=== PATIENT | female | born 1970 | race Caucasian/White ===

== ENCOUNTER 2016-08-30 17:36 | Observation (INO) | payer OTHER ==
[~2016-08-30] VITALS: Ht 162.6 cm; Wt 69.8 kg
[~2016-08-30 17:36] MED LIST: ALPR0.5T3 PO; LEVO50TA4 PO; PROM25TA5 PO; PROT40TA PO; SUCR1TAB PO
[2016-08-30 17:38] VITALS: BP 127/81; PULSE 110; RESP 20; TEMP 98.2; O2SAT 98
[2016-08-30] MEDS ORDERED: SODIUM CHLOR 0.9% 1000 ML INJ 1,000 ML IV SCH (20:56)
[2016-08-30] MEDS ORDERED: KETOROLAC TROMETHAMINE 30 MG/ML (IVP) VIAL IVP ONE (21:00)
[2016-08-30] MEDS ORDERED: SODIUM CHLORIDE 0.9% FLUSH 10 ML FLUSH IV FLUSH PRN (21:00)
[2016-08-30] MEDS ORDERED: ONDANSETRON HCL 4 MG/2 ML VIAL IVP ONE (21:00)
[2016-08-30] MEDS ORDERED: BUPR150XL PO (21:12)
[2016-08-30] MEDS ORDERED: TRAM50TA PO (21:12)
--- NOTE | 2016-08-30 21:19 | PD ---
HPI Chief Complaint: GI Complaint Time Seen by Provider: 20:46 Travel History International Travel<30 days: No Contact w/Intl Traveler<30days: No Traveled to known affect area: No History of Present Illness HPI 45yo F with PMH of hiatal hernia and ulcer presents to the ED with c/o abdominal pain, NBNB vomiting and nonbloody diarrhea for 4 days. States pain is mainly lower abdomen, constant and nonradiating. Denies any fever, chest pain, sob, dysuria, hematuria, vaginal bleeding or discharge. PFSH Past Medical History Hx Anticoagulant Therapy: No Asthma: No Heart Rhythm Problems: No Cardiac Catheterization: No Cardiovascular Problems: No High Cholesterol: Yes Chemotherapy: No Congestive Heart Failure: No COPD: No Cerebrovascular Accident: No Diabetes: No Diminished Hearing: No Gastrointestinal Disorders: Yes (GASTRITIS) Headaches: Yes Hiatal Hernia: Yes Hypertension: No Musculoskeletal: Yes (CHRONIC BACK PAIN) Ulcer: Yes Tetanus Vaccination: > 5 Years Influenza Vaccination: No ?: Not LMP: 03/2016 Menopausal: Yes : 4 Para: 4 Tubal Ligation: Yes (2009) Past Surgical History Surgical History: No Previous Surgery Coronary Artery Bypass Graft: No Hysterectomy: No Mastectomy: Yes (LT LUMPECTOMY NON-CANCER) Oral Surgery: Yes (FX MANDIBLE REPAIR) Other Surgery: Yes (LUMP REMOVED FROM BREAST, JAW REPAIR) Social History Alcohol Use: No (none in 7 years) Tobacco Use: Yes (one pack) Substance Use: No Allergies-Medications (Allergen,Severity, Reaction): Coded Allergies: No Known Allergies (Verified , 08/30/16) Reported Meds & Prescriptions Reported Meds & Active Scripts Active Reported Sucralfate 1 Gm Tab 1 Gm PO TIDACHS on empty stomach Phenergan (Promethazine HCl) 25 Mg Tablet 25 Mg PO Q6H PRN Pantoprazole (Pantoprazole Sodium) 40 Mg Tab 40 Mg PO DAILY Levothyroxine (Levothyroxine Sodium) 50 Mcg Tab 50 Mcg PO DAILY Alprazolam 0.5 Mg Tab 0.5 Mg PO TID PRN Tramadol (Tramadol HCl) 50 Mg Tab 50 Mg PO Q8H PRN Wellbutrin Xl 24 HR (Bupropion HCl) 150 Mg Tab 150 Mg PO DAILY Review of Systems Except as stated in HPI: all other systems reviewed are Neg Physical Exam Narrative GENERAL: 45yo F in mild distress. SKIN: Focused skin assessment warm/dry. HEAD: Atraumatic. Normocephalic. CARDIOVASCULAR: Regular rate and rhythm. No murmur appreciated. RESPIRATORY: No accessory muscle use. Clear to auscultation. Breath sounds equal bilaterally. GASTROINTESTINAL: Abdomen soft, +TTP suprapubic region. No rebound tenderness or guarding. BACK: No CVA tenderness bilaterally. MUSCULOSKELETAL: No obvious deformities. No clubbing. No cyanosis. No edema. NEUROLOGICAL: Awake and alert. No obvious cranial nerve deficits. Motor grossly within normal limits. Normal speech. PSYCHIATRIC: Appropriate mood and affect; insight and judgment normal. Data Data Last Documented VS Vital Signs Date Time Temp Pulse Resp B/P Pulse Ox O2 Delivery O2 Flow Rate FiO2 08/30/16 21:21 93 20 118/75 99 08/30/16 17:38 98.2 Room Air Orders Complete Blood Count With Diff (08/30/16 20:56) Comprehensive Metabolic Panel (08/30/16 20:56) Lipase (08/30/16 20:56) Prothrombin Time / Inr (Pt) (08/30/16 20:56) Act Partial Throm Time (Ptt) (08/30/16 20:56) Urinalysis - C+S If Indicated (08/30/16 20:56) Ct Abd/Pel W Iv Contrast(Rout) (08/30/16 20:56) Iv Access Insert/Monitor (08/30/16 20:56) Ecg Monitoring (08/30/16 20:56) Oximetry (08/30/16 20:56) Ondansetron Inj (Zofran Inj) (08/30/16 21:00) Sodium Chlor 0.9% 1000 Ml Inj (Ns 1000 M (08/30/16 20:56) Sodium Chloride 0.9% Flush (Ns Flush) (08/30/16 21:00) Ketorolac Inj (Toradol Inj) (08/30/16 21:00) Ed Urine Pregnancytest Poc (08/30/16 20:56) Iohexol 350 Inj (Omnipaque 350 Inj) (08/30/16 22:22) Ciprofloxacin 400 Mg Premix (Cipro 400 M (08/30/16 23:15) Metronidazole 500 Mg Inj (Flagyl 500 Mg (08/30/16 23:15) C Diff Toxin Pcr (08/30/16 23:12) Morphine Inj (Morphine Inj) (08/30/16 23:15) Morphine Inj (Morphine Inj) (08/30/16 23:30) Admit Order (Ed Use Only) (08/30/16 23:43) Labs Laboratory Tests Test 08/30/16 08/30/16 21:00 21:43 White Blood Count 7.1 TH/MM3 Red Blood Count 3.73 MIL/MM3 Hemoglobin 11.8 GM/DL Hematocrit 36.2 % Mean Corpuscular Volume 96.9 FL Mean Corpuscular Hemoglobin 31.6 PG Mean Corpuscular Hemoglobin 32.6 % Concent Red Cell Distribution Width 14.0 % Platelet Count 261 TH/MM3 Mean Platelet Volume 8.4 FL Neutrophils (%) (Auto) 51.7 % Lymphocytes (%) (Auto) 33.9 % Monocytes (%) (Auto) 11.6 % Eosinophils (%) (Auto) 2.3 % Basophils (%) (Auto) 0.5 % Neutrophils # (Auto) 3.7 TH/MM3 Lymphocytes # (Auto) 2.4 TH/MM3 Monocytes # (Auto) 0.8 TH/MM3 Eosinophils # (Auto) 0.2 TH/MM3 Basophils # (Auto) 0.0 TH/MM3 CBC Comment AUTO DIFF Differential Comment AUTO DIFF CONFIRMED Prothrombin Time 11.8 SEC Prothromb Time International 1.1 RATIO Ratio Activated Partial 36.6 SEC Thromboplast Time Sodium Level 133 MEQ/L Potassium Level 3.3 MEQ/L Chloride Level 102 MEQ/L Carbon Dioxide Level 22.4 MEQ/L Anion Gap 9 MEQ/L Blood Urea Nitrogen 8 MG/DL Creatinine 0.89 MG/DL Estimat Glomerular Filtration 68 ML/MIN Rate Random Glucose 83 MG/DL Calcium Level 8.4 MG/DL Total Bilirubin 0.2 MG/DL Aspartate Amino Transf 18 U/L (AST/SGOT) Alanine Aminotransferase 12 U/L (ALT/SGPT) Alkaline Phosphatase 123 U/L Total Protein 7.4 GM/DL Albumin 2.6 GM/DL Lipase 134 U/L Urine Color YELLOW Urine Turbidity HAZY Urine pH 6.0 Urine Specific [place] 1.018 Urine Protein TRACE mg/dL Urine Glucose (UA) NEG mg/dL Urine Ketones NEG mg/dL Urine Occult Blood TRACE Urine Nitrite NEG Urine Bilirubin NEG Urine Urobilinogen LESS THAN 2.0 MG/DL Urine Leukocyte Esterase TRACE Urine RBC 2 /hpf Urine WBC 1 /hpf Urine Squamous Epithelial 5 /hpf Cells Urine Bacteria RARE /hpf Urine Hyaline Casts 7 /lpf Microscopic Urinalysis Comment CULT NOT INDICATED MDM Medical Decision Making Medical Screen Exam Complete: Yes Emergency Medical Condition: Yes Differential Diagnosis Cystitis vs. colitis vs. gastroenteritis Narrative Course 45yo F here with vomiting, abdominal pain and diarrhea. Labs reviewed, no leukocytosis. K: 3.3, will replaced. UA showed trace leukocyte. Culture not indicated. CTs/p showed marked bowel wall thickening throughout entire colon also involvement of the distal ileum most suggestive of inflammatory bowel disease. Pt given toradol and zofran and still with abdominal pain and some nausea. Pt given morphine. Pt given cipro/flagyl and admitted to [facility] hospitalist Dr. Whelan. Diagnosis Primary Impression: Pancolitis Admitting Information Admitting Physician Requests: Yolanda Padilla DO Aug 30, 2016 21:19
[2016-08-30 21:21] VITALS: BP 118/75; PULSE 93; RESP 20; O2SAT 99
[2016-08-30 21:34] LABS: AUTOMATED NEUTROPHIL # 3.7 TH/MM3 (1.8-7.7); BASOPHIL % 0.5 % (0.0-2.0); EOSINOPHIL # 0.2 TH/MM3 (0-0.4); EOSINOPHIL % 2.3 % (0.0-4.0); HEMATOCRIT 36.2 % (35.0-46.0); LYMPH % 33.9 % (9.0-44.0); LYMPHOCYTE # 2.4 TH/MM3 (1.0-4.8); MEAN CELL VOLUME 96.9 FL (80.0-100.0); MEAN CORPUSCULAR HEMOGLOBIN 31.6 PG (27.0-34.0); MEAN CORPUSCULAR HGB CONC 32.6 % (32.0-36.0); MONO % 11.6 % (0.0-8.0); NEUT % 51.7 % (16.0-70.0); PLATELET COUNT 261 TH/MM3 (150-450); RED BLOOD COUNT 3.73 MIL/MM3 (4.00-5.30); WHITE BLOOD COUNT 7.1 TH/MM3 (4.0-11.0)
[2016-08-30 21:42] LABS: HEMO FLAGS AUTO DIFF
[2016-08-30] MEDS ORDERED: PANT40TA3 PO (21:47)
[2016-08-30] MEDS ORDERED: LEVO50TA4 PO (21:47)
[2016-08-30] MEDS ORDERED: PROM25TA10 PO (21:47)
[2016-08-30] MEDS ORDERED: ALPR0.5T3 PO (21:47)
[2016-08-30] MEDS ORDERED: SUCR1TAB PO (21:47)
[2016-08-30 21:49] LABS: APTT (PATIENT) 36.6 SEC (24.3-30.1); INTERNATIONAL NORMALIZED RATIO 1.1 RATIO; PROTHROMBIN TIME - PATIENT 11.8 SEC (9.8-11.6)
[2016-08-30 21:53] LABS: ANION GAP 9 MEQ/L (5-15); AST (GOT) 18 U/L (15-37); BICARBONATE 22.4 MEQ/L (21.0-32.0); BLOOD UREA NITROGEN 8 MG/DL (7-18); CHLORIDE 102 MEQ/L (98-107); GLOMERULAR FILTRATION RATE 68 ML/MIN (>89); POTASSIUM 3.3 MEQ/L (3.5-5.1); SODIUM (NA) 133 MEQ/L (136-145)
[2016-08-30 21:54] LABS: ALT (GPT) 12 U/L (10-53)
[2016-08-30 21:55] LABS: BACTERIA, URINE RARE /hpf; BLOOD, URINE TRACE (NEG); COMMENT (UR) CULT NOT INDICATED; CULTURE IF INDICATED CULT NOT INDICATED; GLUCOSE,URINE NEG (NEG); HYALINE CAST, URINE 7 /lpf (RARE); KETONE, URINE NEG (NEG); NITRITE,URINE NEG (NEG); SQUAMOUS EPITHELIAL CELL URINE 5 /hpf (0-5); URINE COLOR YELLOW (YELLW/STRAW)
[2016-08-30 21:56] LABS: ALKALINE PHOSPHATASE 123 U/L (45-117); TOTAL BILIRUBIN ADULT 0.2 MG/DL (0.2-1.0)
[2016-08-30] MEDS ORDERED: IOHEXOL 350 MG/ML 10 ML VIAL (for RAD DIAG) IV ONE (22:22)
[2016-08-30 22:24] LABS: SCAN/DIFF AUTO DIFF CONFIRMED
--- NOTE | 2016-08-30 22:39 | RADRPT ---
EXAM DATE/TIME: 08/30/2016 22:19 [place] COMPARISON: CT ABDOMEN & PELVIS W CONTRAST, March 10, 2015, 18:03. INDICATIONS : Abdominal pain nausea and vomiting for 4 days. IV CONTRAST: 87 cc Omnipaque 350 (iohexol) IV ORAL CONTRAST: No oral contrast ingested. RADIATION DOSE: 7.88 CTDIvol (mGy) MEDICAL HISTORY : hiatal hernia, ulcer, hypercholesterolemia SURGICAL HISTORY : Tubal ligation. left mastectomy ENCOUNTER: Initial ACUITY: 4 - 6 days PAIN SCALE: 7/10 LOCATION: abdomen TECHNIQUE: Volumetric scanning of the abdomen and pelvis was performed. Using automated exposure control and ad justment of the mA and/or kV according to patient size, radiation dose was kept as low as reasonably achievable to obtain optimal diagnostic quality images. DICOM format image data is available electro nically for review and comparison. FINDINGS: LOWER LUNGS: The visualized lower lungs are clear. LIVER: Homogeneous density without lesion. There is no dilation of the biliary tree. SPLEEN: Normal size without lesion. PANCREAS: Normal without calcifications. ADRENAL GLANDS: Within normal limits.. KIDNEYS: Normal in size and shape. There is no mass, stone or hydronephrosis. CECUM: There is marked bowel wall thickening beginning in the terminal ileum extending throughout the entire length of the colon into the rectum. BOWEL/MESENTERY: . There is no free intraperitoneal air or fluid. ABDOMINAL WALL: Within normal limits. RETROPERITONEUM: There is no lymphadenopathy. PELVIS: Marked sigmoid bowel wall thickening is present without free fluid. INGUINAL: There is no lymphadenopathy or hernia. MUSCULOSKELETAL: Within normal limits for patient age. CONCLUSION: Marked bowel wall thickening throughout the entire colon also involvement of the distal ileum most beard ggestive of inflammatory bowel disease. This would be somewhat of an unusual appearance for MENDEZ coli tis the terminal ileum involvement. Chuy Durand MD FACR on August 30, 2016 at 22:35 Board Certified Radiologist. This report was verified electronically.
[2016-08-30] MEDS ORDERED: MORPHINE SULFATE 4 MG/ML INJ IV PUSH ONE (23:15)
[2016-08-30] MEDS ORDERED: CIPROFLOXACIN 400 MG PREMIX 200 ML IV ONE (23:15)
[2016-08-30] MEDS ORDERED: metroNIDAZOLE 500 MG INJ 100 ML IV ONE (23:15)
[2016-08-30] MEDS ORDERED: MORPHINE SULFATE 8 MG/ML INJ IV PUSH ONE (23:30)
[2016-08-30] MEDS: D5-1/2 NS + KCL 20 MEQ INJ 1,000 ML IV SCH (23:55)
[2016-08-31] VITALS (8 sets, daily range): BP systolic 93–115; BP diastolic 52–65; PULSE 70–81; RESP 16–21; TEMP 95.1–96.8; O2SAT 97–100
[2016-08-31] MEDS ORDERED: PROMETHAZINE HCL 25 MG TAB PO PRN
[2016-08-31] MEDS ORDERED: SODIUM CHLORIDE 0.9% FLUSH 10 ML FLUSH IV FLUSH PRN
[2016-08-31] MEDS ORDERED: BISACODYL 10 MG SUPP RECTAL PRN
[2016-08-31] MEDS ORDERED: MAGNESIUM HYDROXIDE SUSP 30 ML CUP PO PRN
[2016-08-31] MEDS ORDERED: NALOXONE HCL 0.4 MG/ML AMP IV PRN
[2016-08-31] MEDS ORDERED: SENNOSIDES 8.6 MG TAB PO PRN
[2016-08-31] MEDS ORDERED: LACTULOSE SYRUP 20 GM/30 ML CUP PO PRN
[2016-08-31] MEDS: ALPRAZolam 0.5 MG TAB PO PRN (01:05)
[2016-08-31] MEDS: MORPHINE SULFATE 8 MG/ML INJ IV PUSH PRN (03:14)
[2016-08-31 05:17] LABS: BICARBONATE 25.1 MEQ/L (21.0-32.0); POTASSIUM 3.3 MEQ/L (3.5-5.1)
[2016-08-31 05:44] LABS: AUTOMATED NEUTROPHIL # 2.6 TH/MM3 (1.8-7.7); BASOPHIL % 0.6 % (0.0-2.0); EOSINOPHIL # 0.1 TH/MM3 (0-0.4); EOSINOPHIL % 2.3 % (0.0-4.0); HEMATOCRIT 32.7 % (35.0-46.0); LYMPH % 42.4 % (9.0-44.0); LYMPHOCYTE # 2.5 TH/MM3 (1.0-4.8); MEAN CELL VOLUME 96.8 FL (80.0-100.0); MEAN CORPUSCULAR HEMOGLOBIN 32.5 PG (27.0-34.0); MEAN CORPUSCULAR HGB CONC 33.5 % (32.0-36.0); MONO % 11.9 % (0.0-8.0); NEUT % 42.8 % (16.0-70.0); PLATELET COUNT 237 TH/MM3 (150-450); RED BLOOD COUNT 3.38 MIL/MM3 (4.00-5.30); RED CELL DISTRIBUTION WIDTH 14.2 % (11.6-17.2)
[2016-08-31] MEDS: D5-1/2 NS + KCL 20 MEQ INJ 1,000 ML IV SCH ×2 (06:05→13:08)
[2016-08-31] MEDS: traMADol HCL 50 MG TAB PO PRN ×3 (06:10→21:06)
[2016-08-31] MEDS: LEVOTHYROXINE SODIUM 50 MCG TAB PO SCH (06:10)
[2016-08-31] MEDS: SUCRALFATE 1 GM TAB PO SCH ×4 (06:10→21:05)
[2016-08-31] MEDS: ONDANSETRON HCL 4 MG/2 ML VIAL IVP PRN (06:10)
[2016-08-31 06:17] LABS: HEMO FLAGS AUTO DIFF
[2016-08-31 06:59] LABS: PLATELET ESTIMATE SMEAR NORMAL (NORMAL); PLATELET MORPHOLOGY NORMAL (NORMAL); SCAN/DIFF AUTO DIFF CONFIRMED
[2016-08-31] MEDS: SODIUM CHLORIDE 0.9% FLUSH 10 ML FLUSH IV FLUSH SCH ×2 (08:20→21:00)
[2016-08-31] MEDS: PANTOPRAZOLE SOD 40 MG DELAYED RELEASE TAB PO SCH (09:00)
[2016-08-31] MEDS: DOCUSATE SODIUM 50 MG/SENNA 8.6 MG TAB PO SCH ×2 (09:47→21:00)
[2016-08-31] MEDS: buPROPion HCL 150 MG EXTENDED RELEASE TAB PO SCH (09:48)
--- NOTE | 2016-08-31 10:50 | PD.CONS ---
HPI History of Present Illness This is a 45 year old female with hx anxiety, hypthyroid, gastric ulcer, family hx IBD who presented with n/v, diarrhea, LLQ pain, weakness onset 5days ago. The LLQ pain has been on an off with no associated, aggravating, or relieving factors but today is constant. She also reports some black stool that appeared as if she was taking iron but she is not. She is having loose stool 3-4 x day. Denies recent abx, travel, diet change, fever. She recently started wellbutrin for anxiety. She has hx ulcer- had EGD 2y ago at [facility] showing ulcer and has been taking protonix ever since. Denies NSAID use, blood thinners. Distant hx heavy drinking and cocaine use but quit 7y ago. Never had colonoscopy. Her grandmother had Crohn's and her son has it. She has lost a few lbs in the last week since being sick but no unintended weight loss prior. PFSH Past Medical History hypothyroid gastric Ulcer hiatal hernia anxiety Past Surgical History left lumpectomy ORIF jaw Coded Allergies: No Known Allergies (Verified , 08/30/16) Family History Crohn's Social History quit drinking 7y ago, prior heavy drinker smokes 1ppd no illicit drug use currently, cocaine in past Review of Systems Constitutional: COMPLAINS OF: Fatigue, DENIES: Fever Eyes: DENIES: Blurred vision Ears, nose, mouth, throat: DENIES: Hearing loss Respiratory: DENIES: Cough Cardiovascular: DENIES: Chest pain Gastrointestinal: COMPLAINS OF: Abdominal pain, Black stools, Diarrhea, Nausea , Vomiting, DENIES: Bloody stools, Constipation, Hematemesis Genitourinary: DENIES: Hematuria Musculoskeletal: DENIES: Joint Swelling Integumentary: DENIES: Rash Neurologic: DENIES: Abnormal gait Psychiatric: COMPLAINS OF: Anxiety, DENIES: Confusion GI Exam Vitals I&O Vital Signs Date Time Temp Pulse Resp B/P Pulse Ox O2 Delivery O2 Flow Rate FiO2 08/31/16 08:00 96.5 73 16 101/55 97 08/31/16 07:10 18 08/31/16 06:00 95.4 81 20 112/62 99 08/31/16 03:15 72 20 97/57 99 08/31/16 02:45 74 20 93/52 100 Nasal Cannula 2 08/31/16 00:42 77 20 115/55 99 08/30/16 21:21 93 20 118/75 99 08/30/16 20:50 20 08/30/16 17:38 98.2 110 20 127/81 98 Room Air I/O 08/30/16 08/30/16 08/30/16 08/31/16 08/31/16 08/31/16 07:00 15:00 23:00 07:00 15:00 23:00 Intake Total 200 ml Balance 200 ml Intake IV Total 200 ml Imaging Last Impressions Abdomen/Pelvis CT 08/30/162055 Signed Impressions: Service Date/Time: Tuesday, August 30, 2016 22:19 - CONCLUSION: Marked bowel wall thickening throughout the entire colon also involvement of the distal ileum most suggestive of inflammatory bowel disease. This would be somewhat of an unusual appearance for MENDEZ colitis the terminal ileum involvement. Chuy Durand MD FACR Laboratory Test 08/30/16 08/30/16 08/31/16 21:00 21:43 04:10 White Blood Count 7.1 TH/MM3 6.0 TH/MM3 Red Blood Count 3.73 MIL/MM3 3.38 MIL/MM3 Hemoglobin 11.8 GM/DL 11.0 GM/DL Hematocrit 36.2 % 32.7 % Mean Corpuscular Volume 96.9 FL 96.8 FL Mean Corpuscular Hemoglobin 31.6 PG 32.5 PG Mean Corpuscular Hemoglobin 32.6 % 33.5 % Concent Red Cell Distribution Width 14.0 % 14.2 % Platelet Count 261 TH/MM3 237 TH/MM3 Mean Platelet Volume 8.4 FL 8.3 FL Neutrophils (%) (Auto) 51.7 % 42.8 % Lymphocytes (%) (Auto) 33.9 % 42.4 % Monocytes (%) (Auto) 11.6 % 11.9 % Eosinophils (%) (Auto) 2.3 % 2.3 % Basophils (%) (Auto) 0.5 % 0.6 % Neutrophils # (Auto) 3.7 TH/MM3 2.6 TH/MM3 Lymphocytes # (Auto) 2.4 TH/MM3 2.5 TH/MM3 Monocytes # (Auto) 0.8 TH/MM3 0.7 TH/MM3 Eosinophils # (Auto) 0.2 TH/MM3 0.1 TH/MM3 Basophils # (Auto) 0.0 TH/MM3 0.0 TH/MM3 CBC Comment AUTO DIFF AUTO DIFF Differential Comment AUTO DIFF AUTO DIFF CONFIRMED CONFIRMED Prothrombin Time 11.8 SEC Prothromb Time International 1.1 RATIO Ratio Activated Partial 36.6 SEC Thromboplast Time Sodium Level 133 MEQ/L 138 MEQ/L Potassium Level 3.3 MEQ/L 3.3 MEQ/L Chloride Level 102 MEQ/L 105 MEQ/L Carbon Dioxide Level 22.4 MEQ/L 25.1 MEQ/L Anion Gap 9 MEQ/L 8 MEQ/L Blood Urea Nitrogen 8 MG/DL 7 MG/DL Creatinine 0.89 MG/DL 0.69 MG/DL Estimat Glomerular Filtration 68 ML/MIN 92 ML/MIN Rate Random Glucose 83 MG/DL 77 MG/DL Calcium Level 8.4 MG/DL 8.0 MG/DL Total Bilirubin 0.2 MG/DL Aspartate Amino Transf 18 U/L (AST/SGOT) Alanine Aminotransferase 12 U/L (ALT/SGPT) Alkaline Phosphatase 123 U/L Total Protein 7.4 GM/DL Albumin 2.6 GM/DL Lipase 134 U/L 108 U/L Urine Color YELLOW Urine Turbidity HAZY Urine pH 6.0 Urine Specific [place] 1.018 Urine Protein TRACE mg/dL Urine Glucose (UA) NEG mg/dL Urine Ketones NEG mg/dL Urine Occult Blood TRACE Urine Nitrite NEG Urine Bilirubin NEG Urine Urobilinogen LESS THAN 2.0 MG/DL Urine Leukocyte Esterase TRACE Urine RBC 2 /hpf Urine WBC 1 /hpf Urine Squamous Epithelial 5 /hpf Cells Urine Bacteria RARE /hpf Urine Hyaline Casts 7 /lpf Microscopic Urinalysis Comment CULT NOT INDICATED Platelet Estimate NORMAL Platelet Morphology Comment NORMAL Red Cell Morphology Comment NORMAL Physical Examination HEENT: PERRL; normocephalic; atraumatic; no jaundice. CHEST: CTA CARDIAC: RRR ABDOMEN: Soft, nondistended, LLQ TTP; no hepatosplenomegaly; bowel sounds are present in all four quadrants. EXTREMITIES: No clubbing, cyanosis, or edema. SKIN: Normal; no rash; no jaundice. ENGAGEMENT LEAD: No focal deficits; alert and oriented times three. Assessment and Plan Plan ASSESSMENT - n/v, abd pain, diarrhea, black stool - fam hx Crohn's. No fever. ONset 5d ago. Hx ulcer - EGD 2y ago. never had colonoscopy. - hyperkalemia - per primary PLAN - stool cx - EGD/colonoscopy - obtain consents - clears today - NPO after midnight - miralax and dulcolax prep - further recommendations to follow This pt seen by myself and Dr Walters and this note is written on his behalf Marlene Gamboa Aug 31, 2016 10:50
--- NOTE | 2016-08-31 11:24 | MH ---
cc: GHADA ALVAREZ MD DATE OF ADMISSION 08/30/2016 DATE OF 1970 REASON FOR HOSPITAL ADMIT GI symptoms, right lower quadrant clamping and pain. HISTORY OF PRESENT ILLNESS This is a pleasant 45-year-old white female who has been struggling with acute abdominal pain, especially associated in the left lower quadrant. She states that the pain radiates across her left and right side, but is tender with light palpation in the left lower quadrant. She describes it as a cramping sensation that is also very painful with some sharp pain. The patient has noted nonbloody diarrhea for four days, some nausea and vomiting initially the first two days, but no vomiting since. She does continue with the decreased appetite and gastrocolic reflex when she tries to eat anything. The patient does note that her mother and her son both have diagnosis of Crohn's disease. The patient does note any weakness and fatigue sensation over the past few weeks. Symptoms described have worsened over the past week. The patient does have a history of hiatal hernia and gastric ulcer. The patient denies any chest pain, shortness of breath. No urinary dysuria symptoms. No headache. No constipation. PAST MEDICAL HISTORY Includes: 1. Ulcer disease 2. 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 4. Hyperlipidemia 5. Gastritis 6. Headaches 7. Chronic back pain 8. Previous alcohol and drug use, but clean for seven years. PAST SURGICAL HISTORY 1. Left lumpectomy non-cancerous 2. Fracture of the mandible and repair 3. Lump removed from breast ALLERGIES No known allergies. MEDICATIONS 1. Carafate 2. Phenergan p.r.n. 3. Propranolol 4. Levothyroxine 5. Xanax as needed 6. Tramadol 7. Wellbutrin SOCIAL HISTORY The patient single, lives in her home with her two children. Her mom this past year, so she has her dad in the home with her care for him. Currently smokes approximately one pack a day. No alcohol use in the past seven years at all. Previous history of some pot and cocaine use, but none in the past 7 years. FAMILY HISTORY Her mother and son both have Crohn's disease. REVIEW OF SYSTEMS A twelve-point review was obtained. Positives as noted in the HPI which include her pain in the left lower quadrant predominantly, but it does radiate across the entire lower abdomen. Mild anxiety noted related to her current condition. Nausea, vomiting, tired fatigue sensations, decreased appetite, weight loss, but unknown amount. Other systems negative or unremarkable. PHYSICAL EXAM VITAL SIGNS: Temperature is 96, pulse 73, respirations 20, blood pressure 101/55 as well was 93/52 and 115/55, O2 sat 97 currently on 2 liters nasal cannula as needed. GENERAL: A slim, but well-nourished white female who looks to be her stated age resting in the bed. SKIN: Pale, but warm and dry. She does have some old, but healed skin lesions/nodules especially on her lower extremities. She does have a few scratches and cuts which she states comes from caring for her animals in the house. HEENT: Atraumatic, normocephalic. PERRLA at 2, mucous membranes are slightly pale. Tongue is dry. Oral cavity is dry. No exudate. NECK: Supple. CARDIOVASCULAR: S1 and S2 regular rate and rhythm. No edema. EXTREMITIES: Lower extremities are warm to touch. Pulses are intact. LUNGS: Essentially clear anteriorly and posteriorly with some mild noisy rhonchi secondary to her smoking. No wheezing noted. ABDOMEN: Round, soft, mild tenderness in the left lower quadrant to light palpation. Active bowel. No distention. MUSCULOSKELETAL: Moves all extremities with purpose. She has no obvious deformities. NEUROLOGIC: She is alert, oriented and an honest good historian. 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 Tongue is midline. Speech is clear. PSYCHIATRIC: Mood and affect are appropriate with a mild anxiety noted. DIAGNOSTIC DATA Sodium 138, potassium 3.3, chloride 105 carbon oxide 25.1, amnion gap 8, BUN 7, creatinine 0.69, GFR was 68 on admission, now 92, random glucose normal at 83 and 77. Calcium is 8 and 8.4, alkaline phosphatase 123, albumin 2.6, lipase 134 and 108. WBC count 6, RBC 3.38 hemoglobin 11, hematocrit 32.7. Diff shows abnormal monocyte level at 11.9, other morphologies are normal. PT/INR is 1.1. Urine is yellow, hazy, pH of 6, specific gravity 1.018, protein trace occult blood and leukocyte esterase, negative for bilirubin, nitrites, ketones, and glucose. Culture is not indicated. IMAGING STUDIES Show abdomen/pelvis CT with marked bowel wall thickening throughout the entire colon and also involvement of the distal ileum most suggestive of inflammatory bowel disease. These would be somewhat of an unusual appearance for pancolitis with terminal ileum involvement. ASSESSMENT/PLAN 1. Inflammatory bowel disease, possible Crohn's disease. 2. History of gastritis and gastroesophageal reflux disease. 3. Hiatal hernia 4. Fatigue 5. Generalized weakness 6. Anemia 7. Hypokalemia 8. Mild protein calorie malnutrition 9. Weight loss 10. Anorexia 11. GI symptoms of nausea, vomiting and abdominal pain. PLAN Our plan is to admit, ECG monitoring, IV access, hydration with IV fluids. The patient was given IV Cipro x1, morphine x1 for pain. C. diff toxin has been ordered. Tramadol for pain management. Carafate and Protonix for gastroesophageal reflux disease and PUD prophylaxis. Medicines have been reconciled as warranted. Her IV fluids have a low dose potassium for stabilization of her hypokalemia. GI consult for their expert opinion. The patient is currently npo. After GI evaluation, further testing will be evaluated for her treatment and plan of care. Currently admission is observation admission. After the next 24 hours of evaluation and treatment regimen, we will adjust if needed our plan of care and process for this patient's hospital course. The patient is a full code, full aggressive care and we will follow. Dictated by PEREZ Romero MD MERVAT Armstrong/MAHESH /10:39 AM /11:00 AM
[2016-08-31] MEDS: HEPARIN SODIUM - SQ 10,000 UNITS/ML VIAL SQ SCH ×3 (13:07→22:58)
[2016-08-31 14:45] LABS: C. DIFF EPI 027 PRESUMPTIVE NEGATIVE (NEGATIVE); C. DIFF TOXIN PCR NEGATIVE (NEGATIVE)
[2016-08-31] MEDS ORDERED: POTASSIUM CHLOR 20 MEQ PREMIX 100 ML IV ONE (14:45)
[2016-08-31] MEDS ORDERED: POLYETHYLENE GLYCOL POWDER 255 GM BTL PO ONE (16:00)
[2016-08-31] MEDS ORDERED: POLYETHYLENE GLYCOL 17 GM PKG PO ONE ×2 (17:00→20:45)
--- NOTE | 2016-08-31 18:51 | HP.UPD ---
H&P Update Note seen, examined by myself, Dr Whelan, today 08/31/16 Pancolitis without evidence of Clostridium difficile Panendoscopy tomorrow GI following Discussed with patient Discussed with mid level provider The exam, history, and the medical decision-making described in the above note were completed with the assistance of the mid-level provider. I reviewed the findings presented. I attest that I had a [id number] encounter with the patient on the same day, and personally performed and documented my assessment and findings in the medical record. Cony Whelan MD Aug 31, 2016 18:50
[2016-08-31] MEDS ORDERED: BISACODYL EC 5 MG TABEC PO ONE (21:00)
[2016-08-31] MEDS ORDERED: LACTATED RINGER'S 1000 ML IV PRN (22:15)
[2016-08-31] MEDS: D5-1/2 NS + KCL 40 MEQ INJ 1,000 ML IV SCH (23:55)
[2016-09-01] VITALS (8 sets, daily range): BP systolic 97–109; BP diastolic 53–72; PULSE 71–84; RESP 17–20; TEMP 95.7–98.1; O2SAT 94–98
[2016-09-01] MEDS: SUCRALFATE 1 GM TAB PO SCH ×5 (06:08→20:41)
[2016-09-01] MEDS: LEVOTHYROXINE SODIUM 50 MCG TAB PO SCH (06:08)
[2016-09-01] MEDS: buPROPion HCL 150 MG EXTENDED RELEASE TAB PO SCH (08:11)
[2016-09-01] MEDS: SODIUM CHLORIDE 0.9% FLUSH 10 ML FLUSH IV FLUSH SCH ×2 (08:11→20:01)
[2016-09-01] MEDS: PANTOPRAZOLE SOD 40 MG DELAYED RELEASE TAB PO SCH ×2 (08:11→15:50)
[2016-09-01] MEDS: DOCUSATE SODIUM 50 MG/SENNA 8.6 MG TAB PO SCH ×2 (08:11→20:41)
[2016-09-01] MEDS: D5-1/2 NS + KCL 40 MEQ INJ 1,000 ML IV SCH (09:55)
[2016-09-01] MEDS ORDERED: GLUCAGON 1 MG/ML VIAL IV ONE (10:56)
[2016-09-01] MEDS ORDERED: PROPOFOL 200 MG/20 ML AMP IV PUSH ONE (11:20)
--- NOTE | 2016-09-01 11:27 | HHI.GIFU ---
Subjective Remarks Immediate postop note: EGD with biopsy and colonoscopy with biopsy Indication: Colitis Meds: MAC Findings: Esophagus: normal Stomach: gastritis biopsy taken Duodenum: two duodenal ulcers bulbar and distal bulb. TI ulcers consistent with crohns disease Biopsy Cecum and ascending colon colitis. Biopsy Rest of colon mild diffuse colitis. Objective Vitals I&O Vital Signs Date Time Temp Pulse Resp B/P Pulse Ox O2 Delivery O2 Flow Rate FiO2 09/01/16 10:22 98.1 75 18 97/53 94 09/01/16 08:00 96.7 75 17 97/53 94 09/01/16 06:00 103/72 09/01/16 04:00 96.1 72 20 97/53 95 09/01/16 00:00 96.6 84 20 109/68 97 08/31/16 20:00 95.1 70 21 106/65 98 08/31/16 16:00 96.8 76 16 104/58 99 08/31/16 12:00 96.5 70 16 100/57 98 I/O 08/31/16 08/31/16 08/31/16 09/01/16 09/01/16 09/01/16 07:00 15:00 23:00 07:00 15:00 23:00 Intake Total 200 ml 570 ml 1651 ml 286 ml Balance 200 ml 570 ml 1651 ml 286 ml Intake Oral 570 ml 900 ml 0 ml IV Total 200 ml 751 ml 286 ml # Voids 7 5 2 # Bowel Movements 7 5 2 Laboratory Laboratory Tests Test 08/31/16 11:30 Stool C. difficile Toxin (PCR) NEGATIVE Stl C. difficile Toxin PRESUMPTIVE Epiderm 027 NEGATIVE Date/Time Procedure Status Source Growth 08/31/16 11:30 Cryptosporidium Exam Received Stool Stool Pending 08/31/16 11:30 Giardia Antigen (BJ) Received Stool Stool Pending 08/31/16 11:30 - Final Complete Stool Stool Campylobacter Species Physical Exam HEENT: Pupils round and reactive to light; normocephalic; atraumatic; no jaundice. Throat is clear. NECK: Neck is supple, no JVD, no lymphadenopathy. CHEST: Chest is clear to auscultation and percussion. CARDIAC: Regular rate and rhythm with no murmur gallop or rubs. ABDOMEN: Soft, nondistended, nontender; no hepatosplenomegaly; bowel sounds are present in all four quadrants. EXTREMITIES: No clubbing, cyanosis, or edema. SKIN: Normal; no rash; no jaundice. 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 Assessment and Plan Plan ASSESSMENT - n/v, abd pain, diarrhea, black stool - fam hx Crohn's. No fever. ONset 5d ago. Hx ulcer - EGD 2y ago. never had colonoscopy. - hyperkalemia - per primary PLAN - stool cx - EGD/colonoscopy today 09/01 showed duodenal ulcers, gastritis. Colon showed crohns disease with ulcers in terminal ileum and diffuse colitis PPI bid and prednisone 40mg daily Wood Walters MD Sep 01, 2016 11:27
--- NOTE | 2016-09-01 12:20 | MR ---
cc: WOOD WALTERS JR., MD, MAZHAR MD DATE: 09/01/2016 PROCEDURE Esophagogastroduodenoscopy with biopsy and colonoscopy with biopsy. INDICATION Colitis and abdominal pain. REFERRING PHYSICIAN Dr. Whelan. PROCEDURE After informed consent was obtained, the patient was placed in left side down position. She was sedated by the anesthesia service. After adequate sedation was achieved the Pentax videoscope was inserted into the oropharynx and advanced to the esophagus, stomach and duodenum. It was then advanced deeply into the duodenum. It was then withdrawn slowly examining the mucosal surfaces carefully. In the antrum of the stomach two biopsies were obtained for gastritis. The scope was retroflexed in the fundus and cardia. The scope was then straightened and pulled through the mouth and the procedure was terminated. Colonoscopy was then performed. Digital rectal examination was normal. The Pentax videoscope was inserted in the anal canal and advanced to the colon reaching the terminal ileum. In the ileum there were a few Crohn's ulcers present, biopsy was obtained. The scope was withdrawn into the cecum and ascending colon and a biopsy was obtained there. The scope was then withdrawn through the rest of the colon and retroflex exam was performed in the rectum. The scope was then straightened and pulled through the anal canal. The procedure was terminated. She tolerated the procedure well and was returned to the recovery area in good condition. FINDINGS 1. The esophagus was normal. 2. In the stomach a biopsy was taken for gastritis. 3. In the duodenum there were two ulcers, one in the duodenal bulb and the other one in a distal bulb. There was no visible vessel, no bleeding. 4. In the terminal ileum there were a few ulcers consistent with Crohn's disease, biopsy was obtained. 5. In the cecum and ascending colon there was colitis. Biopsy was obtained there. 6. The rest of the colon was involved with mild diffuse colitis. IMPRESSION 1. Duodenal ulcers. 2. Gastritis. 3. Crohn's disease with involvement of the terminal ileum and the entire colon. RECOMMENDATIONS 1. We will double the Protonix 40 mg b.i.d. 2. The patient may begin prednisone 40 mg a day. 3. She is to follow up in the office in 2 weeks. 4. Regular diet has been ordered. Wood Walters MD HHS/TLL /11:48 AM /12:14 PM
[2016-09-01] MEDS: HEPARIN SODIUM - SQ 10,000 UNITS/ML VIAL SQ SCH (12:29)
[2016-09-01] MEDS: traMADol HCL 50 MG TAB PO PRN (12:31)
--- NOTE | 2016-09-01 12:32 | HHI.PR ---
Subjective Subjective Remarks resting in bed abd cramping persists eating and drinking soft foods after tests today. vital signs normal (Krista Levy) Review of Systems Constitutional Constitutional: Fatigue, Weight Change, Weakness Constitutional Remarks 10 point ROS done (Krista Levy) GI/Abdomen GI/Abdominal Exam: Diarrhea, Abdominal Pain (Krista Levy) Musculoskeletal MS: Weakness (Krista Levy) Psychiatric Psychiatric: Normal Mood, Anxiety (Krista Levy) Vitals/Results Intake & Output 08/31/16 08/31/16 09/01/16 15:00 23:00 07:00 Intake Total 570 ml 1651 ml 286 ml Balance 570 ml 1651 ml 286 ml Intake Oral 570 ml 900 ml 0 ml IV Total 751 ml 286 ml # Voids 7 5 2 # Bowel Movements 7 5 2 Vital Signs Vital Signs Date Time Temp Pulse Resp B/P Pulse Ox O2 Delivery O2 Flow Rate FiO2 09/01/16 12:00 95.7 78 18 98/64 98 09/01/16 11:43 73 18 98/60 98 09/01/16 11:33 79 18 100/65 98 09/01/16 11:23 98.4 83 18 100/63 99 09/01/16 10:22 98.1 75 18 97/53 94 09/01/16 08:00 96.7 75 17 97/53 94 09/01/16 06:00 103/72 09/01/16 04:00 96.1 72 20 97/53 95 09/01/16 00:00 96.6 84 20 109/68 97 08/31/16 20:00 95.1 70 21 106/65 98 08/31/16 16:00 96.8 76 16 104/58 99 (Krista Levy) CBC/BMP: 08/31/16 0410 08/31/16 0410 Physical Exam Eyes Eye Exam: Pupils Equal, Pupils Reactive (Krista Levy) Ears & Nose Ears & Nose Exam: Nasal Mucosa [place] (Krista Levy) Throat Throat Exam: Oral Mucosa [place] & Moist (Krista Levy) Neck Neck Exam: Neck Supple (Cam,Krista M. COOK SUPERVISOR) Pulmonary Resp Exam: Clear Bilaterally (Cam,Krista M. COOK SUPERVISOR) Cardiology CV Exam: Regular (Byers,Krista M. COOK SUPERVISOR) Gastrointestinal/Abdomen GI Exam: Bowel Sounds Present, Positive Bowel Movement, Non-Distended (Cam, Krista M. COOK SUPERVISOR) Musculoskeletal MS Exam: Joints Intact, Good Strength (Byers,Krista M. COOK SUPERVISOR) Integumentary Skin Exam: Warm, Dry, Intact (Cam,Krista M. COOK SUPERVISOR) Extremeties Extremities Exam: No Edema, Pedal Pulses Palpable (Byers,Krista M. COOK SUPERVISOR) Neurologic Neuro Exam: Alert, Awake, Oriented, Speech Clear, Moving All Extremities ( Cam,Krista M. COOK SUPERVISOR) Assessment/Plan Assessment/Plan 1. Inflammatory bowel disease, Crohn's disease 2. gastritis 3. Hiatal hernia 4. Fatigue 5. Generalized weakness 6. Anemia 7. Hypokalemia 8. Mild protein calorie malnutrition 9. Weight loss 10. Anorexia 11. GI symptoms of nausea, vomiting and abdominal pain. 12. GI ulcers X 2 vitals signs reviewed, normal trends S/P EGD ans colonoscopy, dx of chrohn's diease, ulcers X 2, and gastritis Abd. cramps continue especially on LLQ, states she will need steroids for now and f/u with GI as OP when stable. Symptoms of nausea, vomiting , wt. loss, low K+,fatigue, symptoms of Chrohns. Supportive care. Son has Chrohns. anemia, no acute blood loss, chronic disease monitor labs, symptom management diet advanced, PO Predisone started, continue IVF labs in am, check K (CamKrista M. 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 I reviewed the findings presented. I attest that I had a [id number] encounter with the patient on the same day, and personally performed and documented my assessment and findings in the medical record. (Cony Whelan MD) Krista Levy Sep 01, 2016 12:32 Cony Whelan MD Sep 01, 2016 18:43
[2016-09-01] MEDS ORDERED: POTASSIUM CHLORIDE 25 MEQ EFFERVESCENT TAB PO ONE (14:00)
[2016-09-01] MEDS: ONDANSETRON HCL 4 MG/2 ML VIAL IVP PRN (15:50)
[2016-09-01] MEDS: MORPHINE SULFATE 8 MG/ML INJ IV PUSH PRN ×2 (17:18→20:42)
[2016-09-01] MEDS ORDERED: methylPREDNISolone SOD SUCC 125 MG/2 ML VIAL IV PUSH ONE (18:45)
[2016-09-01] MEDS: predniSONE 20 MG TAB PO SCH (20:41)
[2016-09-01] MEDS: ALPRAZolam 0.5 MG TAB PO PRN (20:41)
[2016-09-02] VITALS: BP 102/55; PULSE 68; RESP 18; TEMP 96.6; O2SAT 98
[2016-09-02] MEDS: MORPHINE SULFATE 8 MG/ML INJ IV PUSH PRN ×3 (04:07→10:47)
[2016-09-02] MEDS: SUCRALFATE 1 GM TAB PO SCH ×3 (06:16→14:40)
[2016-09-02] MEDS: PANTOPRAZOLE SOD 40 MG DELAYED RELEASE TAB PO SCH ×2 (06:17→14:40)
[2016-09-02] MEDS: LEVOTHYROXINE SODIUM 50 MCG TAB PO SCH (06:17)
[2016-09-02 07:31] LABS: BICARBONATE 28.4 MEQ/L (21.0-32.0); POTASSIUM 6.1 MEQ/L (3.5-5.1)
[2016-09-02] MEDS: predniSONE 20 MG TAB PO SCH (07:47)
[2016-09-02] MEDS: buPROPion HCL 150 MG EXTENDED RELEASE TAB PO SCH (07:47)
[2016-09-02] MEDS: SODIUM CHLORIDE 0.9% FLUSH 10 ML FLUSH IV FLUSH SCH (07:47)
[2016-09-02] MEDS: DOCUSATE SODIUM 50 MG/SENNA 8.6 MG TAB PO SCH (07:47)
[2016-09-02 08:00] VITALS: BP 105/58; PULSE 79; RESP 17; TEMP 96.3; O2SAT 95
[2016-09-02] MEDS: HEPARIN SODIUM - SQ 10,000 UNITS/ML VIAL SQ SCH ×2 (10:46)
[2016-09-02] MEDS ORDERED: PRED20 PO (11:50)
[2016-09-02 12:00] VITALS: BP 108/72; PULSE 78; RESP 17; TEMP 95.9; O2SAT 97
[2016-09-02] MEDS ORDERED: MORPHINE SULFATE 30 MG TAB PO PRN ×2 (12:00→12:15)
[2016-09-02] MEDS ORDERED: MSIR30 PO (12:03)
[2016-09-02] MEDS: ALPRAZolam 0.5 MG TAB PO PRN (12:58)
--- NOTE | 2016-09-02 15:16 | HHI.GIFU ---
Subjective Remarks Pt sitting up in bed, getting ready to go home. Still has abd discomfort but n/ v improved. Objective Vitals I&O Vital Signs Date Time Temp Pulse Resp B/P Pulse Ox O2 Delivery O2 Flow Rate FiO2 09/02/16 12:00 95.9 78 17 108/72 97 09/02/16 08:00 96.3 79 17 105/58 95 09/02/16 04:12 18 09/02/16 00:00 96.6 68 18 102/55 98 09/01/16 20:00 97.2 71 20 108/58 96 09/01/16 16:00 97.3 81 18 107/69 96 I/O 09/01/16 09/01/16 09/01/16 09/02/16 09/02/16 09/02/16 07:00 15:00 23:00 07:00 15:00 23:00 Intake Total 286 ml 1020 ml 320 ml 480 ml 240 ml Balance 286 ml 1020 ml 320 ml 480 ml 240 ml Intake Oral 0 ml 220 ml 320 ml 480 ml 240 ml IV Total 286 ml Other 800 ml # Voids 2 5 2 5 3 # Bowel Movements 2 0 0 1 0 Laboratory Laboratory Tests Test 09/02/16 09/02/16 06:05 11:55 Sodium Level 139 Potassium Level 6.1 4.9 Chloride Level 107 Carbon Dioxide Level 28.4 Anion Gap 4 Blood Urea Nitrogen 3 Creatinine 0.54 Estimat Glomerular Filtration 122 Rate Random Glucose 115 Calcium Level 8.1 Date/Time Procedure Status Source Growth 08/31/16 11:30 Cryptosporidium Exam - Final Complete Stool Stool NEGATIVE - NO CRYPTOSPORIDIUM ANTIGEN... 08/31/16 11:30 Giardia Antigen (BJ) - Final Complete Stool Stool NEGATIVE - NO GIARDIA ANTIGEN DETECTE... 08/31/16 11:30 - Final Complete Stool Stool Campylobacter Species Imaging Last Impressions Abdomen/Pelvis CT 08/30/162055 Signed Impressions: Service Date/Time: Tuesday, August 30, 2016 22:19 - CONCLUSION: Marked bowel wall thickening throughout the entire colon also involvement of the distal ileum most suggestive of inflammatory bowel disease. This would be somewhat of an unusual appearance for MENDEZ colitis the terminal ileum involvement. Chuy Durand MD FACR Physical Exam HEENT: PERRL; normocephalic; atraumatic; no jaundice. CHEST: CTA CARDIAC: RRR ABDOMEN: Soft, nondistended, LLQ TTP; no hepatosplenomegaly; bowel sounds are present in all four quadrants. EXTREMITIES: No clubbing, cyanosis, or edema. SKIN: Normal; no rash; no jaundice. TELEVISION PROGRAM DIRECTOR: No focal deficits; alert and oriented times three. Assessment and Plan Plan ASSESSMENT - n/v, abd pain, diarrhea, black stool - fam hx Crohn's. No fever. ONset 5d ago. EGD/colonoscopy 09/01 showed duodenal ulcers, gastritis. Colon showed crohns disease with ulcers in terminal ileum and diffuse colitis - hyperkalemia - per primary PLAN - PPI bid and prednisone 40mg daily - start Pentasa tomorrow - okay for D/C from GI standpoint This pt seen by myself and Dr Walters and this note is written on his behalf Marlene Gamboa Sep 02, 2016 15:16
--- NOTE | 2016-09-02 18:39 | HHI.PR ---
Subjective Interval History Alert, oriented, still complaining of some pain, Ultram changed to oral morphine , Review of Systems Constitutional Constitutional: Fatigue, Weight Change, Weakness Constitutional Remarks 10 systems reviewed and negative except for the above GI/Abdomen GI/Abdominal Exam: Diarrhea, Abdominal Pain Musculoskeletal MS: Weakness Psychiatric Psychiatric: Normal Mood, Anxiety Vitals/Results Intake & Output 09/01/16 09/01/16 09/02/16 15:00 23:00 07:00 Intake Total 1020 ml 320 ml 480 ml Balance 1020 ml 320 ml 480 ml Intake Oral 220 ml 320 ml 480 ml Other 800 ml # Voids 5 2 5 # Bowel Movements 0 0 1 Vital Signs Vital Signs Date Time Temp Pulse Resp B/P Pulse Ox O2 Delivery O2 Flow Rate FiO2 09/02/16 12:00 95.9 78 17 108/72 97 09/02/16 08:00 96.3 79 17 105/58 95 09/02/16 04:12 18 09/02/16 00:00 96.6 68 18 102/55 98 09/01/16 20:00 97.2 71 20 108/58 96 CBC/BMP: 08/31/16 0410 09/02/16 1155 Lab Results Laboratory Tests Test 09/02/16 09/02/16 06:05 11:55 Sodium Level 139 MEQ/L Potassium Level 6.1 MEQ/L 4.9 MEQ/L Chloride Level 107 MEQ/L Carbon Dioxide Level 28.4 MEQ/L Anion Gap 4 MEQ/L Blood Urea Nitrogen 3 MG/DL Creatinine 0.54 MG/DL Estimat Glomerular Filtration 122 ML/MIN Rate Random Glucose 115 MG/DL Calcium Level 8.1 MG/DL Physical Exam General General Appearance: Well Nourished, Anxious Eyes Eye Exam: Pupils Equal, Pupils Reactive Ears & Nose Ears & Nose Exam: Nasal Mucosa [place] Throat Throat Exam: Oral Mucosa [place] & Moist Neck Neck Exam: Neck Supple Pulmonary Resp Exam: Clear Bilaterally Cardiology CV Exam: Regular Gastrointestinal/Abdomen GI Exam: Bowel Sounds Present, Positive Bowel Movement, Non-Distended Musculoskeletal MS Exam: Good Strength Integumentary Skin Exam: Warm, Dry, Intact Extremeties Extremities Exam: No Edema, Pedal Pulses Palpable Neurologic Neuro Exam: Alert, Awake, Oriented, Speech Clear Assessment/Plan Assessment/Plan Assessment Abdominal pain on admission, improved Status post panendoscopy this admission on 7/12/17 New diagnosis of duodenal ulcer New diagnosis of gastritis Possible new onset Crohn's disease Management Discharge home today Continue steroids Continue Protonix Follow-up with nephrology in 1-2 weeks Discussed with patient Discussed with nurse Discharge Minutes: 40 Cony Whelan MD Sep 02, 2016 18:39
[2016-09-03] MEDS ORDERED: MESALAMINE 250 MG CAP PO SCH (08:00)
== END 2016-09-02 16:14 | disposition home or self-care (01) ==
LOC: NEPD 17:36 → NEDA 23:45 → NEDH 08-31 03:45 → N07A 08-31 06:03
PROVIDERS: ADMIT Specialist; ATTEND Specialist
DX: K29.50 Unspecified chronic gastritis without bleeding (principal); K50.80 Crohn's disease of both small and large intestine without complications; K26.9 Duodenal ulcer, unspecified as acute or chronic, without hemorrhage or perforation; K63.3 Ulcer of intestine; K52.9 Noninfective gastroenteritis and colitis, unspecified; K21.9 Gastro-esophageal reflux disease without esophagitis; K44.9 Diaphragmatic hernia without obstruction or gangrene; R53.83 Other fatigue; R53.1 Weakness; D64.9 Anemia, unspecified; E87.6 Hypokalemia; E44.1 Mild protein-calorie malnutrition; E78.5 Hyperlipidemia, unspecified; E78.00 Pure hypercholesterolemia, unspecified; E03.9 Hypothyroidism, unspecified; G89.29 Other chronic pain; M54.9 Dorsalgia, unspecified; F41.9 Anxiety disorder, unspecified; F17.200 Nicotine dependence, unspecified, uncomplicated; Z79.899 Other long term (current) drug therapy
CPT/HCPCS: 00740; 00810; 43239; 45380; 74177; 80048; 80053; 81001; 83690; 84132; 84703; 85025; 85610; 85730; 87328; 87329; 87493; 87506; 88305; 88312; 96374; 96375; 99285; G0378; J0744; J1610; J1644; J1885; J2270; J2405; J2930; J3480; J7030; J7512; Q0169; Q9967

== ENCOUNTER 2016-09-19 23:55 | Emergency (ER) | payer OTHER ==
[~2016-09-19] VITALS: Ht 170.2 cm; Wt 70.0 kg
[~2016-09-19 23:55] MED LIST changes: +BUPR150XL PO; +MSIR30 PO; +PANT40TA3 PO; +PRED20 PO; +PROM25TA10 PO; -PROM25TA5 PO; -PROT40TA PO
[2016-09-20] VITALS: BP 144/78; PULSE 98; RESP 16; TEMP 98.3; O2SAT 98
[2016-09-20 00:15] VITALS: RESP 16; O2SAT 98
--- NOTE | 2016-09-20 01:14 | PD ---
HPI Chief Complaint: Abdominal Pain Time Seen by Provider: 00:58 Travel History International Travel<30 days: No Contact w/Intl Traveler<30days: No Traveled to known affect area: No History of Present Illness HPI 45 years old female complains of abdominal pain with nausea vomiting. Patient has history of Crohn's disease. Patient was admitted and discharged from [facility] 2 weeks ago. Patient states that the pain never resolved completely. Patient has appointment to follow with GI specialist soon. Patient states that she had 3 beers this evening. Patient states that she has increasing abdominal pain this evening. Patient states the pain is burning pain sharp pain around the epigastric and cramping pain on the left side abdomen. Patient denies any pain radiation. Patient denies any fever chills. Patient states that she has intermittent nausea vomiting tonight. Patient denies any dysuria or frequency. Patient denies any back pain. Patient has history of peptic ulcer, depression, hyperlipidemia, anxiety, headache. Patient status post tubal ligation, lumpectomy, jaw surgery. PFSH Past Medical History Hx Anticoagulant Therapy: No Asthma: No Blood Disorders: No Anxiety: Yes Depression: Yes Heart Rhythm Problems: No Cancer: No Cardiac Catheterization: No Cardiovascular Problems: No High Cholesterol: Yes Chemotherapy: No Congestive Heart Failure: No COPD: No Cerebrovascular Accident: No Diabetes: No Diminished Hearing: No Endocrine: No Gastrointestinal Disorders: Yes (GASTRITIS) Genitourinary: No Headaches: Yes Hiatal Hernia: Yes Hypertension: No Immune Disorder: No Musculoskeletal: No Neurologic: No Psychiatric: Yes (life becoming stressful) Reproductive: No (mesus Q 4-6 mos) Respiratory: No Ulcer: Yes Tetanus Vaccination: < 5 Years Influenza Vaccination: No ?: Not Menopausal: Yes : 4 Para: 4 Tubal Ligation: Yes (2009) Past Surgical History Coronary Artery Bypass Graft: No Hysterectomy: No Mastectomy: Yes (LT LUMPECTOMY NON-CANCER) Oral Surgery: Yes (FX MANDIBLE REPAIR) Other Surgery: Yes (lump out of breast) Family History Family Myocardial Infarction: Yes (FATHER AND GRANDFATHER HAD GARCIA'S.) Social History Alcohol Use: No (none in 7 years) Tobacco Use: Yes (one pack) Substance Use: No Allergies-Medications (Allergen,Severity, Reaction): Coded Allergies: No Known Allergies (Verified , 09/19/16) Reported Meds & Prescriptions Reported Meds & Active Scripts Active Morphine IR (Morphine Sulfate) 30 Mg Tab 30 Mg PO Q4H PRN Prednisone 20 Mg Tab 20 Mg PO BID Reported Sucralfate 1 Gm Tab 1 Gm PO TIDACHS on empty stomach Phenergan (Promethazine HCl) 25 Mg Tablet 25 Mg PO Q6H PRN Pantoprazole (Pantoprazole Sodium) 40 Mg Tab 40 Mg PO DAILY Levothyroxine (Levothyroxine Sodium) 50 Mcg Tab 50 Mcg PO DAILY Alprazolam 0.5 Mg Tab 0.5 Mg PO TID PRN Wellbutrin Xl 24 HR (Bupropion HCl) 150 Mg Tab 150 Mg PO DAILY Review of Systems General / Constitutional: No: Fever Eyes: No: Visual changes HENT: No: Headaches Cardiovascular: No: Chest Pain or Discomfort Respiratory: No: Shortness of Breath Gastrointestinal: Positive: Nausea, Vomiting, Abdominal Pain Genitourinary: No: Dysuria Musculoskeletal: No: Pain Skin: No Rash Neurologic: No: Weakness Psychiatric: No: Depression Endocrine: No: Polydipsia Hematologic/Lymphatic: No: Easy Bruising Physical Exam Narrative GENERAL: Well-nourished, well-developed patient. SKIN: Focused skin assessment warm/dry. HEAD: Normocephalic. EYES: No scleral icterus. No injection or drainage. NECK: Supple, trachea midline. No JVD or lymphadenopathy. CARDIOVASCULAR: Regular rate and rhythm without murmurs, gallops, or rubs. RESPIRATORY: Breath sounds equal bilaterally. No accessory muscle use. GASTROINTESTINAL: Abdomen soft, nondistended. Patient has mild to moderate tenderness of patient epigastric and left side abdomen. No rebound tenderness. No mass. MUSCULOSKELETAL: No cyanosis, or edema. BACK: Nontender without obvious deformity. No CVA tenderness. Neurologic exam normal. Data Data Last Documented VS Vital Signs Date Time Temp Pulse Resp B/P Pulse Ox O2 Delivery O2 Flow Rate FiO2 09/20/16 00:02 16 09/20/16 00:00 98.3 98 144/78 98 Orders Complete Blood Count With Diff (09/20/16 01:05) Comprehensive Metabolic Panel (09/20/16 01:05) Prothrombin Time / Inr (Pt) (09/20/16 01:05) Act Partial Throm Time (Ptt) (09/20/16 01:05) Lipase (09/20/16 01:05) Urinalysis - C+S If Indicated (09/20/16 01:05) Chest, Single Ap (09/20/16 01:05) Ct Abd/Pel W Iv Contrast(Rout) (09/20/16 01:05) Iv Access Insert/Monitor (09/20/16 01:05) Ecg Monitoring (09/20/16 01:05) Oximetry (09/20/16 01:05) Alcohol (Ethanol) (09/20/16 01:05) Morphine Inj (Morphine Inj) (09/20/16 01:15) Ondansetron Inj (Zofran Inj) (09/20/16 01:15) Iohexol 350 Inj (Omnipaque 350 Inj) (09/20/16 03:03) Labs Laboratory Tests Test 09/20/16 01:10 White Blood Count 15.3 TH/MM3 Red Blood Count 3.63 MIL/MM3 Hemoglobin 12.1 GM/DL Hematocrit 35.2 % Mean Corpuscular Volume 97.1 FL Mean Corpuscular Hemoglobin 33.2 PG Mean Corpuscular Hemoglobin 34.2 % Concent Red Cell Distribution Width 15.0 % Platelet Count 383 TH/MM3 Mean Platelet Volume 7.1 FL Neutrophils (%) (Auto) 68.2 % Lymphocytes (%) (Auto) 25.3 % Monocytes (%) (Auto) 5.0 % Eosinophils (%) (Auto) 1.1 % Basophils (%) (Auto) 0.4 % Neutrophils # (Auto) 10.5 TH/MM3 Lymphocytes # (Auto) 3.9 TH/MM3 Monocytes # (Auto) 0.8 TH/MM3 Eosinophils # (Auto) 0.2 TH/MM3 Basophils # (Auto) 0.1 TH/MM3 CBC Comment DIFF FINAL Differential Comment Prothrombin Time 10.9 SEC Prothromb Time International 1.0 RATIO Ratio Activated Partial 25.1 SEC Thromboplast Time Sodium Level 138 MEQ/L Potassium Level 3.8 MEQ/L Chloride Level 100 MEQ/L Carbon Dioxide Level 29.6 MEQ/L Anion Gap 8 MEQ/L Blood Urea Nitrogen 11 MG/DL Creatinine 0.61 MG/DL Estimat Glomerular Filtration 106 ML/MIN Rate Random Glucose 74 MG/DL Calcium Level 8.0 MG/DL Total Bilirubin 0.3 MG/DL Aspartate Amino Transf 20 U/L (AST/SGOT) Alanine Aminotransferase 19 U/L (ALT/SGPT) Alkaline Phosphatase 73 U/L Total Protein 7.0 GM/DL Albumin 3.3 GM/DL Lipase 131 U/L Ethyl Alcohol Level 127 MG/DL [facility] Medical Decision Making Medical Screen Exam Complete: Yes Emergency Medical Condition: Yes Interpretation(s) Last Impressions Chest X-Ray 09/20/16104 Signed Impressions: Service Date/Time: Tuesday, September 20, 2016 01:29 - CONCLUSION: No acute disease. Artie Billy MD Abdomen/Pelvis CT 09/20/16104 Signed Impressions: Service Date/Time: Tuesday, September 20, 2016 02:59 - CONCLUSION: 1. Mildly nonspecific, nonobstructive bowel gas pattern which could represent a mild ileus or gastroenteritis. 2. No free air or fluid. Artie Billy MD 3:45 AM. CBC WBC 15.3. Normal differential. CMP within normal limit. Alcohol 127. Differential Diagnosis Differential diagnosis: Gastritis, PUD, pancreatitis, cholecystitis, colitis, UTI, pyelonephritis, nephrolithiasis, acute exacerbation of Crohn's disease Narrative Course 45 years old female with epigastric and left-sided abdominal pain. History of Crohn's disease. Normal saline solution 1 25 cc an hour. Protonix 40 mg IV. Zofran 4 mg IV. Morphine 2 mg IV. Diagnosis Primary Impression: Gastroenteritis Additional Impression: Alcohol abuse Patient Instructions: General Instructions Additional Instructions: Continue with Protonix and Carafate as directed. Bentyl as directed. Follow up with GI specialist as scheduled. Return if worse. Med/Other Pt SpecificInfo: Prescription(s) given Scripts Dicyclomine (Bentyl)10 Mg Cap10 Mg PO TID PRN (Bowel Management) #21 CAP Ref 0 Prov:Zhen Martinez MD 09/20/16 Disposition: 01 DISCHARGE HOME Condition: Stable (ERASED) Zhen Martinez MD Sep 20, 2016 01:14
[2016-09-20] MEDS ORDERED: ONDANSETRON HCL 4 MG/2 ML VIAL IV PUSH ONE (01:15)
[2016-09-20] MEDS ORDERED: MORPHINE SULFATE 4 MG/ML INJ IV PUSH ONE (01:15)
--- NOTE | 2016-09-20 01:34 | RADRPT ---
EXAM DATE/TIME: 09/20/2016 01:29 [facility] COMPARISON: CHEST SINGLE AP, March 10, 2015, 15:50. INDICATIONS : Chest pain. MEDICAL HISTORY : hiatal hernia, ulcer, hypercholesterolemia SURGICAL HISTORY : Tubal ligation. left mastectomy ENCOUNTER: Initial ACUITY: 1 day PAIN SCORE: 0/10 LOCATION: Bilateral chest FINDINGS: A single view of the chest demonstrates the lungs to be symmetrically aerated without evidence of mas s, infiltrate or effusion. The cardiomediastinal contours are unremarkable. Osseous structures are intact. CONCLUSION: No acute disease. Artie Billy MD on September 20, 2016 at 1:32 Board Certified Radiologist. This report was verified electronically.
[2016-09-20 01:51] LABS: AUTOMATED NEUTROPHIL # 10.5 TH/MM3 (1.8-7.7); BASOPHIL # 0.1 TH/MM3 (0-0.2); BASOPHIL % 0.4 % (0.0-2.0); EOSINOPHIL # 0.2 TH/MM3 (0-0.4); EOSINOPHIL % 1.1 % (0.0-4.0); HEMATOCRIT 35.2 % (35.0-46.0); HEMO FLAGS DIFF FINAL; LYMPH % 25.3 % (9.0-44.0); LYMPHOCYTE # 3.9 TH/MM3 (1.0-4.8); MEAN CELL VOLUME 97.1 FL (80.0-100.0); MEAN CORPUSCULAR HEMOGLOBIN 33.2 PG (27.0-34.0); MEAN CORPUSCULAR HGB CONC 34.2 % (32.0-36.0); NEUT % 68.2 % (16.0-70.0); PLATELET COUNT 383 TH/MM3 (150-450); RED BLOOD COUNT 3.63 MIL/MM3 (4.00-5.30); WHITE BLOOD COUNT 15.3 TH/MM3 (4.0-11.0)
[2016-09-20 01:58] LABS: APTT (PATIENT) 25.1 SEC (24.3-30.1); PROTHROMBIN TIME - PATIENT 10.9 SEC (9.8-11.6)
[2016-09-20 02:10] LABS: ALKALINE PHOSPHATASE 73 U/L (45-117); TOTAL BILIRUBIN ADULT 0.3 MG/DL (0.2-1.0)
[2016-09-20 02:12] LABS: ALT (GPT) 19 U/L (10-53); ANION GAP 8 MEQ/L (5-15); AST (GOT) 20 U/L (15-37); BICARBONATE 29.6 MEQ/L (21.0-32.0); BLOOD UREA NITROGEN 11 MG/DL (7-18); CHLORIDE 100 MEQ/L (98-107); GLOMERULAR FILTRATION RATE 106 ML/MIN (>89); POTASSIUM 3.8 MEQ/L (3.5-5.1); SODIUM (NA) 138 MEQ/L (136-145)
[2016-09-20] MEDS ORDERED: IOHEXOL 350 MG/ML 10 ML VIAL (for RAD DIAG) IV ONE (03:03)
--- NOTE | 2016-09-20 03:22 | RADRPT ---
EXAM DATE/TIME: 09/20/2016 02:59 [facility] COMPARISON: CT ABDOMEN & PELVIS W CONTRAST, August 30, 2016, 22:19. INDICATIONS : Recent Crohn's disease diagnosis. Epigastric and left sided abdominal pain. IV CONTRAST: 95 cc Omnipaque 350 (iohexol) IV ORAL CONTRAST: No oral contrast ingested. RADIATION DOSE: 9.96 CTDIvol (mGy) MEDICAL HISTORY : Hernia, hiatal. Crohns disease. SURGICAL HISTORY : Tubal ligation. ENCOUNTER: Initial ACUITY: 1 day PAIN SCALE: 10/10 LOCATION: Bilateral abdomen TECHNIQUE: Volumetric scanning of the abdomen and pelvis was performed. Using automated exposure control and ad justment of the mA and/or kV according to patient size, radiation dose was kept as low as reasonably achievable to obtain optimal diagnostic quality images. DICOM format image data is available electro nically for review and comparison. FINDINGS: LOWER LUNGS: The visualized lower lungs are clear. LIVER: Homogeneous density without lesion. There is no dilation of the biliary tree. No calcified gallston es. SPLEEN: Normal size without lesion. PANCREAS: Within normal limits. KIDNEYS: Normal in size and shape. There is no mass, stone or hydronephrosis. ADRENAL GLANDS: Within normal limits. VASCULAR: There is no aortic aneurysm. BOWEL/MESENTERY: No oral contrast was given limiting the sensitivity of the exam. There is no free air or fluid. There are multiple loops of nondilated air-containing small bowel with several small air-fluid levels. The colon is unremarkable in appearance. ABDOMINAL WALL: Within normal limits. RETROPERITONEUM: There is no lymphadenopathy. BLADDER: No wall thickening or mass. REPRODUCTIVE: Within normal limits. INGUINAL: There is no lymphadenopathy or hernia. MUSCULOSKELETAL: Within normal limits for patient age. CONCLUSION: 1. Mildly nonspecific, nonobstructive bowel gas pattern which could represent a mild ileus or gastroe nteritis. 2. No free air or fluid. Artie Billy MD on September 20, 2016 at 3:16 Board Certified Radiologist. This report was verified electronically.
[2016-09-20] MEDS ORDERED: DICY10 PO (04:11)
[2016-09-20 04:18] VITALS: BP 135/64
== END 2016-09-20 04:20 | disposition home or self-care (01) ==
LOC: NEPC 23:55
DX: K50.90 Crohn's disease, unspecified, without complications (principal); F10.10 Alcohol abuse, uncomplicated; Y90.6 Blood alcohol level of 120-199 mg/100 ml; Z72.0 Tobacco use
CPT/HCPCS: 71010; 74177; 80053; 80307; 83690; 85025; 85610; 85730; 96374; 96375; 99285; J2270; J2405; Q9967

== ENCOUNTER 2016-10-14 14:27 | Observation (INO) | payer OTHER ==
[2016-10-14] VITALS (7 sets, daily range): BP systolic 113–151; BP diastolic 68–87; PULSE 74–91; RESP 16–19; TEMP 98–98.2; O2SAT 97–100
[~2016-10-14] VITALS: Ht 162.6 cm; Wt 68.0 kg
[~2016-10-14 14:27] MED LIST changes: +DICY10 PO
--- NOTE | 2016-10-14 14:50 | PD ---
Physical Exam Time Seen by Provider: 14:49 Narrative 45yo F c/o epigastric pain since Tuesday. Hx of Crohns disease. GI cant see her until Spet 13. +N,V. Denies diarrhea, fever. Patient seen in triage. VS reviewed. Awaiting bed placement. Data Data Last Documented VS Vital Signs Date Time Temp Pulse Resp B/P (MAP) Pulse Ox O2 Delivery O2 Flow Rate FiO2 10/14/16 14:30 98.0 84 16 146/84 (104) 99 Orders Orders Complete Blood Count With Diff (10/14/16 14:47) Comprehensive Metabolic Panel (10/14/16 14:47) Urinalysis - C+S If Indicated (10/14/16 14:47) Ed Urine Pregnancytest Poc (10/14/16 14:47) Iv Access Insert/Monitor (10/14/16 14:47) Oxygen Administration (10/14/16 14:47) Oximetry (10/14/16 14:47) Lipase (10/14/16 14:47) MDM Supervised Visit with SELVIN: Lidia Ross Oct 14, 2016 14:50
[2016-10-14 16:11] LABS: AUTOMATED NEUTROPHIL # 12.7 TH/MM3 (1.8-7.7); BASOPHIL # 0.1 TH/MM3 (0-0.2); BASOPHIL % 0.3 % (0.0-2.0); EOSINOPHIL % 0.1 % (0.0-4.0); HEMATOCRIT 40.2 % (35.0-46.0); HEMO FLAGS DIFF FINAL; LYMPH % 15.6 % (9.0-44.0); LYMPHOCYTE # 2.5 TH/MM3 (1.0-4.8); MEAN CELL VOLUME 101.8 FL (80.0-100.0); MEAN CORPUSCULAR HEMOGLOBIN 32.3 PG (27.0-34.0); MEAN CORPUSCULAR HGB CONC 31.7 % (32.0-36.0); MONO % 3.9 % (0.0-8.0); NEUT % 80.1 % (16.0-70.0); PLATELET COUNT 424 TH/MM3 (150-450); RED BLOOD COUNT 3.95 MIL/MM3 (4.00-5.30); RED CELL DISTRIBUTION WIDTH 15.7 % (11.6-17.2); WHITE BLOOD COUNT 15.8 TH/MM3 (4.0-11.0)
[2016-10-14 16:12] LABS: BLOOD, URINE TRACE (NEG); COMMENT (UR) CULT NOT INDICATED; CULTURE IF INDICATED CULT NOT INDICATED; GLUCOSE,URINE NEG (NEG); HYALINE CAST, URINE 8 /lpf (RARE); KETONE, URINE NEG (NEG); MUCUS URINE FEW /lpf (OCC); NITRITE,URINE NEG (NEG); SQUAMOUS EPITHELIAL CELL URINE 4 /hpf (0-5); URINE COLOR YELLOW (YELLW/STRAW)
[2016-10-14] MEDS ORDERED: RANI300T PO (16:31)
[2016-10-14 16:47] LABS: ALKALINE PHOSPHATASE 91 U/L (45-117); TOTAL BILIRUBIN ADULT 0.4 MG/DL (0.2-1.0)
[2016-10-14 16:48] LABS: ALT (GPT) 20 U/L (10-53); ANION GAP 12 MEQ/L (5-15); AST (GOT) 26 U/L (15-37); BICARBONATE 23.4 MEQ/L (21.0-32.0); BLOOD UREA NITROGEN 6 MG/DL (7-18); CHLORIDE 102 MEQ/L (98-107); GLOMERULAR FILTRATION RATE 89 ML/MIN (>89); SODIUM (NA) 137 MEQ/L (136-145)
[2016-10-14] MEDS ORDERED: SODIUM CHLOR 0.9% 1000 ML INJ 1,000 ML IV SCH (16:53)
--- NOTE | 2016-10-14 16:55 | PD ---
HPI Chief Complaint: GI Complaint Time Seen by Provider: 16:20 Travel History International Travel<30 days: No Contact w/Intl Traveler<30days: No Traveled to known affect area: No PFSH Past Medical History Hx Anticoagulant Therapy: No Asthma: No Blood Disorders: No Anxiety: Yes Depression: Yes Heart Rhythm Problems: No Cancer: No Cardiac Catheterization: No Cardiovascular Problems: No High Cholesterol: Yes Chemotherapy: No Congestive Heart Failure: No COPD: No Cerebrovascular Accident: No Diabetes: No Diminished Hearing: No Endocrine: No Gastrointestinal Disorders: Yes (GASTRITIS) Genitourinary: No Headaches: Yes Hiatal Hernia: Yes Hypertension: No Immune Disorder: No Musculoskeletal: No Neurologic: No Psychiatric: Yes (life becoming stressful) Reproductive: No (mesus Q 4-6 mos) Respiratory: No Thyroid Disease: Yes Ulcer: Yes ?: Not LMP: 6 months ago Menopausal: Yes : 4 Para: 4 Tubal Ligation: Yes (2009) Past Surgical History Coronary Artery Bypass Graft: No Hysterectomy: No Mastectomy: Yes (LT LUMPECTOMY NON-CANCER) Oral Surgery: Yes (FX MANDIBLE REPAIR) Other Surgery: Yes (lump out of breast) Family History Family Myocardial Infarction: Yes (FATHER AND GRANDFATHER HAD GARCIA'S.) Social History Alcohol Use: No (none in 7 years) Tobacco Use: Yes (one pack) Substance Use: No Allergies-Medications (Allergen,Severity, Reaction): Coded Allergies: No Known Allergies (Verified , 10/14/16) Reported Meds & Prescriptions Reported Meds & Active Scripts Active Prednisone 20 Mg Tab 20 Mg PO BID Reported Ranitidine (Ranitidine HCl) 300 Mg Tab 300 Mg PO HS Sucralfate 1 Gm Tab 1 Gm PO TIDACHS on empty stomach Pantoprazole (Pantoprazole Sodium) 40 Mg Tab 40 Mg PO DAILY Alprazolam 0.5 Mg Tab 0.5 Mg PO TID PRN Data Data Last Documented VS Vital Signs Date Time Temp Pulse Resp B/P (MAP) Pulse Ox O2 Delivery O2 Flow Rate FiO2 10/14/16 18:04 88 19 151/86 (107) 100 Room Air 10/14/16 14:30 98.0 Orders Orders Complete Blood Count With Diff (10/14/16 14:47) Comprehensive Metabolic Panel (10/14/16 14:47) Urinalysis - C+S If Indicated (10/14/16 14:47) Ed Urine Pregnancytest Poc (10/14/16 14:47) Iv Access Insert/Monitor (10/14/16 14:47) Oxygen Administration (10/14/16 14:47) Oximetry (10/14/16 14:47) Lipase (10/14/16 14:47) Electrocardiogram (10/14/16 16:53) Ckmb (Isoenzyme) Profile (10/14/16 16:53) Troponin I (10/14/16 16:53) Chest, Single Ap (10/14/16 16:53) Sodium Chlor 0.9% 1000 Ml Inj (Ns 1000 M (10/14/16 16:53) Al-Mag Hy-Si 40-40-4 Mg/Ml Liq (Mag-Al P (10/14/16 17:00) Lidocaine 2% Viscous (Xylocaine 2% Visco (10/14/16 17:00) Pantoprazole Inj (Protonix Inj) (10/14/16 17:00) Aspirin Chew (Aspirin Chew) (10/14/16 17:30) Potassium Chloride Powder (Kcl Powder) (10/14/16 18:30) Morphine Inj (Morphine Inj) (10/14/16 18:45) Ondansetron Inj (Zofran Inj) (10/14/16 18:45) Admit Order (Ed Use Only) (10/14/16 18:39) Activity Bed Rest With Brp (10/14/16 18:40) Vital Signs (Adult) Q4H (10/14/16 18:40) Cardiac Rhythm .As Directed (10/14/16 18:40) Notify Dr: Other .PRN (10/14/16 18:40) Notify DrMarilin Parameters (10/14/16 18:40) Resp Oxygen Nasal Cannula (10/14/16 ) Diet Npo (10/15/16 Breakfast) Diet Heart Healthy (10/14/16 Dinner) Ckmb (Isoenzyme) Profile (10/14/16 18:40) Ckmb (Isoenzyme) Profile (10/14/16 21:40) Troponin I (10/14/16 18:40) Troponin I (10/14/16 21:40) Electrocardiogram (10/14/16 20:30) Electrocardiogram (10/14/16 23:30) ^ Obtain (10/14/16 18:40) Sodium Chloride 0.9% Flush (Ns Flush) (10/14/16 18:45) Sodium Chloride 0.9% Flush (Ns Flush) (10/14/16 21:00) Acetaminophen (Tylenol) (10/14/16 18:45) Ondansetron Inj (Zofran Inj) (10/14/16 18:45) Nitroglycerin Sl (Nitrostat Sl) (10/14/16 18:45) Youth Officer / Telemetry BART.Q8H (10/14/16 18:40) Wilian Bilateral/Knee High BART.QSHIFT (10/14/16 18:40) Labs Laboratory Tests Test 10/14/16 15:20 10/14/16 15:25 Urine Color YELLOW Urine Turbidity CLEAR Urine pH 6.0 Urine Specific [place] 1.028 Urine Protein TRACE mg/dL Urine Glucose (UA) NEG mg/dL Urine Ketones NEG mg/dL Urine Occult Blood TRACE Urine Nitrite NEG Urine Bilirubin NEG Urine Urobilinogen 2.0 MG/DL Urine Leukocyte Esterase NEG Urine RBC 1 /hpf Urine WBC 1 /hpf Urine Squamous Epithelial Cells 4 /hpf Urine Hyaline Casts 8 /lpf Urine Mucus FEW /lpf Microscopic Urinalysis Comment CULT NOT INDICATED White Blood Count 15.8 TH/MM3 Red Blood Count 3.95 MIL/MM3 Hemoglobin 12.7 GM/DL Hematocrit 40.2 % Mean Corpuscular Volume 101.8 FL Mean Corpuscular Hemoglobin 32.3 PG Mean Corpuscular Hemoglobin Concent 31.7 % Red Cell Distribution Width 15.7 % Platelet Count 424 TH/MM3 Mean Platelet Volume 7.1 FL Neutrophils (%) (Auto) 80.1 % Lymphocytes (%) (Auto) 15.6 % Monocytes (%) (Auto) 3.9 % Eosinophils (%) (Auto) 0.1 % Basophils (%) (Auto) 0.3 % Neutrophils # (Auto) 12.7 TH/MM3 Lymphocytes # (Auto) 2.5 TH/MM3 Monocytes # (Auto) 0.6 TH/MM3 Eosinophils # (Auto) 0.0 TH/MM3 Basophils # (Auto) 0.1 TH/MM3 CBC Comment DIFF FINAL Differential Comment Blood Urea Nitrogen 6 MG/DL Creatinine 0.71 MG/DL Random Glucose 96 MG/DL Total Protein 7.6 GM/DL Albumin 3.6 GM/DL Calcium Level 9.0 MG/DL Alkaline Phosphatase 91 U/L Aspartate Amino Transf (AST/SGOT) 26 U/L Alanine Aminotransferase (ALT/SGPT) 20 U/L Total Bilirubin 0.4 MG/DL Sodium Level 137 MEQ/L Potassium Level 3.0 MEQ/L Chloride Level 102 MEQ/L Carbon Dioxide Level 23.4 MEQ/L Anion Gap 12 MEQ/L Estimat Glomerular Filtration Rate 89 ML/MIN Total Creatine Kinase 36 U/L Troponin I LESS THAN 0.02 NG/ML Lipase 97 U/L MDM Diagnosis Primary Impression: Atypical chest pain Admitting Information Admitting Physician Requests: Observation Condition: Stable Ariane Hercules Oct 14, 2016 16:55
[2016-10-14] MEDS ORDERED: LIDOCAINE VISCOUS 2% SOLN 15 ML UDC PO ONE (17:00)
[2016-10-14] MEDS ORDERED: ALUMINUM/MAGNESIUM/SIMETH 30 ML CUP PO ONE (17:00)
[2016-10-14] MEDS ORDERED: PANTOPRAZOLE SODIUM 40 MG VIAL IV PUSH ONE (17:00)
--- NOTE | 2016-10-14 17:15 | RADRPT ---
EXAM DATE/TIME: 10/14/2016 17:06 [facility] COMPARISON: CHEST SINGLE AP, September 20, 2016, 1:29. INDICATIONS : Chest pain MEDICAL HISTORY : Crohn's disease. Abdominal hernia SURGICAL HISTORY : None. ENCOUNTER: Initial ACUITY: 4 - 6 days PAIN SCORE: 8/10 LOCATION: chest FINDINGS: The lungs are clear without infiltrate, nodule, or mass. There is no appreciable pleural effusion fo r technique. Heart and mediastinum are unremarkable. CONCLUSION: No acute cardiopulmonary disease. Meri Alfaro MD on October 14, 2016 at 17:12 Board Certified Radiologist. This report was verified electronically.
[2016-10-14] MEDS ORDERED: ASPIRIN 81 MG CHEW TAB CHEW ONE (17:30)
[2016-10-14 17:47] LABS: CREATINE KINASE 36 U/L (26-192)
[2016-10-14] MEDS ORDERED: POTASSIUM CHLORIDE 20 MEQ PWD PACKET PO ONE (18:30)
[2016-10-14] MEDS ORDERED: IOHEXOL 350 MG/ML 10 ML VIAL (for RAD DIAG) IVCONTRAST ONE (18:43)
[2016-10-14] MEDS ORDERED: MORPHINE SULFATE 4 MG/ML INJ IV PUSH ONE (18:45)
[2016-10-14] MEDS ORDERED: NITROGLYCERIN 0.4 MG SL 25 TABS/BTL SL PRN (18:45)
[2016-10-14] MEDS ORDERED: ONDANSETRON HCL 4 MG/2 ML VIAL IV PUSH ONE (18:45)
[2016-10-14] MEDS ORDERED: ONDANSETRON HCL 4 MG/2 ML VIAL IV PRN (18:45)
[2016-10-14] MEDS ORDERED: SODIUM CHLORIDE 0.9% FLUSH 10 ML FLUSH IV FLUSH PRN (18:45)
[2016-10-14] MEDS: SODIUM CHLORIDE 0.9% FLUSH 10 ML FLUSH IV FLUSH SCH (19:08)
[2016-10-14 20:08] LABS: CREATINE KINASE 25 U/L (26-192)
--- NOTE | 2016-10-14 20:55 | PD ---
HPI Chief Complaint: GI Complaint Time Seen by Provider: 16:20 Travel History International Travel<30 days: No Contact w/Intl Traveler<30days: No Traveled to known affect area: No History of Present Illness HPI 45 year old female of gastritis, hiatal hernia, anxiety presents to the ED for evaluation of epigastric pain with nausea and vomiting. Pt reports symptoms began 4 days ago and have waxed and waned for the last four days. She became concerned today when the pain moved more substernal. Pain is intermittent with waves of nausea. She denies any hematemesis or hematochezia. No diarrhea. No fever or chills. No other symptoms to report. Pt does smoke tobacco cigarettes. She states her son has Crohns and she has been told she does too, but "this is different and she is scared." PFSH Past Medical History Hx Anticoagulant Therapy: No Asthma: No Blood Disorders: No Anxiety: Yes Depression: Yes Heart Rhythm Problems: No Cancer: No Cardiac Catheterization: No Cardiovascular Problems: No High Cholesterol: Yes Chemotherapy: No Congestive Heart Failure: No COPD: No Cerebrovascular Accident: No Diabetes: No Diminished Hearing: No Endocrine: No Gastrointestinal Disorders: Yes (GASTRITIS) Genitourinary: No Headaches: Yes Hiatal Hernia: Yes Hypertension: No Immune Disorder: No Musculoskeletal: No Neurologic: No Psychiatric: Yes (life becoming stressful) Reproductive: No (mesus Q 4-6 mos) Respiratory: No Thyroid Disease: Yes Ulcer: Yes ?: Not LMP: 6 months ago Menopausal: Yes : 4 Para: 4 Tubal Ligation: Yes (2009) Past Surgical History Coronary Artery Bypass Graft: No Hysterectomy: No Mastectomy: Yes (LT LUMPECTOMY NON-CANCER) Oral Surgery: Yes (FX MANDIBLE REPAIR) Other Surgery: Yes (lump out of breast) Family History Family Myocardial Infarction: Yes (FATHER AND GRANDFATHER HAD GARCIA'S.) Social History Alcohol Use: No (none in 7 years) Tobacco Use: Yes (one pack) Substance Use: No Allergies-Medications (Allergen,Severity, Reaction): Coded Allergies: No Known Allergies (Verified , 10/14/16) Reported Meds & Prescriptions Reported Meds & Active Scripts Active Prednisone 20 Mg Tab 20 Mg PO BID Reported Ranitidine (Ranitidine HCl) 300 Mg Tab 300 Mg PO HS Sucralfate 1 Gm Tab 1 Gm PO TIDACHS on empty stomach Pantoprazole (Pantoprazole Sodium) 40 Mg Tab 40 Mg PO DAILY Alprazolam 0.5 Mg Tab 0.5 Mg PO TID PRN Review of Systems Except as stated in HPI: all other systems reviewed are Neg Physical Exam Narrative GENERAL: Well nourished female patient, holding her chest, appears uncomfortable SKIN: Warm and dry. HEAD: Atraumatic. Normocephalic. EYES: Pupils equal and round. No scleral icterus. No injection or drainage. ENT: No nasal bleeding or discharge. Mucous membranes pink and moist. NECK: Trachea midline. No JVD. CARDIOVASCULAR: Regular rate and rhythm. RESPIRATORY: No accessory muscle use. Clear to auscultation. Breath sounds equal bilaterally. GASTROINTESTINAL: Abdomen soft, non-tender, nondistended. MUSCULOSKELETAL: Extremities without clubbing, cyanosis, or edema. No obvious deformities. NEUROLOGICAL: Awake and alert. No obvious cranial nerve deficits. Motor grossly within normal limits. Five out of 5 muscle strength in the arms and legs. Normal speech. Data Data Last Documented VS Vital Signs Date Time Temp Pulse Resp B/P (MAP) Pulse Ox O2 Delivery O2 Flow Rate FiO2 10/14/16 18:04 88 19 151/86 (107) 100 Room Air 10/14/16 14:30 98.0 Orders Orders Complete Blood Count With Diff (10/14/16 14:47) Comprehensive Metabolic Panel (10/14/16 14:47) Urinalysis - C+S If Indicated (10/14/16 14:47) Ed Urine Pregnancytest Poc (10/14/16 14:47) Iv Access Insert/Monitor (10/14/16 14:47) Oxygen Administration (10/14/16 14:47) Oximetry (10/14/16 14:47) Lipase (10/14/16 14:47) Electrocardiogram (10/14/16 16:53) Ckmb (Isoenzyme) Profile (10/14/16 16:53) Troponin I (10/14/16 16:53) Chest, Single Ap (10/14/16 16:53) Sodium Chlor 0.9% 1000 Ml Inj (Ns 1000 M (10/14/16 16:53) Al-Mag Hy-Si 40-40-4 Mg/Ml Liq (Mag-Al P (10/14/16 17:00) Lidocaine 2% Viscous (Xylocaine 2% Visco (10/14/16 17:00) Pantoprazole Inj (Protonix Inj) (10/14/16 17:00) Aspirin Chew (Aspirin Chew) (10/14/16 17:30) Potassium Chloride Powder (Kcl Powder) (10/14/16 18:30) Morphine Inj (Morphine Inj) (10/14/16 18:45) Ondansetron Inj (Zofran Inj) (10/14/16 18:45) Admit Order (Ed Use Only) (10/14/16 18:39) Activity Bed Rest With Brp (10/14/16 18:40) Vital Signs (Adult) Q4H (10/14/16 18:40) Cardiac Rhythm .As Directed (10/14/16 18:40) Notify Dr: Other .PRN (10/14/16 18:40) Notify Parameters (10/14/16 18:40) Resp Oxygen Nasal Cannula (10/14/16 ) Diet Npo (10/15/16 Breakfast) Diet Heart Healthy (10/14/16 Dinner) Ckmb (Isoenzyme) Profile (10/14/16 18:40) Ckmb (Isoenzyme) Profile (10/14/16 21:40) Troponin I (10/14/16 18:40) Troponin I (10/14/16 21:40) Electrocardiogram (10/14/16 20:30) Electrocardiogram (10/14/16 23:30) ^ Obtain (10/14/16 18:40) Sodium Chloride 0.9% Flush (Ns Flush) (10/14/16 18:45) Sodium Chloride 0.9% Flush (Ns Flush) (10/14/16 21:00) Acetaminophen (Tylenol) (10/14/16 18:45) Ondansetron Inj (Zofran Inj) (10/14/16 18:45) Nitroglycerin Sl (Nitrostat Sl) (10/14/16 18:45) [employer] Certified Network Professional / Telemetry BART.Q8H (10/14/16 18:40) Wilian Bilateral/Knee High BART.QSHIFT (10/14/16 18:40) Labs Laboratory Tests Test 10/14/16 15:20 10/14/16 15:25 Urine Color YELLOW Urine Turbidity CLEAR Urine pH 6.0 Urine Specific [place] 1.028 Urine Protein TRACE mg/dL Urine Glucose (UA) NEG mg/dL Urine Ketones NEG mg/dL Urine Occult Blood TRACE Urine Nitrite NEG Urine Bilirubin NEG Urine Urobilinogen 2.0 MG/DL Urine Leukocyte Esterase NEG Urine RBC 1 /hpf Urine WBC 1 /hpf Urine Squamous Epithelial Cells 4 /hpf Urine Hyaline Casts 8 /lpf Urine Mucus FEW /lpf Microscopic Urinalysis Comment CULT NOT INDICATED White Blood Count 15.8 TH/MM3 Red Blood Count 3.95 MIL/MM3 Hemoglobin 12.7 GM/DL Hematocrit 40.2 % Mean Corpuscular Volume 101.8 FL Mean Corpuscular Hemoglobin 32.3 PG Mean Corpuscular Hemoglobin Concent 31.7 % Red Cell Distribution Width 15.7 % Platelet Count 424 TH/MM3 Mean Platelet Volume 7.1 FL Neutrophils (%) (Auto) 80.1 % Lymphocytes (%) (Auto) 15.6 % Monocytes (%) (Auto) 3.9 % Eosinophils (%) (Auto) 0.1 % Basophils (%) (Auto) 0.3 % Neutrophils # (Auto) 12.7 TH/MM3 Lymphocytes # (Auto) 2.5 TH/MM3 Monocytes # (Auto) 0.6 TH/MM3 Eosinophils # (Auto) 0.0 TH/MM3 Basophils # (Auto) 0.1 TH/MM3 CBC Comment DIFF FINAL Differential Comment Blood Urea Nitrogen 6 MG/DL Creatinine 0.71 MG/DL Random Glucose 96 MG/DL Total Protein 7.6 GM/DL Albumin 3.6 GM/DL Calcium Level 9.0 MG/DL Alkaline Phosphatase 91 U/L Aspartate Amino Transf (AST/SGOT) 26 U/L Alanine Aminotransferase (ALT/SGPT) 20 U/L Total Bilirubin 0.4 MG/DL Sodium Level 137 MEQ/L Potassium Level 3.0 MEQ/L Chloride Level 102 MEQ/L Carbon Dioxide Level 23.4 MEQ/L Anion Gap 12 MEQ/L Estimat Glomerular Filtration Rate 89 ML/MIN Total Creatine Kinase 36 U/L Troponin I LESS THAN 0.02 NG/ML Lipase 97 U/L [facility] Medical Decision Making Medical Screen Exam Complete: Yes Emergency Medical Condition: Yes Medical Record Reviewed: Yes Differential Diagnosis gastritis versus cholecystitis versus pancreatitis versus GERD versus atypical chest pain Narrative Course 45 year old female presents to the ED for evaluation . Pt has essentially a negative abdominal work up . She has been given GI cocktail and protonix with no relief of her symptoms. She reports this as being "different" and this rises concern for possible cardiac etiology. Pt did have a stress test in 2012 for chest pain. She continues to smoke tobacco cigarettes. Troponin is <0.02 and EKG is without acute concern, however, after discussion with my attending physician, Dr. Chen, we feel the patient will benefit from serial cardiac enzymes and chest pain center admission for observation. Plan is discussed with patient. She is in agreement with this plan of care. Diagnosis Primary Impression: Atypical chest pain Admitting Information Admitting Physician Requests: Observation Condition: Stable Ariane Hercules Oct 14, 2016 20:55
[2016-10-14 22:39] LABS: CREATINE KINASE 25 U/L (26-192)
[2016-10-14] MEDS: ACETAMINOPHEN 500 MG CPLT PO PRN (23:27)
[2016-10-15] VITALS (10 sets, daily range): BP systolic 114–126; BP diastolic 56–74; PULSE 73–88; RESP 15–18; TEMP 96.9–98.4; O2SAT 94–99
[2016-10-15] MEDS ORDERED: MORPHINE SULFATE 4 MG/ML INJ IV ONE (04:00)
[2016-10-15] MEDS: ACETAMINOPHEN 500 MG CPLT PO PRN ×4 (05:27→21:03)
--- NOTE | 2016-10-15 07:25 | HHI.HP ---
HPI Primary Care Physician Felice Lin M.D. Chief Complaint Abdominal pain History of Present Illness 45-year-old female history of ulcerative colitis, hiatal hernia, and 2 gastric ulcers presents to emergency room for further evaluation of abdominal pain. Onset Tuesday. Location epigastric and right upper quadrant described as consistent achy tenderness. Tuesday nausea all day, Tuesday vomited clear most of day. Tuesday reports "dry heaving all day associated with esophageal burning." Constipation since Tuesday followed by x3 loose stools on . Nausea and vomiting now resolved. Continues to complain of abdominal discomfort. Denies hematemesis, bloody stools, or melena. Follows with a GI specialist in [place] and scheduled for follow up appointment . Denies any chest pain or discomfort, pointing to epigastric, gastric, and RUQ area pain. Review of Systems General: Decrease appetite since Tuesday. Reports fatigue and weakness from continued abdominal discomfort. No fever or chills. HEENT: No GARCIA CV: No CP, pressure, or discomfort RESP: No SOB, cough, or sputum production GI: As stated above. Nausea and vomiting as resolved. Loose stool yesterday, no bowel movement today. Tenderness in RUQ and epigastric area. No distention, melena, or blood in the stool. : No dysuria, urgency, frequency EXT: No lower leg edema, no paraesthesias MS: No discomfort or change in ROM NEURO: No difficulty with balance, LOC, motor/sensory deficits PSYCH: No anxiety, depression. SKIN: No rashes, no concerning lesions Past Family Social History Allergies: Coded Allergies: No Known Allergies (Verified , 10/14/16) Past Medical History Gastric ulcers, Ulcerative colitis, hiatal hernia Past Surgical History Left lumpectomy Reported Medications Active Ranitidine (Ranitidine HCl) 300 Mg Tab 300 Mg PO HS Sucralfate 1 Gm Tab 1 Gm PO TIDACHS on empty stomach Pantoprazole (Pantoprazole Sodium) 40 Mg Tab 40 Mg PO DAILY Alprazolam 0.5 Mg Tab 0.5 Mg PO TID PRN Active Ordered Medications Current Medications Medications (Trade) Dose Ordered Sig/Bao Route Start Time Stop Time Status Last Admin (NS Flush) 2 ml UNSCH PRN IV FLUSH 10/14/16 18:45 (NS Flush) 2 ml BID IV FLUSH 10/14/16 21:00 10/14/16 19:08 (Tylenol) 500 mg Q4H PRN PO 10/14/16 18:45 10/15/16 05:27 (Zofran Inj) 4 mg Q6H PRN IV 10/14/16 18:45 (Nitrostat Sl) 0.4 mg Q5M PRN SL 10/14/16 18:45 Family History Father x3 SD beginning age 52. Social History No known diabetes, hypertension, or hyperlipidemia. Smokes 1pack/day. Denies any alcohol or illegal drug use. Past Cardiac Testing 12/14/12 Lexiscan-Unremarkable, EF 64% Physical Exam Vital Signs Vital Signs Date Time Temp Pulse Resp B/P (MAP) Pulse Ox O2 Delivery O2 Flow Rate FiO2 10/15/16 06:27 17 10/15/16 04:08 14 10/15/16 03:30 98.0 73 18 126/68 (87) 94 10/15/16 00:51 97.6 76 18 120/56 (77) 99 10/14/16 23:04 74 10/14/16 20:51 98.2 83 16 113/68 (83) 97 10/14/16 19:30 98 10/14/16 19:08 91 18 151/76 (101) 98 Room Air 10/14/16 18:04 88 19 151/86 (107) 100 Room Air 10/14/16 16:23 18 10/14/16 16:23 89 18 138/87 (104) 100 Room Air 10/14/16 16:23 100 Room Air 10/14/16 16:23 89 18 138/87 (104) 100 Room Air 10/14/16 14:30 98.0 84 16 146/84 (104) 99 Physical Exam GENERAL: Alert WN, WD, NAD, pleasant, female who appears older than stated age. HEAD: NC, AT CV: RRR, without murmur, rub, gallop, no JVD, S1-S2 no S3-S4. RESP: Clear lungs throughout bilateral, no crackles, wheeze, rhonchi, symmetrical chest rise, nonlabored, able to speak in full sentences ABD: Tender with palpation to RUQ, epigastric, and midabdominal area. Soft, ND, no masses, positive bowel tones. EXT: Pulses +24, no dependent edema MS: Normal tone 4 extremities, nontender, no obvious deformities, full range of motion NEURO: CN II through CN XII grossly intact, motor strength 5/5 PSYCH: A+O 3, pleasant affect, appropriate speech, appropriate mood and affect , insight and judgment SKIN: Normal turgor, normal texture, no lesions, no rashes, even hair distribution, multiple small healed areas on bilateral legs Laboratory Laboratory Tests Test 10/14/16 15:20 10/14/16 15:25 10/14/16 19:20 10/14/16 21:30 Urine Color YELLOW Urine Turbidity CLEAR Urine pH 6.0 Urine Specific [place] 1.028 Urine Protein TRACE Urine Glucose (UA) NEG Urine Ketones NEG Urine Occult Blood TRACE Urine Nitrite NEG Urine Bilirubin NEG Urine Urobilinogen 2.0 Urine Leukocyte Esterase NEG Urine RBC 1 Urine WBC 1 Urine Squamous Epithelial Cells 4 Urine Hyaline Casts 8 Urine Mucus FEW Microscopic Urinalysis Comment CULT NOT INDICATED White Blood Count 15.8 Red Blood Count 3.95 Hemoglobin 12.7 Hematocrit 40.2 Mean Corpuscular Volume 101.8 Mean Corpuscular Hemoglobin 32.3 Mean Corpuscular Hemoglobin Concent 31.7 Red Cell Distribution Width 15.7 Platelet Count 424 Mean Platelet Volume 7.1 Neutrophils (%) (Auto) 80.1 Lymphocytes (%) (Auto) 15.6 Monocytes (%) (Auto) 3.9 Eosinophils (%) (Auto) 0.1 Basophils (%) (Auto) 0.3 Neutrophils # (Auto) 12.7 Lymphocytes # (Auto) 2.5 Monocytes # (Auto) 0.6 Eosinophils # (Auto) 0.0 Basophils # (Auto) 0.1 CBC Comment DIFF FINAL Differential Comment Blood Urea Nitrogen 6 Creatinine 0.71 Random Glucose 96 Total Protein 7.6 Albumin 3.6 Calcium Level 9.0 Alkaline Phosphatase 91 Aspartate Amino Transf (AST/SGOT) 26 Alanine Aminotransferase (ALT/SGPT) 20 Total Bilirubin 0.4 Sodium Level 137 Potassium Level 3.0 Chloride Level 102 Carbon Dioxide Level 23.4 Anion Gap 12 Estimat Glomerular Filtration Rate 89 Total Creatine Kinase 36 25 25 Troponin I LESS THAN 0.02 LESS THAN 0.02 LESS THAN 0.02 Lipase 97 Result Diagram: 10/14/16 1525 10/14/16 1525 Imaging Last Impressions Chest X-Ray 10/14/16 1653 Signed Impressions: Service Date/Time: September 17:06 - CONCLUSION: No acute cardiopulmonary disease. Meri Alfaro MD Course EKG Normal sinus rhythm, normal axis, no ST or T-segment changes Caprini VTE Risk Assessment Caprini VTE Risk Assessment: No/Low Risk (score <= 1) Caprini Risk Assessment Model Point Value = 1 Point Value = 2 Point Value = 3 Point Value = 5 Age 41-60 Minor surgery BMI > 25 kg/m2 Swollen legs Varicose veins or History of unexplained or recurrent spontaneous Oral contraceptives or hormone replacement Sepsis (< 1 month) Serious lung disease, including pneumonia (< 1 month) Abnormal pulmonary function Acute myocardial infarction Congestive heart failure (< 1 month) History of inflammatory bowel disease Medical patient at bed rest Age 61-74 Arthroscopic surgery Major open surgery (> 45 min) Laparoscopic surgery (> 45 min) Malignancy Confined to bed (> 72 hours) Immobilizing plaster cast Central venous access Age >= 75 History of VTE Family history of VTE Factor V Leiden Prothrombin [id number] Lupus anticoagulant Anticardiolipin antibodies Elevated serum homocysteine Heparin-induced thrombocytopenia Other congenital or acquired thrombophilia Stroke (< 1 month) Elective arthroplasty Hip, pelvis, or leg fracture Acute spinal cord injury (< 1 month) Prophylaxis Regimen Total Risk Factor Score Risk Level Prophylaxis Regimen 0-1 Low Early ambulation 2 Moderate Order ONE of the following: *Sequential Compression Device (SCD) *Heparin 5000 units SQ BID 3-4 Higher Order ONE of the following medications: *Heparin 5000 units SQ TID *Enoxaparin/Lovenox 40 mg SQ daily (WT < 150 kg, CrCl > 30 mL/min) *Enoxaparin/Lovenox 30 mg SQ daily (WT < 150 kg, CrCl > 10-29 mL/min) *Enoxaparin/Lovenox 30 mg SQ BID (WT < 150 kg, CrCl > 30 mL/min) AND/OR *Sequential Compression Device (SCD) 5 or more Highest Order ONE of the following medications: *Heparin 5000 units SQ TID (Preferred with Epidurals) *Enoxaparin/Lovenox 40 mg SQ daily (WT < 150 kg, CrCl > 30 mL/min) *Enoxaparin/Lovenox 30 mg SQ daily (WT < 150 kg, CrCl > 10-29 mL/min) *Enoxaparin/Lovenox 30 mg SQ BID (WT < 150 kg, CrCl > 30 mL/min) AND *Sequential Compression Device (SCD) Assessment and Plan Assessment and Plan #1 Atypical chest pain-admitted to chest pain center. Ruled out with 3 sets of EKGs, cardiac enzymes, and monitored overnight. Seen and evaluated by Dr. Abundio Waters. No further cardiac testing required. No chest discomfort pointing to epigastric, mid abdominal, and right upper quadrant area. #2 Abdominal pain-continue Protonix, Carafate, and ranitidine. Consult GI for further recommendation. #3 Hypokalemia-40 mEq KCl provided in ER, repeat potassium level #4 Tobacco use-strongly encouraged and stressed the importance of tobacco sensation. Encouraged her to quit smoking. Jennifer Faye Oct 15, 2016 07:25
[2016-10-15] MEDS: SODIUM CHLORIDE 0.9% FLUSH 10 ML FLUSH IV FLUSH SCH ×2 (08:12→20:23)
[2016-10-15] MEDS ORDERED: PANTOPRAZOLE SOD 40 MG DELAYED RELEASE TAB PO SCH (09:30)
[2016-10-15] MEDS ORDERED: MORPHINE SULFATE 4 MG/ML INJ IV PUSH ONE (10:00)
[2016-10-15] MEDS ORDERED: FAMOTIDINE 20 MG TAB PO SCH (10:45)
--- NOTE | 2016-10-15 11:09 | PD.CONS ---
HPI History of Present Illness This is a 45 year old female with a history of Crohn's disease and ulcers. She was hospitalized in August of this year for nausea, vomiting, diarrhea, with abdominal pain. She was evaluated with EGD/Colonoscopy (09/01/16)-----> the esophagus was normal, in the stomacha biopsy was taken for gastritis, in the duodenum there were two ulcers, one in the duodenal bulb and the other one in a distal bulb. There was no visible vessel, no bleeding. In the terminal ileum there were a few ulcers consistent with Crohn's disease, biopsy was obtained, In the cecum and ascending colon there was colitis. Biopsy was obtained there. The rest of the colon was involved with mild diffuse colitis. Antral mucosa with regenerative epithelial changes and mild active chronic gastritis. A ching stain is negative for helicobacter; acutely and chronically inflamed granulation tissue with attached acute inflammatory exudate, consistent with acute ulceration, ascending colon biopsy with acute colitis. She was treated with a steroid taper and Protonix 40mg po BID. The patient reports that her symptoms did improve while on the steroids, but that still had some intermittent discomfort. She saw a GI doctor in [place] (? Dr. Roman) 2 weeks after her discharge, but that he did not have any of her records and therefore scheduled a follow up appointment for for another appointment after he could review her records. She reports that she completed the Steroids about 2 weeks ago. She is taking Protonix 40mg po once daily, Sucrafate 1 gram po TID, Zantac at night. She reports that she felt really good last week, but she started having nausea, abdominal pain with mid abdominal cramping on Tuesday. She states usually her pain is intermittent, but it has been a constant dull ache since Tuesday. It is aggravated by movement, coughing, deep breathing. She also has mild abdominal cramping in her epigastric area, that is aggravated by po intake. On Tuesday, she started having nausea and vomiting consisting of bilious material. Yesterday, her nausea and vomiting improved, but she started having diarrhea with 3 loose stools- no blood or mucous. She came to the ER for further evaluation. She is still having abdominal pain, but states she has not had a bowel movement today. Of note, her son and maternal grandmother has/had Crohn's disease. (Erica Mota) PFSH Past Medical History Crohn's disease Duodenal ulcers Gastritis Past Surgical History EGD/Colonoscopy Left lumpectomy Tubal ligation (Erica Mota) Coded Allergies: No Known Allergies (Verified , 10/14/16) Medications Allergies Coded Allergies Type Severity Reaction Last Updated Verified No Known Allergies 10/14/16 Yes Active Scripts Medications Dose Route/Sig Max Daily Dose Days Date Category Dose Instructions Ranitidine (Ranitidine HCl) 300 Mg Tab 300 Mg PO HS 10/14/16 Reported Prednisone 20 Mg Tab 20 Mg PO BID 09/02/16 Rx Sucralfate 1 Gm Tab 1 Gm PO TIDACHS 08/30/16 Reported on empty stomach Pantoprazole (Pantoprazole Sodium) 40 Mg Tab 40 Mg PO DAILY 08/30/16 Reported Alprazolam 0.5 Mg Tab 0.5 Mg PO TID PRN 08/30/16 Reported Family History Son and maternal grandmother has/had Crohn's disease Social History Smokes 1 PPD No ETOH No illicit drug use (Erica Mota) Review of Systems Constitutional: COMPLAINS OF: Fatigue, DENIES: Fever, Weight loss, Chills, Change in appetite Respiratory: DENIES: Cough Cardiovascular: DENIES: Chest pain Gastrointestinal: COMPLAINS OF: Abdominal pain, Diarrhea, Nausea, Vomiting, Heartburn, DENIES: Black stools, Bloody stools, Constipation, Swelling of Abdomen Musculoskeletal: DENIES: Joint pain Integumentary: DENIES: Abnormal pigmentation Hematologic/lymphatic: DENIES: Bruising Neurologic: DENIES: Headache Psychiatric: DENIES: Confusion (Erica Mota) GI Exam Vitals I&O Vital Signs Date Time Temp Pulse Resp B/P (MAP) Pulse Ox O2 Delivery O2 Flow Rate FiO2 10/15/16 08:58 98.1 79 16 114/69 (84) 96 10/15/16 07:37 84 10/15/16 06:27 17 10/15/16 04:08 14 10/15/16 03:30 98.0 73 18 126/68 (87) 94 10/15/16 00:51 97.6 76 18 120/56 (77) 99 10/14/16 23:04 74 10/14/16 20:51 98.2 83 16 113/68 (83) 97 10/14/16 19:30 98 10/14/16 19:08 91 18 151/76 (101) 98 Room Air 10/14/16 18:04 88 19 151/86 (107) 100 Room Air 10/14/16 16:23 18 10/14/16 16:23 89 18 138/87 (104) 100 Room Air 10/14/16 16:23 100 Room Air 10/14/16 16:23 89 18 138/87 (104) 100 Room Air 10/14/16 14:30 98.0 84 16 146/84 (104) 99 I/O 10/14/16 10/14/16 10/14/16 10/15/16 10/15/16 10/15/16 07:00 15:00 23:00 07:00 15:00 23:00 Intake Total 1000 ml Balance 1000 ml Intake IV Total 1000 ml # Voids 3 Imaging Last Impressions Chest X-Ray 10/14/16 2873 Signed Impressions: Service Date/Time: September 17:06 - CONCLUSION: No acute cardiopulmonary disease. Meri Alfaro MD Laboratory Test 10/14/16 15:20 10/14/16 15:25 10/14/16 19:20 10/14/16 21:30 Urine Color YELLOW Urine Turbidity CLEAR Urine pH 6.0 Urine Specific Edwards 1.028 Urine Protein TRACE mg/dL Urine Glucose (UA) NEG mg/dL Urine Ketones NEG mg/dL Urine Occult Blood TRACE Urine Nitrite NEG Urine Bilirubin NEG Urine Urobilinogen 2.0 MG/DL Urine Leukocyte Esterase NEG Urine RBC 1 /hpf Urine WBC 1 /hpf Urine Squamous Epithelial Cells 4 /hpf Urine Hyaline Casts 8 /lpf Urine Mucus FEW /lpf Microscopic Urinalysis Comment CULT NOT INDICATED White Blood Count 15.8 TH/MM3 Red Blood Count 3.95 MIL/MM3 Hemoglobin 12.7 GM/DL Hematocrit 40.2 % Mean Corpuscular Volume 101.8 FL Mean Corpuscular Hemoglobin 32.3 PG Mean Corpuscular Hemoglobin Concent 31.7 % Red Cell Distribution Width 15.7 % Platelet Count 424 TH/MM3 Mean Platelet Volume 7.1 FL Neutrophils (%) (Auto) 80.1 % Lymphocytes (%) (Auto) 15.6 % Monocytes (%) (Auto) 3.9 % Eosinophils (%) (Auto) 0.1 % Basophils (%) (Auto) 0.3 % Neutrophils # (Auto) 12.7 TH/MM3 Lymphocytes # (Auto) 2.5 TH/MM3 Monocytes # (Auto) 0.6 TH/MM3 Eosinophils # (Auto) 0.0 TH/MM3 Basophils # (Auto) 0.1 TH/MM3 CBC Comment DIFF FINAL Differential Comment Blood Urea Nitrogen 6 MG/DL Creatinine 0.71 MG/DL Random Glucose 96 MG/DL Total Protein 7.6 GM/DL Albumin 3.6 GM/DL Calcium Level 9.0 MG/DL Alkaline Phosphatase 91 U/L Aspartate Amino Transf (AST/SGOT) 26 U/L Alanine Aminotransferase (ALT/SGPT) 20 U/L Total Bilirubin 0.4 MG/DL Sodium Level 137 MEQ/L Potassium Level 3.0 MEQ/L Chloride Level 102 MEQ/L Carbon Dioxide Level 23.4 MEQ/L Anion Gap 12 MEQ/L Estimat Glomerular Filtration Rate 89 ML/MIN Total Creatine Kinase 36 U/L 25 U/L 25 U/L Troponin I LESS THAN 0.02 NG/ML LESS THAN 0.02 NG/ML LESS THAN 0.02 NG/ML Lipase 97 U/L Physical Examination HEENT: Normocephalic; atraumatic; no jaundice. CHEST: CTA CARDIAC: RRR ABDOMEN: Soft, nondistended, nontender; no hepatosplenomegaly; bowel sounds are present in all four quadrants. EXTREMITIES: No clubbing, cyanosis, or edema. SKIN: Normal; no rash; no jaundice. RETAIL SERVICE REPRESENTATIVE: No focal deficits; alert and oriented times three. (Erica Mota [facility]) Assessment and Plan Plan ASSESSMENT: - Abdominal pain with N/V/D. Recent dx of Crohn's Disease last month. EGD/ Colonoscopy (09/01/16)-----> the esophagus was normal, in the stomach biopsy was taken for gastritis, in the duodenum there were two ulcers, one in the duodenal bulb and the other one in a distal bulb. There was no visible vessel, no bleeding. In the terminal ileum there were a few ulcers consistent with Crohn's disease, biopsy was obtained, In the cecum and ascending colon there was colitis. Biopsy was obtained there. The rest of the colon was involved with mild diffuse colitis. Antral mucosa with regenerative epithelial changes and mild active chronic gastritis. A ching stain is negative for helicobacter; acutely and chronically inflamed granulation tissue with attached acute inflammatory exudate, consistent with acute ulceration, ascending colon biopsy with acute colitis. Leukocytosis. 15.8. Will get CT scan abdomen and pelvis with IV/PO contrast. Start Solumedrol 40mg IV daily, Pentasa 1000mg qid. Stool studies. Further recommendations to follow based on results of above. Suspect crohn's exacerbation. - Leukocytosis. WBC 15.8. Get CT, likely inflammatory. Will also get stool studies. - Recent hx of duodenal ulcers, gastritis. D/C Pepcid. Increase Protonix 40mg po BID. PLAN: - Clear liquids - CT Scan abdomen and pelvis IV/PO contrast - Stool for CDiff, O&P, Giardia, C/S - Solumedrol 40mg IV daily - Pentasa 1000mg po QID - D/C Pepcid - Increase Protonix 40mg po BID - Cont. Carafate - CBC in am - Supportive care - Further recommendations to follow based on results of above - Pt seen and examined by Dr. Aguilera and myself and this note is written on his behalf (Erica Mota) Physician Comments Seen and examined, plan as above, will follow up with you. (Julio Cesar Aguilera MD) Erica Mota Oct 15, 2016 11:09 Julio Cesar Aguilera MD Oct 15, 2016 15:57
--- NOTE | 2016-10-15 11:47 | EKG ---
Date Performed: 10/14/2016 Time Performed: 21:43:43 PTAGE: 45 years EKG: Sinus rhythm NORMAL ECG Compared to prior tracing no significant change PREVIOUS TRACING : 10/14/2016 19.29 DOCTOR: Phuc Metz Interpretating Date/Time 10/15/2016 11:43:16
--- NOTE | 2016-10-15 11:47 | EKG ---
Date Performed: 10/14/2016 Time Performed: 17:27:01 PTAGE: 45 years EKG: Sinus rhythm NORMAL ECG Compared to prior tracing no significant change PREVIOUS TRACING : 06/15/2015 23.23 DOCTOR: Phuc Metz Interpretating Date/Time 10/15/2016 11:43:35
--- NOTE | 2016-10-15 11:47 | EKG ---
Date Performed: 10/14/2016 Time Performed: 19:29:30 PTAGE: 45 years EKG: Sinus rhythm NORMAL ECG Compared to prior tracing no significant change PREVIOUS TRACING : 10/14/2016 17.27 DOCTOR: Phuc Metz Interpretating Date/Time 10/15/2016 11:43:25
[2016-10-15] MEDS ORDERED: DIATRIZOATE MEGLUM/DIATRIZOATE SOD 9 ML CUP PO ONE ×2 (12:00→12:45)
[2016-10-15] MEDS: SUCRALFATE 1 GM TAB PO SCH ×2 (12:47→20:20)
[2016-10-15] MEDS: methylPREDNISolone SOD SUCC 40 MG/1 ML VIAL IV PUSH SCH (12:47)
[2016-10-15] MEDS: MESALAMINE 250 MG CAP PO SCH ×3 (12:48→20:21)
[2016-10-15] MEDS ORDERED: POTASSIUM CHLORIDE 20 MEQ CONTROLLED RELEASE TAB PO ONE (14:00)
[2016-10-15] MEDS: MORPHINE SULFATE 4 MG/ML INJ IV PUSH PRN ×2 (16:55→22:23)
--- NOTE | 2016-10-15 17:47 | RADRPT ---
EXAM DATE/TIME: 10/15/2016 15:35 [facility] COMPARISON: CT ABDOMEN & PELVIS W CONTRAST, September 20, 2016, 2:59. INDICATIONS : Epigastric pain. IV CONTRAST: 97 cc Omnipaque 350 (iohexol) IV ORAL CONTRAST: No oral contrast ingested. RADIATION DOSE: 7.20 CTDIvol (mGy) MEDICAL HISTORY : Crohn's disease. SURGICAL HISTORY : Tubal ligation. ENCOUNTER: Initial ACUITY: 3 days PAIN SCALE: 5/10 LOCATION: Bilateral upper quadrant TECHNIQUE: Volumetric scanning of the abdomen and pelvis was performed. Using automated exposure control and ad justment of the mA and/or kV according to patient size, radiation dose was kept as low as reasonably achievable to obtain optimal diagnostic quality images. DICOM format image data is available electro nically for review and comparison. FINDINGS: LOWER LUNGS: The visualized lower lungs are clear. LIVER: Homogeneous density without lesion. There is no dilation of the biliary tree. No calcified gallston es. SPLEEN: Normal size without lesion. PANCREAS: Within normal limits. KIDNEYS: Normal in size and shape. There is no mass, stone or hydronephrosis. ADRENAL GLANDS: Within normal limits. VASCULAR: There is no aortic aneurysm. There is moderate atherosclerotic disease. BOWEL/MESENTERY: The stomach, small bowel, and colon demonstrate no acute abnormality. There is no free intraperitone al air or fluid. Terminal ileum and appendix demonstrate no acute abnormality. ABDOMINAL WALL: Within normal limits. RETROPERITONEUM: There is no lymphadenopathy. BLADDER: No wall thickening or mass. REPRODUCTIVE: Within normal limits. INGUINAL: There is no lymphadenopathy or hernia. MUSCULOSKELETAL: No acute abnormality. CONCLUSION: No acute abnormality is identified within the abdomen or pelvis to explain epigastric pain. Felice Malone MD on October 15, 2016 at 17:42 Board Certified Radiologist. This report was verified electronically.
[2016-10-15] MEDS: PANTOPRAZOLE SOD 40 MG DELAYED RELEASE TAB PO SCH (20:20)
[2016-10-16] VITALS (8 sets, daily range): BP systolic 117–128; BP diastolic 60–76; PULSE 68–94; RESP 17–20; TEMP 97.5–98.2; O2SAT 95–99
[2016-10-16 06:45] LABS: AUTOMATED NEUTROPHIL # 9.7 TH/MM3 (1.8-7.7); BASOPHIL # 0.1 TH/MM3 (0-0.2); BASOPHIL % 0.4 % (0.0-2.0); EOSINOPHIL % 0.2 % (0.0-4.0); HEMATOCRIT 37.8 % (35.0-46.0); HEMO FLAGS DIFF FINAL; LYMPH % 22.1 % (9.0-44.0); MEAN CELL VOLUME 101.7 FL (80.0-100.0); MEAN CORPUSCULAR HGB CONC 31.5 % (32.0-36.0); MONO % 5.1 % (0.0-8.0); NEUT % 72.2 % (16.0-70.0); PLATELET COUNT 343 TH/MM3 (150-450); RED BLOOD COUNT 3.71 MIL/MM3 (4.00-5.30); RED CELL DISTRIBUTION WIDTH 16.2 % (11.6-17.2); WHITE BLOOD COUNT 13.4 TH/MM3 (4.0-11.0)
[2016-10-16] MEDS: ACETAMINOPHEN 500 MG CPLT PO PRN (08:10)
[2016-10-16] MEDS: SUCRALFATE 1 GM TAB PO SCH ×2 (08:10→14:29)
[2016-10-16] MEDS: MESALAMINE 250 MG CAP PO SCH ×3 (09:24→18:13)
[2016-10-16] MEDS: PANTOPRAZOLE SOD 40 MG DELAYED RELEASE TAB PO SCH (09:24)
[2016-10-16] MEDS: methylPREDNISolone SOD SUCC 40 MG/1 ML VIAL IV PUSH SCH (09:25)
[2016-10-16] MEDS: SODIUM CHLORIDE 0.9% FLUSH 10 ML FLUSH IV FLUSH SCH (09:25)
[2016-10-16] MEDS: MORPHINE SULFATE 4 MG/ML INJ IV PUSH PRN ×2 (09:55→14:16)
[2016-10-16] MEDS ORDERED: POTASSIUM CHLORIDE 20 MEQ CONTROLLED RELEASE TAB PO ONE (11:30)
--- NOTE | 2016-10-16 15:01 | PD.CARD.PN ---
Subjective Subjective Remarks Abdominal pain improving. Tolerating clear liquids. Reports being hungry. No bowel movement since last evening. Objective Vital Signs / I&O Vital Signs Date Time Temp Pulse Resp B/P (MAP) Pulse Ox O2 Delivery O2 Flow Rate FiO2 10/16/16 12:00 97.9 77 18 117/60 (79) 95 10/16/16 08:50 97.6 92 20 119/76 (90) 96 10/16/16 03:24 98.2 76 17 128/74 (92) 99 10/16/16 00:21 97.5 80 17 121/61 (81) 96 10/15/16 23:00 79 10/15/16 22:29 17 10/15/16 22:07 15 10/15/16 20:37 96.9 78 15 120/74 (89) 95 10/15/16 20:04 96 10/15/16 15:52 98.4 88 18 116/71 (86) 97 I/O 10/15/16 10/15/16 10/15/16 10/16/16 10/16/16 10/16/16 07:00 15:00 23:00 07:00 15:00 23:00 # Voids 3 5 Physical Exam GENERAL: Alert, no acute distress CV: RRR RESP: Clear lungs throughout bilateral, symmetrical chest rise, nonlabored, able to speak in full sentences ABD: Soft, ND, no masses, positive bowel tones PSYCH: A+O 3, appropriate mood and affect, insight and judgment Laboratory Laboratory Tests Test 10/16/16 06:06 10/16/16 10:12 White Blood Count 13.4 TH/MM3 Red Blood Count 3.71 MIL/MM3 Hemoglobin 11.9 GM/DL Hematocrit 37.8 % Mean Corpuscular Volume 101.7 FL Mean Corpuscular Hemoglobin 32.0 PG Mean Corpuscular Hemoglobin Concent 31.5 % Red Cell Distribution Width 16.2 % Platelet Count 343 TH/MM3 Mean Platelet Volume 7.0 FL Neutrophils (%) (Auto) 72.2 % Lymphocytes (%) (Auto) 22.1 % Monocytes (%) (Auto) 5.1 % Eosinophils (%) (Auto) 0.2 % Basophils (%) (Auto) 0.4 % Neutrophils # (Auto) 9.7 TH/MM3 Lymphocytes # (Auto) 3.0 TH/MM3 Monocytes # (Auto) 0.7 TH/MM3 Eosinophils # (Auto) 0.0 TH/MM3 Basophils # (Auto) 0.1 TH/MM3 CBC Comment DIFF FINAL Differential Comment Potassium Level 2.9 MEQ/L Imaging Last Impressions Abdomen/Pelvis CT 10/15/16 0000 Signed Impressions: Service Date/Time: Saturday, October 15, 2016 15:35 - CONCLUSION: No acute abnormality is identified within the abdomen or pelvis to explain epigastric pain. Felice Malone MD Chest X-Ray 10/14/16 1653 Signed Impressions: Service Date/Time: September 17:06 - CONCLUSION: No acute cardiopulmonary disease. Meri Alfaro MD Assessment and Plan Assessment and Plan #1 Atypical chest pain-admitted to chest pain center. Kept on Dr. Waters service in [facility], possible discharge this afternoon, pending GI recommendation #2 Abdominal pain- tolerating clears, no nausea, reports abdominal discomfort improving, awaiting further recommendation from GI, appreciate GI input, advance diet as tolerated #3 Hypokalemia-Am KCL level 2.9, 40 mEq KCl ordered, repeat KCL this afternoon Jennifer Faye Oct 16, 2016 15:01
[2016-10-16 17:06] LABS: C. DIFF EPI 027 PRESUMPTIVE NEGATIVE (NEGATIVE)
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
[2016-10-16] MEDS ORDERED: PRED20 PO (18:03)
[2016-10-16] MEDS ORDERED: MESA250 PO (18:03)
== END 2016-10-16 19:30 | disposition home or self-care (01) ==
LOC: NEPC 14:27 → NEDA 18:42 → NEPFCDU 20:38
PROVIDERS: ADMIT Internal Medicine Cardiovascular Disease; ATTEND Internal Medicine Cardiovascular Disease
DX: R07.89 Other chest pain (principal); R10.9 Unspecified abdominal pain; E87.6 Hypokalemia; K59.00 Constipation, unspecified; R19.7 Diarrhea, unspecified; R53.83 Other fatigue; R53.1 Weakness; E78.00 Pure hypercholesterolemia, unspecified; E07.9 Disorder of thyroid, unspecified; K51.90 Ulcerative colitis, unspecified, without complications; K29.50 Unspecified chronic gastritis without bleeding; K50.90 Crohn's disease, unspecified, without complications; F41.9 Anxiety disorder, unspecified; F32.9 Major depressive disorder, single episode, unspecified; F17.210 Nicotine dependence, cigarettes, uncomplicated; Z79.899 Other long term (current) drug therapy
CPT/HCPCS: 71010; 74177; 80053; 81001; 82550; 83690; 84132; 84484; 84703; 85025; 87205; 87328; 87329; 87493; 93005; 96361; 96374; 96375; 96376; 99285; C9113; G0378; J2270; J2405; J2920; J7030; Q9963; Q9967; 87506

== ENCOUNTER 2017-01-16 05:03 | Emergency (ER) | payer OTHER ==
[~2017-01-16] VITALS: Ht 162.6 cm; Wt 70.0 kg
[~2017-01-16 05:03] MED LIST changes: -BUPR150XL PO; -DICY10 PO; -LEVO50TA4 PO; +MESA250 PO; -MSIR30 PO; -PROM25TA10 PO
[2017-01-16 05:08] VITALS: BP 164/88; PULSE 114; RESP 16; TEMP 98.3; O2SAT 98
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
[2017-01-16] MEDS ORDERED: DIPHTH/TETANUS/ACEL PERTUSSIS (BOOSTER) 0.5 ML VIAL/PFS IM ONE (06:15)
== END 2017-01-16 06:33 | disposition home or self-care (01) ==
LOC: NEPE 05:03
DX: S09.90XA Unspecified injury of head, initial encounter (principal); T23.001A Burn of unspecified degree of right hand, unspecified site, initial encounter; T23.002A Burn of unspecified degree of left hand, unspecified site, initial encounter; T74.11XA Adult physical abuse, confirmed, initial encounter; Y07.03 Male partner, perpetrator of maltreatment and neglect; X97.XXXA Assault by smoke, fire and flames, initial encounter; Z23 Encounter for immunization
CPT/HCPCS: 70450; 72125; 90471; 90715; 96372

== ENCOUNTER 2017-02-07 23:42 | Inpatient (IN) | payer OTHER ==
[~2017-02-07] VITALS: Ht 162.6 cm; Wt 69.3 kg
[2017-02-07 23:57] VITALS: BP 152/79; PULSE 100; RESP 22; TEMP 98.4; O2SAT 99
[2017-02-08] MEDS ORDERED: SODIUM CHLOR 0.9% 1000 ML INJ 1,000 ML IV SCH (00:29)
[2017-02-08] MEDS ORDERED: ONDANSETRON HCL 4 MG/2 ML VIAL IVP ONE (00:30)
[2017-02-08] MEDS ORDERED: MORPHINE SULFATE 8 MG/ML INJ IV PUSH ONE ×2 (00:30→02:45)
[2017-02-08] MEDS ORDERED: PANTOPRAZOLE INJ 80 MG in SODIUM CHLORIDE 0.9% INJ 100 ML IV SCH (00:30)
[2017-02-08] MEDS ORDERED: SODIUM CHLORIDE 0.9% FLUSH 10 ML FLUSH IV FLUSH PRN ×2 (00:30→03:30)
[2017-02-08] MEDS ORDERED: PANTOPRAZOLE SODIUM 40 MG VIAL IVP ONE (00:30)
[2017-02-08 01:00] VITALS: BP 122/67; PULSE 97; RESP 16; O2SAT 98
[2017-02-08 01:16] LABS: AUTOMATED NEUTROPHIL # 5.6 TH/MM3 (1.8-7.7); BASOPHIL % 0.2 % (0.0-2.0); EOSINOPHIL # 0.1 TH/MM3 (0-0.4); EOSINOPHIL % 1.7 % (0.0-4.0); HEMO FLAGS DIFF FINAL; LYMPHOCYTE # 1.9 TH/MM3 (1.0-4.8); MEAN CELL VOLUME 106.3 FL (80.0-100.0); MEAN CORPUSCULAR HEMOGLOBIN 34.7 PG (27.0-34.0); MEAN CORPUSCULAR HGB CONC 32.7 % (32.0-36.0); MONO % 10.1 % (0.0-8.0); PLATELET COUNT 338 TH/MM3 (150-450); RED BLOOD COUNT 2.36 MIL/MM3 (4.00-5.30); RED CELL DISTRIBUTION WIDTH 16.7 % (11.6-17.2); WHITE BLOOD COUNT 8.5 TH/MM3 (4.0-11.0)
--- NOTE | 2017-02-08 01:19 | PD ---
HPI Chief Complaint: Abdominal Pain Time Seen by Provider: 23:53 Travel History International Travel<30 days: No Contact w/Intl Traveler<30days: No Traveled to known affect area: No History of Present Illness HPI This is a 46 year old female history of peptic ulcer disease, Crohn's disease, previous alcoholism, presents today with points of abdominal pain with associated nausea vomiting and loose stools. The patient reports blood in her stool and vomit. Patient states that she fell off the wagon and has been drinking for the last 3 weeks. She states she drinks 12+ beers daily. She denies any chest pain, chest pressure. She does report an elevated heart rate. There is no reported fevers, chills. She denies any history of varices but does state that she was told she had a bleeding ulcer previously. PFSH Past Medical History Hx Anticoagulant Therapy: No Asthma: No Blood Disorders: No Anxiety: Yes Depression: Yes Heart Rhythm Problems: No Cancer: No Cardiac Catheterization: No Cardiovascular Problems: No High Cholesterol: Yes Chemotherapy: No Congestive Heart Failure: No COPD: No Cerebrovascular Accident: No Diabetes: No Diminished Hearing: No Endocrine: No Gastrointestinal Disorders: Yes (GASTRITIS) Genitourinary: No Headaches: Yes Hiatal Hernia: Yes Hypertension: No Immune Disorder: No Musculoskeletal: No Neurologic: No Psychiatric: Yes (life becoming stressful) Reproductive: No (mesus Q 4-6 mos) Respiratory: No Thyroid Disease: Yes (HYPO) Ulcer: Yes Influenza Vaccination: No ?: Not Menopausal: Yes : 4 Para: 4 Tubal Ligation: Yes (2009) Past Surgical History Coronary Artery Bypass Graft: No Hysterectomy: No Mastectomy: Yes (LT LUMPECTOMY NON-CANCER) Oral Surgery: Yes (MANDIBLE REPAIR) Other Surgery: Yes (LT LUMPECTOMY NON-CANCER) Family History Family Myocardial Infarction: Yes (FATHER AND GRANDFATHER ) Social History Alcohol Use: Yes (12 BEERS DAILY) Tobacco Use: Yes (1 PPD) Substance Use: No Allergies-Medications (Allergen,Severity, Reaction): Coded Allergies: No Known Allergies (Verified Allergy, Unknown, 02/08/17) Reported Meds & Prescriptions Reported Meds & Active Scripts Active Prednisone 20 Mg Tab 40 Mg PO DAILY Take 40 mg (2 tablets) daily for 10 days then take 20mg (1 tablet) daily x 10 days then take 10mg (1/2 tablet daily x 10 days, then discontinue Pentasa (Mesalamine) 250 Mg Caper 1,000 Mg PO QID 30 Days Reported Sucralfate 1 Gm Tab 1 Gm PO TIDACHS on empty stomach Pantoprazole (Pantoprazole Sodium) 40 Mg Tab 40 Mg PO DAILY Alprazolam 0.5 Mg Tab 0.5 Mg PO TID PRN Review of Systems Except as stated in HPI: all other systems reviewed are Neg General / Constitutional: No: Fever, Chills HENT: No: Headaches, Neck Pain Cardiovascular: Positive: Tachycardia, No: Chest Pain or Discomfort Respiratory: No: Cough, Shortness of Breath Gastrointestinal: Positive: Nausea, Vomiting, Diarrhea, Abdominal Pain Genitourinary: No: Dysuria, Decreased Urinary Output Musculoskeletal: No: Weakness, Pain Neurologic: No: Weakness, Headache, Change in Mentation Physical Exam Narrative GENERAL: Developed well-nourished female in obvious discomfort. SKIN: Focused skin assessment warm/dry. HEAD: Atraumatic. Normocephalic. EYES: No scleral icterus. No injection or drainage. ENT: No nasal bleeding or discharge. Mucous membranes pink and moist. NECK: Trachea midline. Supple. CARDIOVASCULAR: Tachycardic with a heart rate in the low 100s.. No murmur appreciated. RESPIRATORY: No accessory muscle use. Clear to auscultation. Breath sounds equal bilaterally. GASTROINTESTINAL: Abdomen soft, nondistended. The patient has tenderness to palpation in her left lateral abdominal area. There is no rebound but mild guarding. RECTAL EXAM: In the presence of the nurse Larisa. Brown stool that was heme positive. MUSCULOSKELETAL: No obvious deformities. No clubbing. No cyanosis. No edema. NEUROLOGICAL: Awake and alert. No obvious cranial nerve deficits. Motor grossly within normal limits. Normal speech. PSYCHIATRIC: Appropriate mood and affect; insight and judgment normal. Data Data Last Documented VS Vital Signs Date Time Temp Pulse Resp B/P (MAP) Pulse Ox O2 Delivery O2 Flow Rate FiO2 02/08/17 03:35 92 16 128/60 (82) 97 Room Air 02/07/17 23:57 98.4 Orders Orders Complete Blood Count With Diff (02/08/17 00:29) Comprehensive Metabolic Panel (02/08/17 00:29) Lipase (02/08/17 00:29) Prothrombin Time / Inr (Pt) (02/08/17 00:29) Act Partial Throm Time (Ptt) (02/08/17 00:29) Urinalysis - C+S If Indicated (02/08/17 00:29) Iv Access Insert/Monitor (02/08/17 00:29) Ecg Monitoring (02/08/17 00:29) Oximetry (02/08/17 00:29) Ondansetron Inj (Zofran Inj) (02/08/17 00:30) Pantoprazole Inj (Protonix Inj) (02/08/17 00:30) Sodium Chlor 0.9% 1000 Ml Inj (Ns 1000 M (02/08/17 00:29) Sodium Chloride 0.9% Flush (Ns Flush) (02/08/17 00:30) Morphine Inj (Morphine Inj) (02/08/17 00:30) Pantoprazole Inj (Protonix Inj) (02/08/17 00:30) Type And Screen (02/08/17 00:29) Morphine Inj (Morphine Inj) (02/08/17 02:45) Vital Signs (Adult) Q4H (02/08/17 03:21) Intake + Output BART.QSHIFT (02/08/17 03:21) Diet Npo (02/08/17 Breakfast) Sodium Chloride 0.9% Flush (Ns Flush) (02/08/17 03:30) Sodium Chloride 0.9% Flush (Ns Flush) (02/08/17 09:00) Sodium Chlor 0.9% 1000 Ml Inj (Ns 1000 M (02/08/17 03:21) Hgb & Hct (02/08/17 06:30) Hgb & Hct (02/08/17 12:30) Hgb & Hct (02/08/17 18:30) Hgb & Hct (02/09/17 00:30) Complete Blood Count With Diff (02/09/17 06:00) Comprehensive Metabolic Panel (02/09/17 06:00) Consult Gastroenterology (02/08/17 ) Place In Observation (02/08/17 ) Activity Oob With Assistance (02/08/17 03:21) Bedside Glucose BART.CSUGAR (02/08/17 03:21) Intake + Output BART.QSHIFT (02/08/17 03:21) Alcohol Withdrawal Asmt-Ciwa Q4HX18 (02/08/17 03:21) ^ Seizure Precautions (02/08/17 03:21) Sodium Chloride 0.9% Flush (Ns Flush) (02/08/17 03:30) Sodium Chloride 0.9% Flush (Ns Flush) (02/08/17 09:00) Folic Acid (Folate) (02/08/17 09:00) Thiamine (Vit B1) (Vitamin B1) (02/08/17 09:00) Multivitamins-Minerals Therap (Theragran (02/08/17 09:00) Ondansetron Inj (Zofran Inj) (02/08/17 03:30) Consult Cm-Etoh Abuse Dc Plan (02/08/17 ) Flumazenil Inj (Romazicon Inj) (02/08/17 03:30) Lorazepam (Ativan) (02/08/17 03:30) Lorazepam Inj (Ativan Inj) (02/08/17 03:30) Lorazepam (Ativan) (02/08/17 03:30) Lorazepam Inj (Ativan Inj) (02/08/17 03:30) Lorazepam Inj (Ativan Inj) (02/08/17 03:30) Lorazepam Inj (Ativan Inj) (02/08/17 03:30) Pantoprazole Inj (Protonix Inj) (02/08/17 13:00) (Hub Use Only)Inp Phy Cons/Ref (02/08/17 ) Admit Order (Ed Use Only) (02/08/17 03:37) Labs Laboratory Tests Test 02/08/17 00:30 02/08/17 01:50 White Blood Count 8.5 TH/MM3 Red Blood Count 2.36 MIL/MM3 Hemoglobin 8.2 GM/DL Hematocrit 25.0 % Mean Corpuscular Volume 106.3 FL Mean Corpuscular Hemoglobin 34.7 PG Mean Corpuscular Hemoglobin Concent 32.7 % Red Cell Distribution Width 16.7 % Platelet Count 338 TH/MM3 Mean Platelet Volume 7.6 FL Neutrophils (%) (Auto) 66.0 % Lymphocytes (%) (Auto) 22.0 % Monocytes (%) (Auto) 10.1 % Eosinophils (%) (Auto) 1.7 % Basophils (%) (Auto) 0.2 % Neutrophils # (Auto) 5.6 TH/MM3 Lymphocytes # (Auto) 1.9 TH/MM3 Monocytes # (Auto) 0.9 TH/MM3 Eosinophils # (Auto) 0.1 TH/MM3 Basophils # (Auto) 0.0 TH/MM3 CBC Comment DIFF FINAL Differential Comment Prothrombin Time 10.1 SEC Prothromb Time International Ratio 1.0 RATIO Activated Partial Thromboplast Time 23.6 SEC Blood Urea Nitrogen 4 MG/DL Creatinine 0.46 MG/DL Random Glucose 77 MG/DL Total Protein 6.4 GM/DL Albumin 2.4 GM/DL Calcium Level 7.7 MG/DL Alkaline Phosphatase 89 U/L Aspartate Amino Transf (AST/SGOT) 13 U/L Alanine Aminotransferase (ALT/SGPT) 9 U/L Total Bilirubin LESS THAN 0.1 MG/DL Sodium Level 142 MEQ/L Potassium Level 3.6 MEQ/L Chloride Level 108 MEQ/L Carbon Dioxide Level 28.3 MEQ/L Anion Gap 6 MEQ/L Estimat Glomerular Filtration Rate 146 ML/MIN Lipase 150 U/L Urine Color LIGHT-YELLOW Urine Turbidity CLEAR Urine pH 6.5 Urine Specific [place] 1.012 Urine Protein NEG mg/dL Urine Glucose (UA) NEG mg/dL Urine Ketones NEG mg/dL Urine Occult Blood NEG Urine Nitrite NEG Urine Bilirubin NEG Urine Urobilinogen LESS THAN 2.0 MG/DL Urine Leukocyte Esterase TRACE Urine RBC 1 /hpf Urine WBC 2 /hpf Urine Squamous Epithelial Cells 3 /hpf Urine Bacteria RARE /hpf Urine Mucus FEW /lpf Microscopic Urinalysis Comment CULT NOT INDICATED MDM Medical Decision Making Medical Screen Exam Complete: Yes Emergency Medical Condition: Yes Differential Diagnosis Upper GI bleed versus lower GI bleed versus pancreatitis versus metabolic derangement Narrative Course 46-year-old female history of alcoholism, peptic ulcer disease, Crohn's disease , presents today with complaints of abdominal pain with associated nausea vomiting. Patient reports blood in her vomit and her stool. She reports left sided abdominal pain. Patient is heme positive on exam. Hemoglobin is 8.2. Patient's previous hemoglobin was nearly 12 in September. She's been started on a Protonix drip. She's been given 2 doses of IVD pain medication. She'll be admitted to the hospital. She has been typed and crossed. Diagnosis Primary Impression: GI bleed Additional Impressions: history of Crohn's disease Anemia Alcohol abuse Admitting Information Admitting Physician Requests: Admit Horace Cevallos MD Feb 08, 2017 01:19
[2017-02-08 01:25] LABS: APTT (PATIENT) 23.6 SEC (24.3-30.1); PROTHROMBIN TIME - PATIENT 10.1 SEC (9.8-11.6)
[2017-02-08 01:43] LABS: ALT (GPT) 9 U/L (10-53); ANION GAP 6 MEQ/L (5-15); AST (GOT) 13 U/L (15-37); BICARBONATE 28.3 MEQ/L (21.0-32.0); BLOOD UREA NITROGEN 4 MG/DL (7-18); CHLORIDE 108 MEQ/L (98-107); GLOMERULAR FILTRATION RATE 146 ML/MIN (>89); POTASSIUM 3.6 MEQ/L (3.5-5.1); SODIUM (NA) 142 MEQ/L (136-145)
[2017-02-08 01:45] LABS: ALKALINE PHOSPHATASE 89 U/L (45-117); TOTAL BILIRUBIN ADULT LESS THAN 0.1 MG/DL (0.2-1.0)
[2017-02-08 02:09] LABS: BACTERIA, URINE RARE /hpf; BLOOD, URINE NEG (NEG); COMMENT (UR) CULT NOT INDICATED; CULTURE IF INDICATED CULT NOT INDICATED; GLUCOSE,URINE NEG (NEG); KETONE, URINE NEG (NEG); MUCUS URINE FEW /lpf (OCC); NITRITE,URINE NEG (NEG); PH, URINE 6.5 (5.0-8.5); SQUAMOUS EPITHELIAL CELL URINE 3 /hpf (0-5); URINE COLOR LIGHT-YELLOW (YELLW/STRAW)
[2017-02-08] MEDS ORDERED: FLUMAZENIL 0.5 MG/5 ML VIAL IV PUSH PRN (03:30)
[2017-02-08] MEDS ORDERED: LORazepam 2 MG TAB PO PRN (03:30)
[2017-02-08] MEDS ORDERED: LORazepam 2 MG/ML VIAL IV PUSH PRN ×3 (03:30)
[2017-02-08 03:35] VITALS: BP 128/60; PULSE 92; RESP 16; O2SAT 97
[2017-02-08] MEDS: SODIUM CHLOR 0.9% 1000 ML INJ 1,000 ML IV SCH ×2 (03:38→15:05)
[2017-02-08] MEDS: LORazepam 2 MG/ML VIAL IV PUSH PRN ×2 (07:45→15:29)
--- NOTE | 2017-02-08 08:57 | HHI.HP ---
[facility] No Primary Care Physician Admission Diagnosis gi bleed, abdominal pain, anemia Diagnoses: Chief Complaint: GI bleed, abdominal pain, hematemesis Travel History International Travel<30 Days: No Contact w/Intl Traveler <30 Da: No Traveled to Known Affected Are: No History of Present Illness This is a 46-year-old female history of Crohn's disease, gastric ulcers, and alcoholism who presented with bloody vomit, bloody diarrhea, abdominal pain after relapsing from alcoholism about 3 weeks ago. Patient stated that she relapsed 3 weeks ago and started drinking about 10-12 beers a day. The past few days patient had episodes of emesis that was described as bloody. She stated that it was possible subluxed. Patient then had bloody diarrhea described as bright red blood and black blood. She also had epigastric and left -sided pain. Patient stated that she felt this was all due to her alcohol still did not want to come to the ER initially but stated that symptoms worsen so she went to the ED. Patient does admit to having lightheadedness/dizziness. Deny any chest pain, shortness of breathing or palpitations. She stated that she saw Dr. Burgos and Viri Case once for her Crohn's disease. She stated that should he order a bunch of imaging studies and she did not follow through. Noted on exam that patient's abdomen was distended. Patient stated that her abdomen became distended maybe about a week ago. She stated that she did not know why this happened. All other review of system reviewed and negative. Past Family Social History Past Medical History Cronhs gastric ulcers hernia alcoholism Past Surgical History 12/14/12 Lexiscan-Unremarkable, EF 64% Reported Medications Prednisone 20 Mg Tab 40 Mg PO DAILY Take 40 mg (2 tablets) daily for 10 days then take 20mg (1 tablet) daily x 10 days then take 10mg (1/2 tablet daily x 10 days, then discontinue Pentasa (Mesalamine) 250 Mg Caper 1,000 Mg PO QID 30 Days Reported Sucralfate 1 Gm Tab 1 Gm PO TIDACHS on empty stomach Pantoprazole (Pantoprazole Sodium) 40 Mg Tab 40 Mg PO DAILY Alprazolam 0.5 Mg Tab 0.5 Mg PO TID PRN Allergies: Coded Allergies: No Known Allergies (Verified Allergy, Unknown, 02/08/17) Active Ordered Medications Current Medications Ondansetron HCl (Zofran Inj) 4 mg ONCE ONCE IVP Last administered on 01:02; Start 02/08/17 at 00:30; Stop 02/08/17 at 00:45; Status DC Pantoprazole Sodium (Protonix Inj) 40 mg ONCE ONCE IVP Last administered on 01:03; Start 02/08/17 at 00:30; Stop 02/08/17 at 00:45; Status DC Sodium Chloride 1,000 ml @ 125 mls/hr Q8H IV Last administered on 02/08/17 01:03; Start 02/08/17 at 00:29; Stop 02/08/17 at 03:37; Status DC Sodium Chloride (NS Flush) 2 ml UNSCH PRN IV FLUSH FLUSH AFTER USING IV ACCESS ; Start 02/08/17 at 00:30; Stop 02/08/17 at 03:39; Status DC Morphine Sulfate (Morphine Inj) 5 mg ONCE ONCE IV PUSH Last administered on 01:02; Start 02/08/17 at 00:30; Stop 02/08/17 at 00:45; Status DC Pantoprazole Sodium 80 mg/ Sodium Chloride 100 ml @ 10 mls/hr CONTINUOUS IV Last administered on 02/08/17 01:03; Start 02/08/17 at 00:30 Morphine Sulfate (Morphine Inj) 5 mg ONCE ONCE IV PUSH Last administered on 02:52; Start 02/08/17 at 02:45; Stop 02/08/17 at 02:46; Status DC Sodium Chloride (NS Flush) 2 ml UNSCH PRN IV FLUSH FLUSH AFTER USING IV ACCESS ; Start 02/08/17 at 03:30; Stop 02/08/17 at 03:39; Status DC Sodium Chloride (NS Flush) 2 ml BID IV FLUSH ; Start 02/08/17 at 09:00; Stop 02/08/17 at 09:00; Status DC Sodium Chloride 1,000 ml @ 100 mls/hr Q10H IV Last administered on 02/08/17t 03:38; Start 02/08/17 at 03:21 Sodium Chloride (NS Flush) 2 ml UNSCH PRN IV FLUSH FLUSH AFTER USING IV ACCESS ; Start 02/08/17 at 03:30 Sodium Chloride (NS Flush) 2 ml BID IV FLUSH ; Start 02/08/17 at 09:00 Folic Acid (Folate) 1 mg DAILY PO ; Start 02/08/17 at 09:00; Stop 02/13/17 at 08:59 Thiamine HCl (Vitamin B1) 100 mg DAILY PO ; Start 02/08/17 at 09:00 Multivitamins/ Minerals Therapeutic (Theragran M Tab) 1 tab DAILY PO ; Start at 09:00; Stop 02/13/17 at 08:59 Ondansetron HCl (Zofran Inj) 4 mg Q6H PRN IV PUSH NAUSEA OR VOMITING; Start at 03:30 Flumazenil (Romazicon Inj) 0.2 mg Q1M PRN IV PUSH SEE LABEL COMMENTS; Start at 03:30 Lorazepam (Ativan) 1 mg Q4H PRN PO CIWA 8 - 10; Start 02/08/17 at 03:30 Lorazepam (Ativan Inj) 1 mg Q4H PRN IV PUSH CIWA 8 - 10 Last administered on t 07:45; Start 02/08/17 at 03:30 Lorazepam (Ativan) 2 mg Q2H PRN PO CIWA 11-14; Start 02/08/17 at 03:30 Lorazepam (Ativan Inj) 2 mg Q2H PRN IV PUSH CIWA 11-14; Start 02/08/17 at 03: 30 Lorazepam (Ativan Inj) 2 mg Q1H PRN IV PUSH CIWA 15-20; Start 02/08/17 at 03: 30 Lorazepam (Ativan Inj) 2 mg Q15M PRN IV PUSH CIWA > 20; Start 02/08/17 at 03: 30 Pantoprazole Sodium (Protonix Inj) 40 mg Q12H IV PUSH ; Start 02/08/17 at 13:00 ; Stop 02/08/17 at 13:00; Status DC Family History Father x3 [place] beginning age 52. Social History Drinks 10-12 beers a day, denies any illicit drug use, smokes tobacco 1 pack per day for more than 20 years. Physical Exam Vital Signs Vital Signs Date Time Temp Pulse Resp B/P (MAP) Pulse Ox O2 Delivery O2 Flow Rate FiO2 02/08/17 03:41 16 02/08/17 03:40 16 02/08/17 03:35 92 16 128/60 (82) 97 Room Air 02/08/17 01:00 97 16 122/67 (85) 98 Room Air 02/08/17 00:04 22 02/07/17 23:57 98.4 100 22 152/79 (103) 99 Physical Exam GENERAL: This is a well-nourished, well-developed patient, in no apparent distress. SKIN: No rashes, ecchymoses or lesions. Cool and dry. HEAD: Atraumatic. Normocephalic. No temporal or scalp tenderness. EYES: Pupils equal round and reactive. Extraocular motions intact. No scleral icterus. No injection or drainage. ENT: Nose without bleeding, purulent drainage or septal hematoma. Throat without erythema, tonsillar hypertrophy or exudate. Uvula midline. Airway patent. NECK: Trachea midline. No JVD or lymphadenopathy. Supple, nontender, no meningeal signs. CARDIOVASCULAR: Regular rate and rhythm without murmurs, gallops, or rubs. RESPIRATORY: Clear to auscultation. Breath sounds equal bilaterally. No wheezes , rales, or rhonchi. GASTROINTESTINAL: Abdomen soft but distended. Positive tenderness palpation in the epigastric and left-sided abdomen. No peritoneal signs. MUSCULOSKELETAL: Extremities without clubbing, cyanosis, or edema. No joint tenderness, effusion, or edema noted. No calf tenderness. Negative Homans sign bilaterally. NEUROLOGICAL: Awake and alert. Cranial nerves II through XII intact. Motor and sensory grossly within normal limits. Five out of 5 muscle strength in all muscle groups. Normal speech. Laboratory Laboratory Tests Test 02/08/17 00:30 02/08/17 01:50 White Blood Count 8.5 Red Blood Count 2.36 Hemoglobin 8.2 Hematocrit 25.0 Mean Corpuscular Volume 106.3 Mean Corpuscular Hemoglobin 34.7 Mean Corpuscular Hemoglobin Concent 32.7 Red Cell Distribution Width 16.7 Platelet Count 338 Mean Platelet Volume 7.6 Neutrophils (%) (Auto) 66.0 Lymphocytes (%) (Auto) 22.0 Monocytes (%) (Auto) 10.1 Eosinophils (%) (Auto) 1.7 Basophils (%) (Auto) 0.2 Neutrophils # (Auto) 5.6 Lymphocytes # (Auto) 1.9 Monocytes # (Auto) 0.9 Eosinophils # (Auto) 0.1 Basophils # (Auto) 0.0 CBC Comment DIFF FINAL Differential Comment Prothrombin Time 10.1 Prothromb Time International Ratio 1.0 Activated Partial Thromboplast Time 23.6 Blood Urea Nitrogen 4 Creatinine 0.46 Random Glucose 77 Total Protein 6.4 Albumin 2.4 Calcium Level 7.7 Alkaline Phosphatase 89 Aspartate Amino Transf (AST/SGOT) 13 Alanine Aminotransferase (ALT/SGPT) 9 Total Bilirubin LESS THAN 0.1 Sodium Level 142 Potassium Level 3.6 Chloride Level 108 Carbon Dioxide Level 28.3 Anion Gap 6 Estimat Glomerular Filtration Rate 146 Lipase 150 Urine Color LIGHT-YELLOW Urine Turbidity CLEAR Urine pH 6.5 Urine Specific [place] 1.012 Urine Protein NEG Urine Glucose (UA) NEG Urine Ketones NEG Urine Occult Blood NEG Urine Nitrite NEG Urine Bilirubin NEG Urine Urobilinogen LESS THAN 2.0 Urine Leukocyte Esterase TRACE Urine RBC 1 Urine WBC 2 Urine Squamous Epithelial Cells 3 Urine Bacteria RARE Urine Mucus FEW Microscopic Urinalysis Comment CULT NOT INDICATED Result Diagram: 02/08/172902/08/1729 Caprini VTE Risk Assessment Caprini VTE Risk Assessment: Mod/High Risk (score >= 2) Caprini Risk Assessment Model Point Value = 1 Point Value = 2 Point Value = 3 Point Value = 5 Age 41-60 Minor surgery BMI > 25 kg/m2 Swollen legs Varicose veins or History of unexplained or recurrent spontaneous Oral contraceptives or hormone replacement Sepsis (< 1 month) Serious lung disease, including pneumonia (< 1 month) Abnormal pulmonary function Acute myocardial infarction Congestive heart failure (< 1 month) History of inflammatory bowel disease Medical patient at bed rest Age 61-74 Arthroscopic surgery Major open surgery (> 45 min) Laparoscopic surgery (> 45 min) Malignancy Confined to bed (> 72 hours) Immobilizing plaster cast Central venous access Age >= 75 History of VTE Family history of VTE Factor V Leiden Prothrombin [id number] Lupus anticoagulant Anticardiolipin antibodies Elevated serum homocysteine Heparin-induced thrombocytopenia Other congenital or acquired thrombophilia Stroke (< 1 month) Elective arthroplasty Hip, pelvis, or leg fracture Acute spinal cord injury (< 1 month) Prophylaxis Regimen Total Risk Factor Score Risk Level Prophylaxis Regimen 0-1 Low Early ambulation 2 Moderate Order ONE of the following: *Sequential Compression Device (SCD) *Heparin 5000 units SQ BID 3-4 Higher Order ONE of the following medications: *Heparin 5000 units SQ TID *Enoxaparin/Lovenox 40 mg SQ daily (WT < 150 kg, CrCl > 30 mL/min) *Enoxaparin/Lovenox 30 mg SQ daily (WT < 150 kg, CrCl > 10-29 mL/min) *Enoxaparin/Lovenox 30 mg SQ BID (WT < 150 kg, CrCl > 30 mL/min) AND/OR *Sequential Compression Device (SCD) 5 or more Highest Order ONE of the following medications: *Heparin 5000 units SQ TID (Preferred with Epidurals) *Enoxaparin/Lovenox 40 mg SQ daily (WT < 150 kg, CrCl > 30 mL/min) *Enoxaparin/Lovenox 30 mg SQ daily (WT < 150 kg, CrCl > 10-29 mL/min) *Enoxaparin/Lovenox 30 mg SQ BID (WT < 150 kg, CrCl > 30 mL/min) AND *Sequential Compression Device (SCD) Assessment and Plan Assessment and Plan 46-year-old female with alcoholism, gastric ulcers and Crohn's disease presented with GI bleed and abdominal pain GI bleed/hematemesis/bloody diarrhea -Positive Hemoccult stool. Hemoglobin dropped from 11.9 to 8.2. -Previous EGD showed gastric ulcers. -Continue to monitor hemoglobin, IV fluids, transfuse if patient becomes symptomatic, hemoglobin less than 7 or if hemoglobin continues to decrease. -Consult GI patient will need an endoscopy. -Continue with supportive care. Abdominal pain -May be secondary due to gastric ulcers. Concerns for bleeding ulcer. -See treatment as above. Abdominal distention -Questionable ascites. -We will get an abdominal ultrasound. Alcoholism -Education given. -Will place on CIWA protocol. Crohn's disease -Once patient able to tolerate oral intake will restart home medication. DVT prophylaxis -Contraindicated secondary to GI bleed. SCDs. Discussed Condition With patient Physician Certification 2 Midnight Certification Type: Admission for Inpatient Services Order for Inpatient Services The services are ordered in accordance with Medicare regulations or non- Medicare payer requirements, as applicable. In the case of services not specified as inpatient-only, they are appropriately provided as inpatient services in accordance with the 2-midnight benchmark. Estimated LOS (days): 2 2 days is the estimated time the patient will need to remain in the hospital, assuming treatment plan goals are met and no additional complications. Post-Hospital Plan: Maddie Austin MD Feb 08, 2017 08:57
[2017-02-08] MEDS ORDERED: SODIUM CHLORIDE 0.9% FLUSH 10 ML FLUSH IV FLUSH SCH (09:00)
[2017-02-08] MEDS: FOLIC ACID 1 MG TAB PO SCH (09:06)
[2017-02-08] MEDS: THIAMINE HCL 100 MG TAB PO SCH (09:06)
[2017-02-08] MEDS: MULTIVITAMINS/MINERALS THERAPEUTIC TAB PO SCH (09:06)
[2017-02-08] MEDS: MORPHINE SULFATE 2 MG/ML INJ IV PUSH PRN ×3 (09:07→21:01)
[2017-02-08] MEDS: SODIUM CHLORIDE 0.9% FLUSH 10 ML FLUSH IV FLUSH SCH ×2 (09:09→21:02)
--- NOTE | 2017-02-08 10:39 | RADRPT ---
EXAM DATE/TIME: 02/08/2017 09:31 [place] COMPARISON: No previous studies available for comparison. INDICATIONS : Abdominal pain. MEDICAL HISTORY : Hypothyroidism. Hypercholesterolemia. Gastritis. Ulcer. Hiatal hernia. Depression. Anxiety. C-diff. SURGICAL HISTORY : Tubal ligation. Mandible repair. Left breast lumpectomy. ENCOUNTER: Initial ACUITY: 1 day PAIN SCORE: 4/10 LOCATION: Abdomen. MEASUREMENTS: LIVER: 18.6 cm length COMMON DUCT: 6 mm RIGHT KIDNEY: 11.0 x 4.9 x 6.6 cm LEFT KIDNEY: 10.3 x 5.9 x 6.1 cm SPLEEN: 10.3 cm length AORTA: 2.2cm maximal FINDINGS: LIVER: Increased echotexture without focal lesion or ductal dilatation. COMMON DUCT: No intraluminal mass or stone visualized. GALLBLADDER: Distended but no stones are seen. PANCREAS: The visualized portions are within normal limits. RIGHT KIDNEY: No hydronephrosis, stone or mass. LEFT KIDNEY: No hydronephrosis, stone or mass. SPLEEN: No focal lesion. AORTA: Non aneurysmal. IVC: Within normal limits. CONCLUSION: Normal examination, distended gallbladder and fatty liver. Tadeo Costello MD on February 08, 2017 at 10:35 Board Certified Radiologist. This report was verified electronically.
--- NOTE | 2017-02-08 10:55 | PD.CONS ---
HPI History of Present Illness This is a 46 year old female who presented to the emergency room with retractable abdominal pain, nausea, diarrhea 2 weeks. She also notes symptoms of blood in her emesis small amount as well as specks of blood in her stools at least 5 times a day , she also notes bloating and left upper quadrant and left lower quadrant and epigastric pain. According to patient she had colonoscopy and EGD in August 2016. She was given prescriptions for her meds but was unable to fill without some type of authorization. She had a recent diagnosis of Crohn' s disease per colonoscopy and was due for follow-up in February 2017. Patient is a known alcoholic and states that she has been drinking for the past 3 weeks 12 plus beers a day. This is when her onset of symptoms started back. Last bowel movement was at 02 100 this a.m., diarrhea loose watery stool. (Krista Levy) PFSH Past Medical History Crohn's disease gastric ulcers hernia alcoholism Past Surgical History 12/14/12 Lexiscan-Unremarkable, EF 64% According to patient EGD and colonoscopy August 2016 (Krista Levy) Coded Allergies: No Known Allergies (Verified Allergy, Unknown, 02/08/17) Medications Administered Medications Medications (Trade) Dose Ordered Sig/Bao Route PRN Reason Start Time Stop Time Status Last Admin Dose Admin Pantoprazole Sodium 80 mg/ Sodium Chloride 100 ml @ 10 mls/hr CONTINUOUS IV 02/08/17 00:30 02/08/17 01:03 Sodium Chloride 1,000 ml @ 100 mls/hr Q10H IV 02/08/17 03:21 02/08/17 03:38 Sodium Chloride (NS Flush) 2 ml BID IV FLUSH 02/08/17 09:00 02/08/17 09:09 Folic Acid (Folate) 1 mg DAILY PO 02/08/17 09:00 02/13/17 08:59 02/08/17 09:06 Thiamine HCl (Vitamin B1) 100 mg DAILY PO 02/08/17 09:00 02/08/17 09:06 Multivitamins/ Minerals Therapeutic (Theragran M Tab) 1 tab DAILY PO 02/08/17 09:00 02/13/17 08:59 02/08/17 09:06 Lorazepam (Ativan Inj) 1 mg Q4H PRN IV PUSH CIWA 8 - 10 02/08/17 03:30 02/08/17 07:45 Morphine Sulfate (Morphine Inj) 2 mg Q3H PRN IV PUSH pain 3-10 02/08/17 09:00 02/08/17 09:07 Family History Father x3 [place] beginning age 52. Social History Drinks 10-12 beers a day, denies any illicit drug use, smokes tobacco 1 pack per day for more than 20 years. (Krista Levy) Review of Systems Constitutional: COMPLAINS OF: Fatigue Gastrointestinal: COMPLAINS OF: Abdominal pain, Bloody stools, Diarrhea, Nausea , Vomiting (Krista Levy) GI Exam Vitals I&O Vital Signs Date Time Temp Pulse Resp B/P (MAP) Pulse Ox O2 Delivery O2 Flow Rate FiO2 02/08/17 03:41 16 02/08/17 03:40 16 02/08/17 03:35 92 16 128/60 (82) 97 Room Air 02/08/17 01:00 97 16 122/67 (85) 98 Room Air 02/08/17 00:04 22 02/07/17 23:57 98.4 100 22 152/79 (103) 99 I/O 02/07/17 02/07/17 02/07/17 02/08/17 02/08/17 02/08/17 07:00 15:00 23:00 07:00 15:00 23:00 Intake Total 100 ml Balance 100 ml Intake IV Total 100 ml Imaging Last Impressions Abdomen Ultrasound 02/08/17 0000 Signed Impressions: Service Date/Time: Wednesday, February 08, 2017 09:31 - CONCLUSION: Normal examination, distended gallbladder and fatty liver. Tadeo Costello MD Laboratory Test 02/08/17 00:30 02/08/17 01:50 White Blood Count 8.5 TH/MM3 Red Blood Count 2.36 MIL/MM3 Hemoglobin 8.2 GM/DL Hematocrit 25.0 % Mean Corpuscular Volume 106.3 FL Mean Corpuscular Hemoglobin 34.7 PG Mean Corpuscular Hemoglobin Concent 32.7 % Red Cell Distribution Width 16.7 % Platelet Count 338 TH/MM3 Mean Platelet Volume 7.6 FL Neutrophils (%) (Auto) 66.0 % Lymphocytes (%) (Auto) 22.0 % Monocytes (%) (Auto) 10.1 % Eosinophils (%) (Auto) 1.7 % Basophils (%) (Auto) 0.2 % Neutrophils # (Auto) 5.6 TH/MM3 Lymphocytes # (Auto) 1.9 TH/MM3 Monocytes # (Auto) 0.9 TH/MM3 Eosinophils # (Auto) 0.1 TH/MM3 Basophils # (Auto) 0.0 TH/MM3 CBC Comment DIFF FINAL Differential Comment Prothrombin Time 10.1 SEC Prothromb Time International Ratio 1.0 RATIO Activated Partial Thromboplast Time 23.6 SEC Blood Urea Nitrogen 4 MG/DL Creatinine 0.46 MG/DL Random Glucose 77 MG/DL Total Protein 6.4 GM/DL Albumin 2.4 GM/DL Calcium Level 7.7 MG/DL Alkaline Phosphatase 89 U/L Aspartate Amino Transf (AST/SGOT) 13 U/L Alanine Aminotransferase (ALT/SGPT) 9 U/L Total Bilirubin LESS THAN 0.1 MG/DL Sodium Level 142 MEQ/L Potassium Level 3.6 MEQ/L Chloride Level 108 MEQ/L Carbon Dioxide Level 28.3 MEQ/L Anion Gap 6 MEQ/L Estimat Glomerular Filtration Rate 146 ML/MIN Lipase 150 U/L Urine Color LIGHT-YELLOW Urine Turbidity CLEAR Urine pH 6.5 Urine Specific Swink 1.012 Urine Protein NEG mg/dL Urine Glucose (UA) NEG mg/dL Urine Ketones NEG mg/dL Urine Occult Blood NEG Urine Nitrite NEG Urine Bilirubin NEG Urine Urobilinogen LESS THAN 2.0 MG/DL Urine Leukocyte Esterase TRACE Urine RBC 1 /hpf Urine WBC 2 /hpf Urine Squamous Epithelial Cells 3 /hpf Urine Bacteria RARE /hpf Urine Mucus FEW /lpf Microscopic Urinalysis Comment CULT NOT INDICATED Physical Examination HEENT: Pupils round and reactive to light; normocephalic; atraumatic; no jaundice. NECK: Neck is supple, no JVD, no lymphadenopathy. CHEST: Chest is clear to auscultation and percussion. CARDIAC: Regular rate and rhythm with no murmur gallop or rubs. ABDOMEN: Soft, positive for bloating, tender gastric left upper quadrant and left lower quadrant; no hepatosplenomegaly; bowel sounds are present in all four quadrants. EXTREMITIES: No clubbing, cyanosis, or edema. SKIN: Normal; no rash; no jaundice. BOILER ERECTOR: No focal deficits; alert and oriented times three. (Cam,Krista M. [employer]IX SYSTEMS ADMINISTRATOR) Assessment and Plan Assessment: (1) Gastroenteritis ICD Codes: K52.9 - Noninfective gastroenteritis and colitis, unspecified Status: Acute (2) Pancolitis ICD Codes: K51.00 - Ulcerative (chronic) pancolitis without complications Status: Acute (3) Exacerbation of Crohn's disease ICD Codes: K50.90 - Crohn's disease, unspecified, without complications (4) Anemia ICD Codes: D64.9 - Anemia, unspecified Status: Acute (5) GI bleed ICD Codes: K92.2 - Gastrointestinal hemorrhage, unspecified Status: Acute (6) Alcohol abuse ICD Codes: F10.10 - Alcohol abuse, uncomplicated Status: Acute Plan Plan Diet clear liquids Start patient on steroids, Solu-Medrol 40 mg every 8 IV Start Mesalamine 500 mg by mouth twice a day Carafate 1 g before meals and at bedtime PPI IV drip started on admission EtOH managed per attendings Monitor intake and output Monitor diarrhea and symptoms Recheck labs in the morning Other testing and or procedures will be based on patient's outcomes and symptoms Supportive care Case discussed with , no done on his behalf (Krista Levy) Physician Comments Seen and examined, plan as above, will follow up with you. (Julio Cesar Aguilera MD) Krista Levy Feb 08, 2017 10:55 Julio Cesar Aguilera MD Feb 08, 2017 11:06
[2017-02-08] MEDS: MESALAMINE 250 MG CAP PO SCH ×2 (11:48→21:02)
[2017-02-08 12:10] LABS: HEMATOCRIT 23.3 % (35.0-46.0); REVIEW FLAG FINAL
[2017-02-08] MEDS: SUCRALFATE 1 GM/10 ML CUP PO SCH ×3 (12:19→21:00)
--- NOTE | 2017-02-08 12:48 | EKG ---
Date Performed: 02/08/2017 Time Performed: 00:01:08 PTAGE: 46 years EKG: SINUS TACHYCARDIA ABNORMAL RHYTHM ECG PREVIOUS TRACING : 02/07/2017 23.02 Since previous tracing, no significant change noted DOCTOR: Nolan Arvizu Interpretating Date/Time 02/08/2017 12:46:37
[2017-02-08] MEDS ORDERED: PANTOPRAZOLE SODIUM 40 MG VIAL IV PUSH SCH (13:00)
[2017-02-08] MEDS: methylPREDNISolone SOD SUCC 40 MG/1 ML VIAL IV PUSH SCH ×2 (15:04→21:01)
[2017-02-08 16:18] VITALS: BP 109/64; PULSE 96; RESP 18; TEMP 98.4; O2SAT 100
[2017-02-08 16:50] LABS: HEMATOCRIT 23.6 % (35.0-46.0); REVIEW FLAG FINAL
[2017-02-08 20:00] VITALS: BP 105/63; PULSE 87; RESP 20; TEMP 98.8; O2SAT 99
[2017-02-08 20:09] LABS: HEMATOCRIT 23.2 % (35.0-46.0); REVIEW FLAG FINAL
[2017-02-08] MEDS: LORazepam 1 MG TAB PO PRN (21:00)
[2017-02-09] VITALS (7 sets, daily range): BP systolic 107–141; BP diastolic 59–78; PULSE 77–92; RESP 16–20; TEMP 97.6–98.6; O2SAT 94–99
[2017-02-09] MEDS: MORPHINE SULFATE 2 MG/ML INJ IV PUSH PRN ×7 (00:39→21:38)
[2017-02-09] MEDS: SODIUM CHLORIDE 0.9% FLUSH 10 ML FLUSH IV FLUSH PRN ×3 (00:40→21:38)
[2017-02-09] MEDS: LORazepam 1 MG TAB PO PRN ×4 (00:52→21:35)
[2017-02-09 01:10] LABS: HEMATOCRIT 24.1 % (35.0-46.0); REVIEW FLAG FINAL
[2017-02-09] MEDS: SODIUM CHLOR 0.9% 1000 ML INJ 1,000 ML IV SCH ×2 (01:26→09:03)
[2017-02-09] MEDS: methylPREDNISolone SOD SUCC 40 MG/1 ML VIAL IV PUSH SCH ×3 (05:11→21:39)
[2017-02-09] MEDS: SUCRALFATE 1 GM/10 ML CUP PO SCH ×4 (09:00→20:07)
[2017-02-09] MEDS: SODIUM CHLORIDE 0.9% FLUSH 10 ML FLUSH IV FLUSH SCH ×2 (09:00→20:09)
[2017-02-09] MEDS: FOLIC ACID 1 MG TAB PO SCH (09:01)
[2017-02-09] MEDS: MULTIVITAMINS/MINERALS THERAPEUTIC TAB PO SCH (09:01)
[2017-02-09] MEDS: THIAMINE HCL 100 MG TAB PO SCH (09:01)
[2017-02-09] MEDS: MESALAMINE 250 MG CAP PO SCH ×2 (09:01→20:08)
[2017-02-09 09:42] LABS: AUTOMATED NEUTROPHIL # 8.7 TH/MM3 (1.8-7.7); BASOPHIL % 0.2 % (0.0-2.0); HEMATOCRIT 25.9 % (35.0-46.0); HEMO FLAGS DIFF FINAL; LYMPH % 6.1 % (9.0-44.0); LYMPHOCYTE # 0.6 TH/MM3 (1.0-4.8); MEAN CELL VOLUME 107.4 FL (80.0-100.0); MEAN CORPUSCULAR HEMOGLOBIN 34.9 PG (27.0-34.0); MEAN CORPUSCULAR HGB CONC 32.5 % (32.0-36.0); MONO % 1.6 % (0.0-8.0); NEUT % 92.1 % (16.0-70.0); PLATELET COUNT 307 TH/MM3 (150-450); RED BLOOD COUNT 2.41 MIL/MM3 (4.00-5.30); RED CELL DISTRIBUTION WIDTH 16.7 % (11.6-17.2); WHITE BLOOD COUNT 9.4 TH/MM3 (4.0-11.0)
[2017-02-09] MEDS ORDERED: INFLUENZA VIRUS VACCINE (QUADRIVALENT) 0.5 ML SYR IM ONE (10:00)
[2017-02-09 10:04] LABS: ALT (GPT) 10 U/L (10-53); ANION GAP 9 MEQ/L (5-15); AST (GOT) 14 U/L (15-37); BICARBONATE 23.9 MEQ/L (21.0-32.0); BLOOD UREA NITROGEN 4 MG/DL (7-18); CHLORIDE 105 MEQ/L (98-107); GLOMERULAR FILTRATION RATE 153 ML/MIN (>89); POTASSIUM 4.1 MEQ/L (3.5-5.1); SODIUM (NA) 138 MEQ/L (136-145)
[2017-02-09 10:17] LABS: ALKALINE PHOSPHATASE 88 U/L (45-117); TOTAL BILIRUBIN ADULT 0.1 MG/DL (0.2-1.0)
--- NOTE | 2017-02-09 15:28 | HHI.PR ---
Subjective Remarks Patient lying in bed. Reports continued diffuse abdominal pain. Denies any chest pain or shortness of breath. Objective Vital Signs Date Time Temp Pulse Resp B/P (MAP) Pulse Ox O2 Delivery O2 Flow Rate FiO2 02/09/17 12:34 98.6 89 18 109/63 (78) 97 02/09/17 12:33 20 02/09/17 08:55 98.0 77 16 107/59 (75) 98 02/09/17 04:00 97.6 80 20 111/70 (84) 96 02/09/17 00:00 98.2 82 20 109/61 (77) 94 02/08/17 20:00 98.8 87 20 105/63 (77) 99 02/08/17 16:18 98.4 96 18 109/64 (79) 100 I/O 02/08/17 02/08/17 02/08/17 02/09/17 02/09/17 02/09/17 07:00 15:00 23:00 07:00 15:00 23:00 Intake Total 100 ml 340 ml Output Total 400 ml Balance 100 ml -60 ml Intake Oral 340 ml IV Total 100 ml Output Urine Total 400 ml # Bowel Movements 0 Result Diagram: 02/09/1733 02/09/1733 Objective Remarks GENERAL: Patient sitting up in bed. Appears couple. Alert and oriented 3. SKIN: Warm and dry. HEAD: Normocephalic. EYES: No scleral icterus. No injection or drainage. NECK: Supple, trachea midline. No JVD. CARDIOVASCULAR: Regular rate and rhythm without murmurs, gallops, or rubs. RESPIRATORY: Breath sounds equal bilaterally. No accessory muscle use. GASTROINTESTINAL: Abdomen soft, non-tender, nondistended. No rebound or guarding. Positive bowel sounds. MUSCULOSKELETAL: No cyanosis, or edema. BACK: Nontender without obvious deformity. No CVA tenderness. A/P Assessment and Plan 46-year-old female with alcoholism, gastric ulcers and Crohn's disease presented with GI bleed and abdominal pain //GI bleed/hematemesis/bloody diarrhea -Positive Hemoccult stool. Hemoglobin dropped from 11.9 to 8.2. -Previous EGD showed gastric ulcers. -Continue to monitor hemoglobin, IV fluids, transfuse if patient becomes symptomatic, hemoglobin less than 7 or if hemoglobin continues to decrease. -Consult GI patient will need an endoscopy. -Continue with supportive care. = 02/09. Hemoglobin stable 8.4. GI following. Appreciate assistance. //Abdominal pain -May be secondary due to gastric ulcers. Concerns for bleeding ulcer. -See treatment as above. = GI following. Appreciate assistance. //Abdominal distention -Questionable ascites. -Dominant ultrasound without ascites. Does show fatty liver. //Alcoholism -Education given. -Continue on CIWA protocol. //Crohn's disease with suspected flare GI following. Continue mesalamine, IV steroids. Appreciate assistance. //DVT prophylaxis -Contraindicated secondary to GI bleed. SCDs. Discharge Planning Continues inpatient treatment for Crohn's flare. We'll need GI clearance. Sohan El MD Feb 09, 2017 15:28
--- NOTE | 2017-02-09 15:45 | HHI.GIFU ---
Subjective Remarks Pt resting in bed, partner at bedside. Says pain unchanged, diarrhea slightly worse. Bleeding has lessened. Tolerating clears. (Marlene Gamboa) Objective Vitals I&O Vital Signs Date Time Temp Pulse Resp B/P (MAP) Pulse Ox O2 Delivery O2 Flow Rate FiO2 02/09/17 12:34 98.6 89 18 109/63 (78) 97 02/09/17 12:33 20 02/09/17 08:55 98.0 77 16 107/59 (75) 98 02/09/17 04:00 97.6 80 20 111/70 (84) 96 02/09/17 00:00 98.2 82 20 109/61 (77) 94 02/08/17 20:00 98.8 87 20 105/63 (77) 99 02/08/17 16:18 98.4 96 18 109/64 (79) 100 I/O 02/08/17 02/08/17 02/08/17 02/09/17 02/09/17 02/09/17 07:00 15:00 23:00 07:00 15:00 23:00 Intake Total 100 ml 340 ml Output Total 400 ml Balance 100 ml -60 ml Intake Oral 340 ml IV Total 100 ml Output Urine Total 400 ml # Bowel Movements 0 Laboratory Laboratory Tests Test 02/08/17 16:15 02/08/17 19:25 02/09/17 01:00 02/09/17 08:33 Hemoglobin 7.5 7.5 8.0 8.4 Hematocrit 23.6 23.2 24.1 25.9 White Blood Count 9.4 Red Blood Count 2.41 Mean Corpuscular Volume 107.4 Mean Corpuscular Hemoglobin 34.9 Mean Corpuscular Hemoglobin Concent 32.5 Red Cell Distribution Width 16.7 Platelet Count 307 Mean Platelet Volume 8.1 Neutrophils (%) (Auto) 92.1 Lymphocytes (%) (Auto) 6.1 Monocytes (%) (Auto) 1.6 Eosinophils (%) (Auto) 0.0 Basophils (%) (Auto) 0.2 Neutrophils # (Auto) 8.7 Lymphocytes # (Auto) 0.6 Monocytes # (Auto) 0.1 Eosinophils # (Auto) 0.0 Basophils # (Auto) 0.0 CBC Comment DIFF FINAL Differential Comment Blood Urea Nitrogen 4 Creatinine 0.44 Random Glucose 120 Total Protein 6.6 Albumin 2.3 Calcium Level 8.2 Alkaline Phosphatase 88 Aspartate Amino Transf (AST/SGOT) 14 Alanine Aminotransferase (ALT/SGPT) 10 Total Bilirubin 0.1 Sodium Level 138 Potassium Level 4.1 Chloride Level 105 Carbon Dioxide Level 23.9 Anion Gap 9 Estimat Glomerular Filtration Rate 153 Imaging Last Impressions Abdomen Ultrasound 02/08/17 0000 Signed Impressions: Service Date/Time: Wednesday, February 08, 2017 09:31 - CONCLUSION: Normal examination, distended gallbladder and fatty liver. Tadeo Costello MD Physical Exam HEENT: PERRL; normocephalic; atraumatic; no jaundice. CHEST: CTA CARDIAC: RRR ABDOMEN: Soft, mildly distended, diffuse TTP; no hepatosplenomegaly; bowel sounds are present in all four quadrants. EXTREMITIES: No clubbing, cyanosis, or edema. SKIN: Normal; no rash; no jaundice. UTILITY HAND: No focal deficits; alert and oriented times three. (Marlene Gamboa) Assessment and Plan Assessment: (1) Gastroenteritis ICD Codes: K52.9 - Noninfective gastroenteritis and colitis, unspecified Status: Acute (2) Pancolitis ICD Codes: K51.00 - Ulcerative (chronic) pancolitis without complications Status: Acute (3) Exacerbation of Crohn's disease ICD Codes: K50.90 - Crohn's disease, unspecified, without complications (4) Anemia ICD Codes: D64.9 - Anemia, unspecified Status: Acute (5) GI bleed ICD Codes: K92.2 - Gastrointestinal hemorrhage, unspecified Status: Acute (6) Alcohol abuse ICD Codes: F10.10 - Alcohol abuse, uncomplicated Status: Acute Plan 02/09/17 HH improving, bleeding lessened. abd pain unchanged, still with loose stools. Plan - cont Diet clear liquids - cont Solu-Medrol 40 mg every 8 IV - cont Mesalamine - cont Carafate 1 g before meals and at bedtime - PPI I - monitor labs - Supportive care pt seen by myself and Dr Aguilera and this note is written on his behalf (Marlene Gamboa) Physician Comments Seen and examined, plan as above. (Julio Cesar Aguilera MD) Marlene Gamboa Feb 09, 2017 15:45 Julio Cesar Aguilera MD Feb 10, 2017 06:22
[2017-02-09] MEDS ORDERED: NICOTINE 21 MG/24 HR PATCH T-DERMAL ONE (19:00)
[2017-02-09] MEDS: ONDANSETRON HCL 4 MG/2 ML VIAL IV PUSH PRN (20:08)
[2017-02-10 00:38] VITALS: BP 116/65; PULSE 91; RESP 16; TEMP 98.3; O2SAT 95
[2017-02-10] MEDS: MORPHINE SULFATE 2 MG/ML INJ IV PUSH PRN ×6 (03:46→21:40)
[2017-02-10] MEDS: SODIUM CHLORIDE 0.9% FLUSH 10 ML FLUSH IV FLUSH PRN ×2 (03:46→03:54)
[2017-02-10] MEDS: ONDANSETRON HCL 4 MG/2 ML VIAL IV PUSH PRN ×2 (03:53→14:48)
[2017-02-10] MEDS: LORazepam 1 MG TAB PO PRN ×4 (04:48→20:09)
[2017-02-10] MEDS: SODIUM CHLOR 0.9% 1000 ML INJ 1,000 ML IV SCH ×3 (04:54→15:34)
[2017-02-10 05:32] VITALS: BP 123/71; PULSE 82; RESP 18; TEMP 98.3; O2SAT 98
[2017-02-10] MEDS: methylPREDNISolone SOD SUCC 40 MG/1 ML VIAL IV PUSH SCH ×3 (06:52→21:39)
[2017-02-10 08:13] VITALS: BP 116/72; PULSE 87; RESP 20; TEMP 98.5; O2SAT 95
[2017-02-10] MEDS: MESALAMINE 250 MG CAP PO SCH ×2 (08:33→20:09)
[2017-02-10] MEDS: FOLIC ACID 1 MG TAB PO SCH (08:34)
[2017-02-10] MEDS: THIAMINE HCL 100 MG TAB PO SCH (08:34)
[2017-02-10] MEDS: SUCRALFATE 1 GM/10 ML CUP PO SCH ×4 (08:34→20:09)
[2017-02-10] MEDS: MULTIVITAMINS/MINERALS THERAPEUTIC TAB PO SCH (08:34)
[2017-02-10] MEDS: REMOVE OLD PATCH T-DERMAL SCH (08:37)
[2017-02-10] MEDS: NICOTINE 21 MG/24 HR PATCH T-DERMAL SCH (08:37)
[2017-02-10] MEDS: SODIUM CHLORIDE 0.9% FLUSH 10 ML FLUSH IV FLUSH SCH ×2 (08:38→20:09)
[2017-02-10 12:45] VITALS: BP 107/68; PULSE 100; RESP 20; TEMP 98.6; O2SAT 98
[2017-02-10 13:33] LABS: BASOPHIL % 0.1 % (0.0-2.0); HEMATOCRIT 25.4 % (35.0-46.0); HEMO FLAGS DIFF FINAL; LYMPHOCYTE # 0.7 TH/MM3 (1.0-4.8); MEAN CELL VOLUME 106.1 FL (80.0-100.0); MEAN CORPUSCULAR HEMOGLOBIN 33.7 PG (27.0-34.0); MEAN CORPUSCULAR HGB CONC 31.8 % (32.0-36.0); NEUT % 92.9 % (16.0-70.0); PLATELET COUNT 401 TH/MM3 (150-450); WHITE BLOOD COUNT 16.2 TH/MM3 (4.0-11.0)
--- NOTE | 2017-02-10 13:41 | HHI.PR ---
Subjective Remarks Patient continues to report loose bowel movements. Continues to report abdominal pain, however reports that his left lower quadrant, worse with eating. Denies any chest pain or shortness of breath. Objective Vital Signs Date Time Temp Pulse Resp B/P (MAP) Pulse Ox O2 Delivery O2 Flow Rate FiO2 02/10/17 12:45 98.6 100 20 107/68 (81) 98 02/10/17 08:13 98.5 87 20 116/72 (87) 95 02/10/17 05:32 98.3 82 18 123/71 (88) 98 02/10/17 00:38 98.3 91 16 116/65 (82) 95 02/09/17 21:27 98.2 92 16 141/78 (99) 98 02/09/17 18:41 20 02/09/17 16:31 98.5 88 18 115/61 (79) 99 02/09/17 16:07 98.5 88 18 115/61 (79) 99 I/O 02/09/17 02/09/17 02/09/17 02/10/17 02/10/17 02/10/17 07:00 15:00 23:00 07:00 15:00 23:00 Intake Total 340 ml 1000 ml Output Total 400 ml Balance -60 ml 1000 ml Intake Oral 340 ml IV Total 1000 ml Output Urine Total 400 ml # Bowel Movements 0 Result Diagram: 02/09/1783202/09/17832 Objective Remarks GENERAL: Patient sitting up in bed. Appears comfortable, but demonstrates discomfort. alert and oriented 3. SKIN: Warm and dry. HEAD: Normocephalic. EYES: No scleral icterus. No injection or drainage. NECK: Supple, trachea midline. No JVD. CARDIOVASCULAR: Regular rate and rhythm without murmurs, gallops, or rubs. RESPIRATORY: Breath sounds equal bilaterally. No accessory muscle use. GASTROINTESTINAL: Abdomen soft,nondistended. No rebound or guarding. Positive bowel sounds. Patient does report left lower quadrant tenderness to moderate palpation today. MUSCULOSKELETAL: No cyanosis, or edema. BACK: Nontender without obvious deformity. No CVA tenderness. A/P Assessment and Plan 46-year-old female with alcoholism, gastric ulcers and Crohn's disease presented with GI bleed and abdominal pain //GI bleed/hematemesis/bloody diarrhea -Positive Hemoccult stool. Hemoglobin dropped from 11.9 to 8.2. -Previous EGD showed gastric ulcers. -Continue to monitor hemoglobin, IV fluids, transfuse if patient becomes symptomatic, hemoglobin less than 7 or if hemoglobin continues to decrease. -Consult GI patient will need an endoscopy. -Continue with supportive care. = 02/09. Hemoglobin stable 8.4. GI following. Appreciate assistance. = 02/10. Labs pending. //Abdominal pain -May be secondary due to gastric ulcers. Concerns for bleeding ulcer. -See treatment as above. = . Patient continues complaining of left lower abdominal pain. Will order CT abdomen. Discussed with GI. Appreciate assistance. //Abdominal distention //Fatty liver clinic alcohol related =no ascites. -abd ultrasound without ascites. Does show fatty liver. //Alcoholism -Education given. -Continue on CIWA protocol. = Start on Librium scheduled. Plan Taper //Crohn's disease with suspected flare GI following. Continue mesalamine, IV steroids. Appreciate assistance. = 02/10. CT abdomen pending as above //DVT prophylaxis -Contraindicated secondary to GI bleed. SCDs. Discharge Planning Continues inpatient treatment for Crohn's flare. Pending CT abdomen -CT abdomen negative, can consider discharge home tomorrow morning with prednisone taper. We'll need GI clearance. Sohan El MD Feb 10, 2017 13:41
[2017-02-10 13:54] LABS: ALT (GPT) 12 U/L (10-53); ANION GAP 6 MEQ/L (5-15); AST (GOT) 15 U/L (15-37); BICARBONATE 28.8 MEQ/L (21.0-32.0); BLOOD UREA NITROGEN 6 MG/DL (7-18); CHLORIDE 108 MEQ/L (98-107); GLOMERULAR FILTRATION RATE 107 ML/MIN (>89); POTASSIUM 3.7 MEQ/L (3.5-5.1); SODIUM (NA) 143 MEQ/L (136-145)
[2017-02-10 13:56] LABS: ALKALINE PHOSPHATASE 86 U/L (45-117); TOTAL BILIRUBIN ADULT LESS THAN 0.1 MG/DL (0.2-1.0)
--- NOTE | 2017-02-10 13:59 | HHI.GIFU ---
Subjective Remarks Pt resting in bed. diarrhea improving, no bleeding, but c/o LUQ pain that is persistent and refractory to pain meds, ETOH. (Marlene Gamboa) Objective Vitals I&O Vital Signs Date Time Temp Pulse Resp B/P (MAP) Pulse Ox O2 Delivery O2 Flow Rate FiO2 02/10/17 12:45 98.6 100 20 107/68 (81) 98 02/10/17 08:13 98.5 87 20 116/72 (87) 95 02/10/17 05:32 98.3 82 18 123/71 (88) 98 02/10/17 00:38 98.3 91 16 116/65 (82) 95 02/09/17 21:27 98.2 92 16 141/78 (99) 98 02/09/17 18:41 20 02/09/17 16:31 98.5 88 18 115/61 (79) 99 02/09/17 16:07 98.5 88 18 115/61 (79) 99 I/O 02/09/17 02/09/17 02/09/17 02/10/17 02/10/17 02/10/17 07:00 15:00 23:00 07:00 15:00 23:00 Intake Total 340 ml 1000 ml Output Total 400 ml Balance -60 ml 1000 ml Intake Oral 340 ml IV Total 1000 ml Output Urine Total 400 ml # Bowel Movements 0 Laboratory Laboratory Tests Test 02/10/17 12:31 White Blood Count 16.2 Red Blood Count 2.40 Hemoglobin 8.1 Hematocrit 25.4 Mean Corpuscular Volume 106.1 Mean Corpuscular Hemoglobin 33.7 Mean Corpuscular Hemoglobin Concent 31.8 Red Cell Distribution Width 17.0 Platelet Count 401 Mean Platelet Volume 8.7 Neutrophils (%) (Auto) 92.9 Lymphocytes (%) (Auto) 4.0 Monocytes (%) (Auto) 3.0 Eosinophils (%) (Auto) 0.0 Basophils (%) (Auto) 0.1 Neutrophils # (Auto) 15.0 Lymphocytes # (Auto) 0.7 Monocytes # (Auto) 0.5 Eosinophils # (Auto) 0.0 Basophils # (Auto) 0.0 CBC Comment DIFF FINAL Differential Comment Blood Urea Nitrogen 6 Creatinine 0.60 Random Glucose 108 Total Protein 6.2 Albumin 2.3 Calcium Level 7.8 Alkaline Phosphatase 86 Aspartate Amino Transf (AST/SGOT) 15 Alanine Aminotransferase (ALT/SGPT) 12 Total Bilirubin LESS THAN 0.1 Sodium Level 143 Potassium Level 3.7 Chloride Level 108 Carbon Dioxide Level 28.8 Anion Gap 6 Estimat Glomerular Filtration Rate 107 Imaging Last Impressions Abdomen Ultrasound 02/08/17 0000 Signed Impressions: Service Date/Time: Wednesday, February 08, 2017 09:31 - CONCLUSION: Normal examination, distended gallbladder and fatty liver. Tadeo Costello MD Physical Exam HEENT: PERRL; normocephalic; atraumatic; no jaundice. CHEST: CTA CARDIAC: RRR ABDOMEN: Soft, mildly distended, LUQ TTP; no hepatosplenomegaly; bowel sounds are present in all four quadrants. EXTREMITIES: No clubbing, cyanosis, or edema. SKIN: Normal; no rash; no jaundice. NYLON WINDER: No focal deficits; alert and oriented times three. (Marlene Gamboa) Assessment and Plan Assessment: (1) Gastroenteritis ICD Codes: K52.9 - Noninfective gastroenteritis and colitis, unspecified Status: Acute (2) Pancolitis ICD Codes: K51.00 - Ulcerative (chronic) pancolitis without complications Status: Acute (3) Exacerbation of Crohn's disease ICD Codes: K50.90 - Crohn's disease, unspecified, without complications (4) Anemia ICD Codes: D64.9 - Anemia, unspecified Status: Acute (5) GI bleed ICD Codes: K92.2 - Gastrointestinal hemorrhage, unspecified Status: Acute (6) Alcohol abuse ICD Codes: F10.10 - Alcohol abuse, uncomplicated Status: Acute Plan 02/10/17 - C/O persistent LUQ pain. CT abd pending Plan - await CT - cont clear liquids - cont Solu-Medrol 40 mg every 8 IV - cont Mesalamine - cont Carafate - PPI - monitor labs - Supportive care pt seen by myself and Dr Aguilera and this note is written on his behalf (Marlene Gamboa) Physician Comments Still complaining of abdominal pain, will check CT results. (Julio Cesar Aguilera MD) Marlene Gamboa Feb 10, 2017 13:59 Julio Cesar Aguilera MD Feb 10, 2017 14:58
[2017-02-10] MEDS ORDERED: DIATRIZOATE MEGLUM/DIATRIZOATE SOD 9 ML CUP PO ONE (14:30)
[2017-02-10 16:24] VITALS: BP 112/57; PULSE 94; RESP 20; TEMP 98.2; O2SAT 98
[2017-02-10] MEDS ORDERED: IOHEXOL 350 MG/ML 10 ML VIAL (for RAD DIAG) IVCONTRAST ONE (17:42)
--- NOTE | 2017-02-10 17:51 | RADRPT ---
EXAM DATE/TIME: 02/10/2017 17:38 [facility] COMPARISON: CT ABDOMEN & PELVIS W CONTRAST, October 15, 2016, 15:35. INDICATIONS : Diffuse abdomen pain for one day. IV CONTRAST: 100 cc Omnipaque 350 (iohexol) IV ORAL CONTRAST: Prescribed oral contrast ingested. RADIATION DOSE: 11.36 CTDIvol (mGy) MEDICAL HISTORY : Ulcer SURGICAL HISTORY : Mastectomy, bilateral. Tubal ligation. ENCOUNTER: Initial ACUITY: 1 day PAIN SCALE: 6/10 LOCATION: Left upper quadrant and lower quadrant. TECHNIQUE: Volumetric scanning of the abdomen and pelvis was performed. Using automated exposure control and ad justment of the mA and/or kV according to patient size, radiation dose was kept as low as reasonably achievable to obtain optimal diagnostic quality images. DICOM format image data is available electro nically for review and comparison. FINDINGS: LOWER LUNGS: Minimal groundglass opacities at the left lung base. LIVER: Homogeneous density without lesion. There is no dilation of the biliary tree. No calcified gallston es. SPLEEN: Normal size without lesion. PANCREAS: Within normal limits. KIDNEYS: Normal in size and shape. There is no mass, stone or hydronephrosis. ADRENAL GLANDS: Within normal limits. VASCULAR: There is no aortic aneurysm. BOWEL/MESENTERY: The stomach, small bowel, and colon demonstrate no acute abnormality. There is no free intraperitone al air or fluid. ABDOMINAL WALL: Within normal limits. RETROPERITONEUM: There is no lymphadenopathy. BLADDER: No wall thickening or mass. REPRODUCTIVE: Within normal limits. INGUINAL: There is no lymphadenopathy or hernia. MUSCULOSKELETAL: Within normal limits for patient age. CONCLUSION: 1. No acute abnormality to explain patient's abdominal pain. 2. Normal appendix. 3. No evidence for bowel obstruction. Marco A Sadler MD on February 10, 2017 at 17:46 Board Certified Radiologist. This report was verified electronically.
[2017-02-10] MEDS: PANTOPRAZOLE SOD 40 MG DELAYED RELEASE TAB PO SCH (20:09)
[2017-02-10 21:39] VITALS: BP 130/68; PULSE 92; RESP 18; TEMP 97.5; O2SAT 97
[2017-02-11 00:14] VITALS: BP_SYST 111; BP_SYST 115; BP_DIAS 59; BP_DIAS 61; PULSE 73; PULSE 80; RESP 16; RESP 18; TEMP 98.2; TEMP 98.8; O2SAT 96; O2SAT 98
[2017-02-11] MEDS: LORazepam 1 MG TAB PO PRN (00:15)
[2017-02-11] MEDS: SODIUM CHLOR 0.9% 1000 ML INJ 1,000 ML IV SCH (01:49)
[2017-02-11] MEDS: MORPHINE SULFATE 2 MG/ML INJ IV PUSH PRN ×2 (02:09→08:39)
[2017-02-11] MEDS: methylPREDNISolone SOD SUCC 40 MG/1 ML VIAL IV PUSH SCH (05:40)
[2017-02-11 06:11] VITALS: BP 111/73; PULSE 75; RESP 16; TEMP 98.2; O2SAT 95
[2017-02-11 07:51] VITALS: BP 127/77; PULSE 75; RESP 20; TEMP 98.9; O2SAT 97
[2017-02-11] MEDS: SUCRALFATE 1 GM/10 ML CUP PO SCH (08:29)
[2017-02-11] MEDS: PANTOPRAZOLE SOD 40 MG DELAYED RELEASE TAB PO SCH (08:30)
[2017-02-11] MEDS: MESALAMINE 250 MG CAP PO SCH (08:30)
[2017-02-11] MEDS: REMOVE OLD PATCH T-DERMAL SCH (08:30)
[2017-02-11] MEDS: NICOTINE 21 MG/24 HR PATCH T-DERMAL SCH (08:30)
[2017-02-11] MEDS: FOLIC ACID 1 MG TAB PO SCH (08:30)
[2017-02-11] MEDS: MULTIVITAMINS/MINERALS THERAPEUTIC TAB PO SCH (08:30)
[2017-02-11] MEDS: SODIUM CHLORIDE 0.9% FLUSH 10 ML FLUSH IV FLUSH SCH (08:31)
[2017-02-11] MEDS: THIAMINE HCL 100 MG TAB PO SCH (08:32)
[2017-02-11] MEDS ORDERED: PRED20 PO (09:03)
[2017-02-11] MEDS ORDERED: MESA250 PO (09:03)
[2017-02-11] MEDS ORDERED: THIA100 PO (09:03)
[2017-02-11] MEDS ORDERED: CHLO10CA5 PO (09:03)
[2017-02-11] MEDS ORDERED: NICO21DI25 T-DERMAL (09:03)
--- NOTE | 2017-02-11 16:26 | HHI.DS ---
Discharge Summary Admission Date Feb 08, 2017 at 03:26 Admitting Diagnosis gi bleed, abdominal pain, anemia (1) Exacerbation of Crohn's disease ICD Code: K50.90 - Crohn's disease, unspecified, without complications (2) Alcohol abuse ICD Code: F10.10 - Alcohol abuse, uncomplicated Status: Acute Procedures no invasive procedures. Brief History - From Admission This is a 46-year-old female history of Crohn's disease, gastric ulcers, and alcoholism who presented with bloody vomit, bloody diarrhea, abdominal pain after relapsing from alcoholism about 3 weeks ago. Patient stated that she relapsed 3 weeks ago and started drinking about 10-12 beers a day. The past few days patient had episodes of emesis that was described as bloody. She stated that it was possible subluxed. Patient then had bloody diarrhea described as bright red blood and black blood. She also had epigastric and left -sided pain. Patient stated that she felt this was all due to her alcohol still did not want to come to the ER initially but stated that symptoms worsen so she went to the ED. Patient does admit to having lightheadedness/dizziness. Deny any chest pain, shortness of breathing or palpitations. She stated that she saw Dr. Burgos and Viri Case once for her Crohn's disease. She stated that should he order a bunch of imaging studies and she did not follow through. Noted on exam that patient's abdomen was distended. Patient stated that her abdomen became distended maybe about a week ago. She stated that she did not know why this happened. All other review of system reviewed and negative. CBC/BMP: 02/10/17 1231 02/10/17 1231 Significant Findings Laboratory Tests Test 02/08/17 19:25 02/09/17 01:00 02/09/17 08:33 02/10/17 12:31 Hemoglobin 7.5 GM/DL (11.6-15.3) 8.0 GM/DL (11.6-15.3) 8.4 GM/DL (11.6-15.3) 8.1 GM/DL (11.6-15.3) Hematocrit 23.2 % (35.0-46.0) 24.1 % (35.0-46.0) 25.9 % (35.0-46.0) 25.4 % (35.0-46.0) Red Blood Count 2.41 MIL/MM3 (4.00-5.30) 2.40 MIL/MM3 (4.00-5.30) Mean Corpuscular Volume 107.4 FL (80.0-100.0) 106.1 FL (80.0-100.0) Mean Corpuscular Hemoglobin 34.9 PG (27.0-34.0) Neutrophils (%) (Auto) 92.1 % (16.0-70.0) 92.9 % (16.0-70.0) Lymphocytes (%) (Auto) 6.1 % (9.0-44.0) 4.0 % (9.0-44.0) Neutrophils # (Auto) 8.7 TH/MM3 (1.8-7.7) 15.0 TH/MM3 (1.8-7.7) Lymphocytes # (Auto) 0.6 TH/MM3 (1.0-4.8) 0.7 TH/MM3 (1.0-4.8) Blood Urea Nitrogen 4 MG/DL (7-18) 6 MG/DL (7-18) Creatinine 0.44 MG/DL (0.50-1.00) Random Glucose 120 MG/DL (74-106) 108 MG/DL (74-106) Albumin 2.3 GM/DL (3.4-5.0) 2.3 GM/DL (3.4-5.0) Calcium Level 8.2 MG/DL (8.5-10.1) 7.8 MG/DL (8.5-10.1) Aspartate Amino Transf (AST/SGOT) 14 U/L (15-37) Total Bilirubin 0.1 MG/DL (0.2-1.0) LESS THAN 0.1 MG/DL White Blood Count 16.2 TH/MM3 (4.0-11.0) Mean Corpuscular Hemoglobin Concent 31.8 % (32.0-36.0) Total Protein 6.2 GM/DL (6.4-8.2) Chloride Level 108 MEQ/L (98-107) PE at Discharge GENERAL: patient sitting up in bed. Appears comfortable. SKIN: Warm and dry. HEAD: Normocephalic. EYES: No scleral icterus. No injection or drainage. NECK: Supple, trachea midline. No JVD. CARDIOVASCULAR: Regular rate and rhythm without murmurs, gallops, or rubs. RESPIRATORY: Breath sounds equal bilaterally. No accessory muscle use. GASTROINTESTINAL: Abdomen soft, non-tender, nondistended. MUSCULOSKELETAL: No cyanosis, or edema. BACK: Nontender without obvious deformity. No CVA tenderness. Pt update on day of discharge Seen this morning around 10:30 AM. Says that abdominal discomfort continues unchanged. Denies any bowel movements over the past few days. Hospital Course 46-year-old female with alcoholism, gastric ulcers and Crohn's disease presented with GI bleed and abdominal pain //GI bleed/hematemesis/bloody diarrhea //Crohn's flare. -Positive Hemoccult stool. Hemoglobin dropped from 11.9 to 8.2. -Previous EGD showed gastric ulcers. -Continue to monitor hemoglobin, IV fluids, transfuse if patient becomes symptomatic, hemoglobin less than 7 or if hemoglobin continues to decrease. -Consult GI patient will need an endoscopy. -Continue with supportive care. = 02/09. Hemoglobin stable 8.4. GI following. Appreciate assistance. = 02/10. Labs pending. = 02/11. Discussed with gastroenterology. Patient does have history of C. difficile in September of this year, however no diarrhea at this time. CT abdomen negative. We'll discharge home with steroids, follow gastroenterology as outpatient. Appreciate GI assistance. //Abdominal pain -May be secondary due to gastric ulcers. Concerns for bleeding ulcer. -See treatment as above. = . Patient continues complaining of left lower abdominal pain. Will order CT abdomen. Discussed with GI. Appreciate assistance. //Abdominal distention //Fatty liver clinic alcohol related =no ascites. -abd ultrasound without ascites. Does show fatty liver. Follow gastroenterology as outpatient. //Alcoholism -Education given. -Continue on CIWA protocol. = Start on Librium scheduled. Discharge with taper //Crohn's disease with suspected flare GI following. Continue mesalamine, IV steroids. Appreciate assistance. = 02/10. CT abdomen pending as above //DVT prophylaxis -Contraindicated secondary to GI bleed. SCDs. Pt Condition on Discharge: Good Discharge Disposition: Discharge Home Discharge Time: > 30 minutes Discharge Instructions DIET: Follow Instructions for: Heart Healthy Diet Activities you can perform: Regular-No Restrictions Follow up Referrals: Appointment for Follow Up Gastroenterology - 2 Weeks with Julio Cesar Aguilera MD PCP Follow-up - 1 Week with Jasmynearnold Wilder PCP Follow-up New Medications: Chlordiazepoxide HCl (Chlordiazepoxide HCl) 10 Mg Capsule 10 MG PO TID for Alcohol Detox, #18 TAB Take THREE Times daily for 3 Days, then TWICE daily for 3 days, then ONCE a day for 3 Days. Nicotine (Eq Nicotine) 21 Mg/24 Hour Dis 1 PATCH T-DERMAL DAILY for tobacco for 30 Days, PATCH Thiamine HCl (Gnp Vitamin B-1) 100 Mg Tab 100 MG PO DAILY for vitamin for 30 Days, #30 TAB Continued Medications: Alprazolam (Alprazolam) 0.5 Mg Tab 0.5 MG PO TID PRN for ANXIETY, TAB 0 Refills Mesalamine ER (Pentasa) 250 Mg Caper 1000 MG PO QID for crohns for 30 Days, CAP (This prescription has been renewed) Pantoprazole (Pantoprazole) 40 Mg Tab 40 MG PO DAILY for Reflux, #30 TAB 0 Refills Prednisone (Prednisone) 20 Mg Tab 40 MG PO DAILY for crohns, #35 TAB 0 Refills (This prescription has been renewed ) Take 40 mg (2 tablets) daily for 10 days then take 20mg (1 tablet) daily x 10 days then take 10mg (1/2 tablet daily x 10 days, then discontinue Sucralfate (Sucralfate) 1 Gm Tab 1 GM PO TIDACHS for Duodenal ulcer, #90 TAB 0 Refills on empty stomach Sohan El MD Feb 11, 2017 16:26
== END 2017-02-11 10:37 | disposition home or self-care (01) | DRG 378 ==
LOC: NEPE 23:42 → INTOOBSV 02-08 03:26 → NEDA 02-08 03:26 → OBSVTOIN 02-08 03:26 → UNDOADMIN 02-08 03:39 → NEDA 02-08 03:39 → N05A 02-08 14:09
PROVIDERS: ADMIT Internal Medicine; ATTEND Internal Medicine
DX: K92.2 Gastrointestinal hemorrhage, unspecified (principal); K50.90 Crohn's disease, unspecified, without complications; K76.0 Fatty (change of) liver, not elsewhere classified; F10.10 Alcohol abuse, uncomplicated; D64.9 Anemia, unspecified; Z87.11 Personal history of peptic ulcer disease; F17.210 Nicotine dependence, cigarettes, uncomplicated
CPT/HCPCS: 74177; 76700; 80053; 81001; 82607; 82746; 82948; 83690; 85014; 85018; 85025; 85610; 85730; 86850; 86900; 86901; 93005; 96365; 96366; 96375; C9113; J2060; J2270; J2405; J2920; J7030; Q9963; Q9967

== ENCOUNTER 2017-03-09 15:57 | Inpatient (IN) | payer OTHER ==
[2017-03-09 17:31] LABS: AUTOMATED NEUTROPHIL # 5.9 TH/MM3 (1.8-7.7); BASOPHIL % 0.3 % (0.0-2.0); HEMO FLAGS DIFF FINAL; HEMOGLOBIN 9.9 GM/DL (11.6-15.3); LYMPH % 8.1 % (9.0-44.0); LYMPHOCYTE # 0.5 TH/MM3 (1.0-4.8); MEAN CELL VOLUME 89.4 FL (80.0-100.0); MEAN CORPUSCULAR HEMOGLOBIN 28.6 PG (27.0-34.0); MEAN PLATELET VOLUME 7.6 FL (7.0-11.0); MONO % 2.1 % (0.0-8.0); MONOCYTE # 0.1 TH/MM3 (0-0.9); NEUT % 89.5 % (16.0-70.0); PLATELET COUNT 700 TH/MM3 (150-450); RED BLOOD COUNT 3.46 MIL/MM3 (4.00-5.30); RED CELL DISTRIBUTION WIDTH 21.4 % (11.6-17.2); WHITE BLOOD COUNT 6.6 TH/MM3 (4.0-11.0)
[2017-03-09 17:33] LABS: BACTERIA, URINE FEW /hpf; BILIRUBIN, URINE NEG (NEG); BLOOD, URINE NEG (NEG); COMMENT (UR) CULT NOT INDICATED; CULTURE IF INDICATED CULT NOT INDICATED; GLUCOSE,URINE NEG (NEG); HYALINE CAST, URINE 7 /lpf (RARE); KETONE, URINE TRACE mg/dL (NEG); NITRITE,URINE NEG (NEG); PH, URINE 5.5 (5.0-8.5); SQUAMOUS EPITHELIAL CELL URINE 1 /hpf (0-5); URINE COLOR YELLOW (YELLW/STRAW); URINE LEUKOCYTE ESTERASE NEG (NEG)
[2017-03-09 17:41] LABS: APTT (PATIENT) 41.1 SEC (24.3-30.1); PROTHROMBIN TIME - PATIENT 69.1 SEC (9.8-11.6)
[2017-03-09 17:52] LABS: ALBUMIN 3.3 GM/DL (3.4-5.0); ALKALINE PHOSPHATASE 119 U/L (45-117); ALT (GPT) 11 U/L (10-53); ANION GAP 7 MEQ/L (5-15); AST (GOT) 17 U/L (15-37); BICARBONATE 18.9 MEQ/L (21.0-32.0); BLOOD UREA NITROGEN 11 MG/DL (7-18); CALCIUM 7.6 MG/DL (8.5-10.1); CHLORIDE 106 MEQ/L (98-107); CREATININE 0.73 MG/DL (0.50-1.00); GLOMERULAR FILTRATION RATE 85 ML/MIN (>89); GLUCOSE,RANDOM 161 MG/DL (74-106); MAGNESIUM 1.8 MG/DL (1.5-2.5); SODIUM (NA) 132 MEQ/L (136-145); TOTAL BILIRUBIN ADULT 0.2 MG/DL (0.2-1.0); TOTAL PROTEIN 7.8 GM/DL (6.4-8.2); TROPONIN I 0.02 NG/ML (0.02-0.05)
[2017-03-09 17:59] LABS: CREATINE KINASE 87 U/L (26-192)
[2017-03-09 18:00] LABS: POTASSIUM 2.5 MEQ/L (3.5-5.1)
[2017-03-09 18:09] LABS: INTERNATIONAL NORMALIZED RATIO 6.9 RATIO
[2017-03-09] MEDS: POTASSIUM CHLOR 20 MEQ PREMIX 100 ML IV (19:06)
[2017-03-09] MEDS: ONDANSETRON HCL 4 MG/2 ML VIAL IV PUSH (19:06)
[2017-03-09] MEDS: SODIUM CHLOR 0.9% 1000 ML INJ 1,000 ML IV (19:17)
[2017-03-09] MEDS ORDERED: NALOXONE HCL 0.4 MG/ML AMP IV PUSH (19:45)
[2017-03-09] MEDS ORDERED: SODIUM CHLORIDE 0.9% FLUSH 10 ML FLUSH IV FLUSH (19:45)
[2017-03-09] MEDS ORDERED: LORazepam 2 MG TAB PO (20:15)
[2017-03-09] MEDS ORDERED: FLUMAZENIL 0.5 MG/5 ML VIAL IV PUSH (20:15)
[2017-03-09] MEDS ORDERED: LORazepam 2 MG/ML VIAL IV PUSH ×4 (20:15)
[2017-03-09] MEDS: POTASSIUM CHLORIDE 20 MEQ CONTROLLED RELEASE TAB PO (20:31)
[2017-03-09] MEDS: ALPRAZolam 0.5 MG TAB PO (20:32)
[2017-03-09] MEDS: FOLIC ACID 1 MG TAB PO (20:32)
[2017-03-09] MEDS: THIAMINE HCL 100 MG TAB PO (20:34)
[2017-03-09] MEDS: SODIUM CHLORIDE 0.9% FLUSH 10 ML FLUSH IV FLUSH ×2 (21:08→21:09)
[2017-03-10] MEDS: LORazepam 1 MG TAB PO (00:13)
[2017-03-10] MEDS: TEMAZEPAM 15 MG CAP PO (01:25)
[2017-03-10] MEDS ORDERED: ACETAMINOPHEN 325 MG TAB PO (01:30)
[2017-03-10 01:33] LABS: PROTHROMBIN TIME - PATIENT 90.4 SEC (9.8-11.6)
[2017-03-10 01:48] LABS: ANION GAP 5 MEQ/L (5-15); BICARBONATE 19.9 MEQ/L (21.0-32.0); BLOOD UREA NITROGEN 13 MG/DL (7-18); CALCIUM 7.2 MG/DL (8.5-10.1); CHLORIDE 107 MEQ/L (98-107); CREATININE 0.56 MG/DL (0.50-1.00); GLOMERULAR FILTRATION RATE 116 ML/MIN (>89); GLUCOSE,RANDOM 98 MG/DL (74-106); MAGNESIUM 1.7 MG/DL (1.5-2.5); POTASSIUM 3.3 MEQ/L (3.5-5.1); SODIUM (NA) 132 MEQ/L (136-145)
[2017-03-10 02:14] LABS: CALCIUM-PROTEIN CORRECTED 7.3 MG/DL (8.5-10.1)
[2017-03-10 02:16] LABS: INTERNATIONAL NORMALIZED RATIO 9.1 RATIO
[2017-03-10] MEDS: PHYTONADIONE 5 MG TAB PO (03:00)
[2017-03-10] MEDS: POTASSIUM CHLORIDE 20 MEQ CONTROLLED RELEASE TAB PO (03:25)
[2017-03-10] MEDS: POTASSIUM CHLOR 20 MEQ PREMIX 100 ML IV ×2 (03:26→05:43)
[2017-03-10] MEDS: CALCIUM GLUCONATE 10% 1 GM/10 ML VIAL IV PUSH (03:30)
[2017-03-10] MEDS: SODIUM CHLORIDE 0.9% FLUSH 10 ML FLUSH IV FLUSH ×3 (03:32→20:40)
[2017-03-10] MEDS: PHYTONADIONE 5 MG/SWFI 5 ML ORAL SYR PO ×3 (03:52→20:37)
[2017-03-10 05:15] LABS: PROTHROMBIN TIME - PATIENT 100.9 SEC (9.8-11.6)
[2017-03-10 05:22] LABS: ALKALINE PHOSPHATASE 100 U/L (45-117); TOTAL BILIRUBIN ADULT 0.3 MG/DL (0.2-1.0); TOTAL PROTEIN 6.5 GM/DL (6.4-8.2)
[2017-03-10 05:23] LABS: INTERNATIONAL NORMALIZED RATIO 10.1 RATIO
[2017-03-10 05:32] LABS: ALBUMIN 2.9 GM/DL (3.4-5.0); ALT (GPT) 12 U/L (10-53); ANION GAP 7 MEQ/L (5-15); AST (GOT) 25 U/L (15-37); BLOOD UREA NITROGEN 12 MG/DL (7-18); CALCIUM 7.7 MG/DL (8.5-10.1); CHLORIDE 107 MEQ/L (98-107); CREATININE 0.56 MG/DL (0.50-1.00); GLOMERULAR FILTRATION RATE 116 ML/MIN (>89); GLUCOSE,RANDOM 86 MG/DL (74-106); POTASSIUM 3.8 MEQ/L (3.5-5.1); SODIUM (NA) 133 MEQ/L (136-145)
[2017-03-10] MEDS: CALCIUM CARBONATE 1.25 GM (CA 500 MG) TAB PO ×3 (07:01→20:36)
[2017-03-10] MEDS: MAGNESIUM OXIDE 400 MG TAB PO ×3 (07:01→20:36)
[2017-03-10 07:05] LABS: FIBRINOGEN 375 mg/dL (227-377)
[2017-03-10 07:13] LABS: BASOPHIL # 0.1 TH/MM3 (0-0.2); BASOPHIL % 0.3 % (0.0-2.0); HEMATOCRIT 27.6 % (35.0-46.0); HEMOGLOBIN 8.3 GM/DL (11.6-15.3); LYMPH % 15.5 % (9.0-44.0); LYMPHOCYTE # 3.2 TH/MM3 (1.0-4.8); MEAN CELL VOLUME 91.4 FL (80.0-100.0); MEAN CORPUSCULAR HEMOGLOBIN 27.4 PG (27.0-34.0); MEAN PLATELET VOLUME 7.6 FL (7.0-11.0); MONO % 5.4 % (0.0-8.0); MONOCYTE # 1.1 TH/MM3 (0-0.9); NEUT % 78.8 % (16.0-70.0); PLATELET COUNT 458 TH/MM3 (150-450); RED BLOOD COUNT 3.03 MIL/MM3 (4.00-5.30); RED CELL DISTRIBUTION WIDTH 20.8 % (11.6-17.2); WHITE BLOOD COUNT 20.4 TH/MM3 (4.0-11.0)
[2017-03-10 07:16] LABS: HEMO FLAGS AUTO DIFF
[2017-03-10] MEDS: SUCRALFATE 1 GM TAB PO ×4 (08:00→20:36)
[2017-03-10] MEDS ORDERED: PHYTONADIONE 5 MG TAB PO (09:00)
[2017-03-10] MEDS: FOLIC ACID 1 MG TAB PO (09:06)
[2017-03-10] MEDS: ALPRAZolam 1 MG TAB PO ×2 (09:06→20:35)
[2017-03-10] MEDS: THIAMINE HCL 100 MG TAB PO (09:07)
[2017-03-10] MEDS: PANTOPRAZOLE SOD 40 MG DELAYED RELEASE TAB PO (09:07)
[2017-03-10 10:37] LABS: FFP COMMENT 1 1
[2017-03-10 10:53] LABS: HEPATITIS A AB IGM NEGATIVE (NEGATIVE); HEPATITIS B CORE AB IGM NEGATIVE (NEGATIVE); HEPATITIS B SURFACE ANTIGEN NEGATIVE (NEGATIVE); HEPATITIS C AB IgG NEGATIVE (NEGATIVE)
[2017-03-10 10:59] LABS: FERRITIN 12 NG/ML (8-252)
[2017-03-10 11:05] LABS: % SATURATION IRON PROFILE 4.5 % (20-50); IRON (FE) 17 MCG/DL (50-170); TOTAL IRON BINDING CAPACITY 378 MCG/DL (250-450); TRANSFERRIN IRON PROFILE 270 MG/DL (200-360)
[2017-03-10] MEDS: DIATRIZOATE MEGLUM/DIATRIZOATE SOD 9 ML CUP PO (11:44)
[2017-03-10] MEDS: GADODIAMIDE PF 287 MG/ML 5 ML VIAL (for RAD MRI) IVCONTRAST (13:59)
[2017-03-10] MEDS ORDERED: methylPREDNISolone SOD SUCC 40 MG/1 ML VIAL IV PUSH (14:00)
[2017-03-10] MEDS: IOHEXOL 350 MG/ML 10 ML VIAL (for RAD DIAG) IVCONTRAST (15:28)
[2017-03-10 16:44] LABS: AMMONIA 11 MCMOL/L (11-32)
[2017-03-10] MEDS: MESALAMINE 250 MG CAP PO ×3 (18:00→20:36)
[2017-03-10] MEDS: CYANOCOBALAMIN 1000 MCG/ML VIAL SQ (20:37)
[2017-03-10] MEDS: IRON SUCROSE INJ 100 MG in SODIUM CHLORIDE 0.9% INJ 100 ML IV (20:52)
[2017-03-11 08:11] LABS: AUTOMATED NEUTROPHIL # 14.1 TH/MM3 (1.8-7.7); BASOPHIL # 0.1 TH/MM3 (0-0.2); BASOPHIL % 0.4 % (0.0-2.0); HEMATOCRIT 24.2 % (35.0-46.0); HEMO FLAGS DIFF FINAL; HEMOGLOBIN 7.6 GM/DL (11.6-15.3); LYMPH % 8.4 % (9.0-44.0); LYMPHOCYTE # 1.3 TH/MM3 (1.0-4.8); MEAN CELL VOLUME 88.7 FL (80.0-100.0); MEAN CORPUSCULAR HEMOGLOBIN 27.8 PG (27.0-34.0); MEAN CORPUSCULAR HGB CONC 31.3 % (32.0-36.0); MEAN PLATELET VOLUME 7.1 FL (7.0-11.0); MONOCYTE # 0.5 TH/MM3 (0-0.9); NEUT % 88.2 % (16.0-70.0); PLATELET COUNT 397 TH/MM3 (150-450); RED BLOOD COUNT 2.73 MIL/MM3 (4.00-5.30)
[2017-03-11 08:17] LABS: INTERNATIONAL NORMALIZED RATIO 1.4 RATIO; PROTHROMBIN TIME - PATIENT 13.9 SEC (9.8-11.6)
[2017-03-11] MEDS: ALPRAZolam 1 MG TAB PO ×2 (08:17→21:53)
[2017-03-11] MEDS: THIAMINE HCL 100 MG TAB PO (08:17)
[2017-03-11] MEDS: MESALAMINE 250 MG CAP PO ×4 (08:17→21:52)
[2017-03-11] MEDS: PANTOPRAZOLE SOD 40 MG DELAYED RELEASE TAB PO (08:17)
[2017-03-11] MEDS: CALCIUM CARBONATE 1.25 GM (CA 500 MG) TAB PO ×2 (08:17→21:52)
[2017-03-11] MEDS: FOLIC ACID 1 MG TAB PO (08:17)
[2017-03-11] MEDS: SUCRALFATE 1 GM TAB PO ×4 (08:17→21:52)
[2017-03-11] MEDS: MAGNESIUM OXIDE 400 MG TAB PO ×2 (08:17→21:52)
[2017-03-11] MEDS: SODIUM CHLORIDE 0.9% FLUSH 10 ML FLUSH IV FLUSH ×2 (08:18→21:53)
[2017-03-11 08:22] LABS: C-REACTIVE PROTEIN 8.22 MG/DL (0.00-0.30)
[2017-03-11 08:27] LABS: RETIC # 49.8 MIL/L (20.0-150.0); RETIC % 1.9 % (0.4-3.0)
[2017-03-11 08:30] LABS: REVIEW FLAG FINAL
[2017-03-11 08:33] LABS: ANION GAP 7 MEQ/L (5-15); BICARBONATE 22.6 MEQ/L (21.0-32.0); BLOOD UREA NITROGEN 8 MG/DL (7-18); CALCIUM 8.1 MG/DL (8.5-10.1); CHLORIDE 106 MEQ/L (98-107); CREATININE 0.47 MG/DL (0.50-1.00); GLOMERULAR FILTRATION RATE 142 ML/MIN (>89); GLUCOSE,RANDOM 72 MG/DL (74-106); LDH SERUM 296 U/L (84-246); SODIUM (NA) 136 MEQ/L (136-145)
[2017-03-11 08:38] LABS: POTASSIUM 2.7 MEQ/L (3.5-5.1)
[2017-03-11 08:59] LABS: WESTERGREN SEDIMENTATION RATE 56 mm/hr (0-20)
[2017-03-11 10:59] LABS: INHIB SCRN PT PATIENT 13.5 SEC (9.8-11.6); INHIBITOR SCRN-PT CONTROL 11.3 SEC
[2017-03-11 11:00] LABS: INHIBITOR SCRN PT NORMAL 10.4 SEC; PT 1PT:4NL 10.6 SEC (9.8-11.6)
[2017-03-11 11:01] LABS: INHIBITOR SCREEN-APTT PATIENT 38.8 SEC (24.3-30.1); INHIBITOR SCRN-APTT CONTROL 25.3 SEC; PT NORM 1 HR-37C 10.7 SEC
[2017-03-11 11:02] LABS: APTT 1PT:1NL 28.7 SEC (24.3-30.1); APTT 1PT:4NL 26.1 SEC (24.3-30.1); APTT 4PT:1NL 33.9 SEC (24.3-30.1); APTT NORM 1 HR-37C ND SEC; INHIBITOR SCRN APTT NORMAL 24.7 SEC (24.3-30.1)
[2017-03-11] MEDS: POTASSIUM CHLORIDE 20 MEQ CONTROLLED RELEASE TAB PO ×3 (11:35→16:13)
[2017-03-11] MEDS: PNEUMOCOCCAL POLYVALENT INJ 25 MCG/0.5 ML SYR IM (11:38)
[2017-03-11] MEDS: PHYTONADIONE 5 MG/SWFI 5 ML ORAL SYR PO (11:52)
[2017-03-11] MEDS: INFLUENZA VIRUS VACCINE (QUADRIVALENT) 0.5 ML SYR IM (11:55)
[2017-03-11 20:32] LABS: HEMOGLOBIN 7.7 GM/DL (11.6-15.3)
[2017-03-11 20:32] LABS: HEMATOCRIT 24.3 % (35.0-46.0); REVIEW FLAG FINAL
[2017-03-11 21:14] LABS: POTASSIUM 3.7 MEQ/L (3.5-5.1)
[2017-03-11] MEDS: IRON SUCROSE INJ 100 MG in SODIUM CHLORIDE 0.9% INJ 100 ML IV (21:53)
[2017-03-11] MEDS: traMADol HCL 50 MG TAB PO (21:53)
[2017-03-12 07:57] LABS: AUTOMATED NEUTROPHIL # 7.1 TH/MM3 (1.8-7.7); BASOPHIL % 0.4 % (0.0-2.0); EOSINOPHIL # 0.1 TH/MM3 (0-0.4); EOSINOPHIL % 1.2 % (0.0-4.0); HEMO FLAGS DIFF FINAL; HEMOGLOBIN 7.3 GM/DL (11.6-15.3); LYMPHOCYTE # 1.4 TH/MM3 (1.0-4.8); MEAN CELL VOLUME 88.9 FL (80.0-100.0); MEAN CORPUSCULAR HEMOGLOBIN 28.1 PG (27.0-34.0); MEAN CORPUSCULAR HGB CONC 31.6 % (32.0-36.0); MONO % 6.1 % (0.0-8.0); MONOCYTE # 0.6 TH/MM3 (0-0.9); NEUT % 77.3 % (16.0-70.0); PLATELET COUNT 362 TH/MM3 (150-450); RED BLOOD COUNT 2.59 MIL/MM3 (4.00-5.30); RED CELL DISTRIBUTION WIDTH 21.6 % (11.6-17.2); WHITE BLOOD COUNT 9.2 TH/MM3 (4.0-11.0)
[2017-03-12 08:08] LABS: INTERNATIONAL NORMALIZED RATIO 1.1 RATIO; PROTHROMBIN TIME - PATIENT 10.7 SEC (9.8-11.6)
[2017-03-12] MEDS: PHYTONADIONE 5 MG/SWFI 5 ML ORAL SYR PO (08:23)
[2017-03-12] MEDS: traMADol HCL 50 MG TAB PO ×3 (08:23→21:55)
[2017-03-12] MEDS: FOLIC ACID 1 MG TAB PO (08:24)
[2017-03-12] MEDS: MESALAMINE 250 MG CAP PO ×4 (08:24→21:54)
[2017-03-12] MEDS: PANTOPRAZOLE SOD 40 MG DELAYED RELEASE TAB PO (08:24)
[2017-03-12] MEDS: CALCIUM CARBONATE 1.25 GM (CA 500 MG) TAB PO ×2 (08:24→21:53)
[2017-03-12] MEDS: SUCRALFATE 1 GM TAB PO ×4 (08:24→21:54)
[2017-03-12] MEDS: MAGNESIUM OXIDE 400 MG TAB PO ×2 (08:24→21:54)
[2017-03-12] MEDS: SODIUM CHLORIDE 0.9% FLUSH 10 ML FLUSH IV FLUSH ×2 (08:24→21:00)
[2017-03-12] MEDS: ALPRAZolam 1 MG TAB PO ×2 (08:24→21:54)
[2017-03-12] MEDS: THIAMINE HCL 100 MG TAB PO (08:24)
[2017-03-12] MEDS: ONDANSETRON ODT 4 MG TAB PO ×2 (09:52→18:21)
[2017-03-12 15:10] LABS: C. DIFF EPI 027 PRESUMPTIVE NEGATIVE (NEGATIVE)
[2017-03-12 15:31] LABS: C. DIFF TOXIN PCR POSITIVE (NEGATIVE)
[2017-03-12] MEDS: MORPHINE SULFATE 2 MG/ML INJ IV (17:20)
[2017-03-12] MEDS: metroNIDAZOLE 500 MG TAB PO (21:54)
[2017-03-13] MEDS: ONDANSETRON ODT 4 MG TAB PO ×3 (06:16→18:49)
[2017-03-13] MEDS: metroNIDAZOLE 500 MG TAB PO ×3 (06:16→22:15)
[2017-03-13] MEDS: traMADol HCL 50 MG TAB PO ×3 (06:44→18:50)
[2017-03-13 06:46] LABS: HEMATOCRIT 23.7 % (35.0-46.0); HEMOGLOBIN 7.7 GM/DL (11.6-15.3); MEAN CELL VOLUME 90.6 FL (80.0-100.0); MEAN CORPUSCULAR HEMOGLOBIN 29.4 PG (27.0-34.0); MEAN CORPUSCULAR HGB CONC 32.4 % (32.0-36.0); MEAN PLATELET VOLUME 7.5 FL (7.0-11.0); PLATELET COUNT 369 TH/MM3 (150-450); RED BLOOD COUNT 2.61 MIL/MM3 (4.00-5.30); RED CELL DISTRIBUTION WIDTH 21.6 % (11.6-17.2)
[2017-03-13 06:47] LABS: PROTHROMBIN TIME - PATIENT 10.5 SEC (9.8-11.6)
[2017-03-13 06:56] LABS: HEMO FLAGS AUTO DIFF
[2017-03-13 07:03] LABS: ANION GAP 6 MEQ/L (5-15); BLOOD UREA NITROGEN 7 MG/DL (7-18); CALCIUM 8.2 MG/DL (8.5-10.1); CHLORIDE 99 MEQ/L (98-107); CREATININE 0.42 MG/DL (0.50-1.00); GLOMERULAR FILTRATION RATE 162 ML/MIN (>89); GLUCOSE,RANDOM 70 MG/DL (74-106); SODIUM (NA) 135 MEQ/L (136-145)
[2017-03-13] MEDS: PHYTONADIONE 5 MG/SWFI 5 ML ORAL SYR PO (08:01)
[2017-03-13] MEDS: THIAMINE HCL 100 MG TAB PO (08:01)
[2017-03-13] MEDS: MAGNESIUM OXIDE 400 MG TAB PO ×2 (08:01→22:14)
[2017-03-13] MEDS: PANTOPRAZOLE SOD 40 MG DELAYED RELEASE TAB PO (08:01)
[2017-03-13] MEDS: CALCIUM CARBONATE 1.25 GM (CA 500 MG) TAB PO ×2 (08:01→22:14)
[2017-03-13] MEDS: MESALAMINE 250 MG CAP PO ×4 (08:01→22:14)
[2017-03-13] MEDS: SODIUM CHLORIDE 0.9% FLUSH 10 ML FLUSH IV FLUSH ×2 (08:02→22:15)
[2017-03-13] MEDS: FOLIC ACID 1 MG TAB PO (08:02)
[2017-03-13] MEDS: SUCRALFATE 1 GM TAB PO ×4 (08:02→22:15)
[2017-03-13] MEDS: ALPRAZolam 1 MG TAB PO ×2 (08:12→22:15)
[2017-03-13 10:07] LABS: BASOPHILS 1 % (0-2); EOSINOPHILS 4 % (0-4); LYMPHOCYTES 21 % (9-44); MONOCYTES 2 % (0-8); NEUTROPHIL # MANUAL DIFF 6.5 TH/MM3 (1.8-7.7); PLATELET ESTIMATE SMEAR NORMAL (NORMAL); PLATELET MORPHOLOGY NORMAL (NORMAL); POLYS (SEG NEUTROPHILS) 72 % (16-70); SCAN/DIFF FINAL DIFF MANUAL; WBC DIFF SAMPLE 100
[2017-03-13] MEDS: POTASSIUM CHLORIDE 10 MEQ CONTROLLED RELEASE TAB PO ×3 (10:13→17:32)
[2017-03-13] MEDS: MORPHINE SULFATE 2 MG/ML INJ IV ×2 (15:32→19:48)
[2017-03-14] MEDS: ONDANSETRON ODT 4 MG TAB PO (01:19)
[2017-03-14] MEDS: traMADol HCL 50 MG TAB PO ×3 (01:19→21:38)
[2017-03-14] MEDS: MORPHINE SULFATE 2 MG/ML INJ IV ×5 (02:38→22:57)
[2017-03-14] MEDS: metroNIDAZOLE 500 MG TAB PO ×3 (06:52→21:39)
[2017-03-14 07:47] LABS: AUTOMATED NEUTROPHIL # 3.6 TH/MM3 (1.8-7.7); BASOPHIL % 0.8 % (0.0-2.0); EOSINOPHIL # 0.3 TH/MM3 (0-0.4); EOSINOPHIL % 5.3 % (0.0-4.0); HEMATOCRIT 25.6 % (35.0-46.0); HEMO FLAGS DIFF FINAL; HEMOGLOBIN 8.3 GM/DL (11.6-15.3); LYMPH % 26.4 % (9.0-44.0); LYMPHOCYTE # 1.6 TH/MM3 (1.0-4.8); MEAN CELL VOLUME 90.1 FL (80.0-100.0); MEAN CORPUSCULAR HEMOGLOBIN 29.2 PG (27.0-34.0); MEAN CORPUSCULAR HGB CONC 32.5 % (32.0-36.0); MEAN PLATELET VOLUME 6.9 FL (7.0-11.0); MONO % 7.7 % (0.0-8.0); MONOCYTE # 0.5 TH/MM3 (0-0.9); NEUT % 59.8 % (16.0-70.0); PLATELET COUNT 355 TH/MM3 (150-450); RED BLOOD COUNT 2.84 MIL/MM3 (4.00-5.30); RED CELL DISTRIBUTION WIDTH 21.9 % (11.6-17.2)
[2017-03-14 09:00] LABS: BLOOD UREA NITROGEN 4 MG/DL (7-18); CREATININE 0.43 MG/DL (0.50-1.00); GLOMERULAR FILTRATION RATE 157 ML/MIN (>89)
[2017-03-14] MEDS: MAGNESIUM OXIDE 400 MG TAB PO ×2 (09:00→21:39)
[2017-03-14] MEDS: MESALAMINE 250 MG CAP PO ×4 (09:00→21:39)
[2017-03-14] MEDS: CALCIUM CARBONATE 1.25 GM (CA 500 MG) TAB PO ×2 (09:00→21:39)
[2017-03-14] MEDS: PANTOPRAZOLE SOD 40 MG DELAYED RELEASE TAB PO (09:00)
[2017-03-14] MEDS: SODIUM CHLORIDE 0.9% FLUSH 10 ML FLUSH IV FLUSH ×3 (09:00→22:57)
[2017-03-14] MEDS: PHYTONADIONE 5 MG/SWFI 5 ML ORAL SYR PO (09:00)
[2017-03-14] MEDS: FOLIC ACID 1 MG TAB PO (09:00)
[2017-03-14 09:02] LABS: ANION GAP 7 MEQ/L (5-15); BICARBONATE 29.1 MEQ/L (21.0-32.0); CALCIUM 7.8 MG/DL (8.5-10.1); CHLORIDE 102 MEQ/L (98-107); GLUCOSE,RANDOM 77 MG/DL (74-106); POTASSIUM 3.6 MEQ/L (3.5-5.1); SODIUM (NA) 138 MEQ/L (136-145)
[2017-03-14] MEDS: THIAMINE HCL 100 MG TAB PO (09:22)
[2017-03-14] MEDS: SUCRALFATE 1 GM TAB PO ×4 (09:22→21:39)
[2017-03-14] MEDS: ALPRAZolam 1 MG TAB PO ×2 (13:05→21:41)
[2017-03-15] MEDS: traMADol HCL 50 MG TAB PO ×4 (03:14→21:28)
[2017-03-15] MEDS: metroNIDAZOLE 500 MG TAB PO ×3 (04:48→21:28)
[2017-03-15] MEDS: SODIUM CHLORIDE 0.9% FLUSH 10 ML FLUSH IV FLUSH ×4 (04:49→22:37)
[2017-03-15] MEDS: MORPHINE SULFATE 2 MG/ML INJ IV ×4 (04:49→22:37)
[2017-03-15] MEDS: MESALAMINE 250 MG CAP PO ×4 (08:19→21:28)
[2017-03-15] MEDS: PANTOPRAZOLE SOD 40 MG DELAYED RELEASE TAB PO (08:19)
[2017-03-15] MEDS: THIAMINE HCL 100 MG TAB PO (08:20)
[2017-03-15] MEDS: CALCIUM CARBONATE 1.25 GM (CA 500 MG) TAB PO ×2 (08:20→21:28)
[2017-03-15] MEDS: SUCRALFATE 1 GM TAB PO ×4 (08:20→21:28)
[2017-03-15] MEDS: PHYTONADIONE 5 MG/SWFI 5 ML ORAL SYR PO (08:20)
[2017-03-15] MEDS: MAGNESIUM OXIDE 400 MG TAB PO ×2 (08:20→21:28)
[2017-03-15] MEDS: ALPRAZolam 1 MG TAB PO ×2 (11:46→21:28)
[2017-03-15 15:52] LABS: MYELOPEROXIDASE LESS THAN 1.0 AI (<1.0); PROTEINASE-3 LESS THAN 1.0 AI (<1.0)
[2017-03-16] MEDS: metroNIDAZOLE 500 MG TAB PO (05:34)
[2017-03-16] MEDS: traMADol HCL 50 MG TAB PO (05:34)
[2017-03-16] MEDS: SODIUM CHLORIDE 0.9% FLUSH 10 ML FLUSH IV FLUSH (07:25)
[2017-03-16] MEDS: PANTOPRAZOLE SOD 40 MG DELAYED RELEASE TAB PO (07:59)
[2017-03-16] MEDS: SUCRALFATE 1 GM TAB PO (07:59)
[2017-03-16] MEDS: MESALAMINE 250 MG CAP PO (07:59)
[2017-03-16] MEDS: ALPRAZolam 1 MG TAB PO (07:59)
[2017-03-16] MEDS: PHYTONADIONE 5 MG/SWFI 5 ML ORAL SYR PO (08:00)
[2017-03-16] MEDS: THIAMINE HCL 100 MG TAB PO (08:00)
[2017-03-16] MEDS: MAGNESIUM OXIDE 400 MG TAB PO (08:00)
[2017-03-16] MEDS: MORPHINE SULFATE 2 MG/ML INJ IV (08:00)
[2017-03-16] MEDS: CALCIUM CARBONATE 1.25 GM (CA 500 MG) TAB PO (08:00)
== END 2017-03-16 11:09 | disposition home or self-care (01) | DRG 372 ==
LOC: NEPE 15:57 → NEDA 20:05 → N04A 22:25
PROVIDERS: Surgery
PROC: 30233K1 Transfusion of Nonautologous Frozen Plasma into Peripheral Vein, Percutaneous Approach (ICD-10-PCS; principal; 2017-03-10)
DX: A04.72 Enterocolitis due to Clostridium difficile, not specified as recurrent (principal); D68.9 Coagulation defect, unspecified; K50.90 Crohn's disease, unspecified, without complications; E55.9 Vitamin D deficiency, unspecified; F17.210 Nicotine dependence, cigarettes, uncomplicated; D50.9 Iron deficiency anemia, unspecified; E87.6 Hypokalemia; D53.9 Nutritional anemia, unspecified; E78.00 Pure hypercholesterolemia, unspecified; H91.21 Sudden idiopathic hearing loss, right ear; K21.9 Gastro-esophageal reflux disease without esophagitis; K76.9 Liver disease, unspecified; E03.9 Hypothyroidism, unspecified; F32.9 Major depressive disorder, single episode, unspecified; F41.9 Anxiety disorder, unspecified; R51 Headache; Z87.11 Personal history of peptic ulcer disease; Z23 Encounter for immunization
CPT/HCPCS: 36430; 70450; 70544; 70553; 71046; 74177; 80048; 80053; 80074; 81001; 82140; 82272; 82306; 82550; 82728; 83540; 83550; 83615; 83735; 84132; 84155; 84484; 85007; 85014; 85018; 85025; 85027; 85044; 85335; 85384; 85610; 85652; 85730; 86021; 86021-59; 86140; 86850; 86900; 86901; 86927; 87040; 87493; 87804; 87804-59; 90686; 90732; 93005; 96365; 96375; 97110-GP; 97116-GP; 97162-GP; 99285-25

== ENCOUNTER 2017-04-30 17:04 | Emergency (ER) | payer OTHER ==
[~2017-04-30] VITALS: Ht 162.6 cm; Wt 60.0 kg
[~2017-04-30 17:04] MED LIST changes: +CALC500 PO; +CHOL5000 PO; +FERR325T18 PO; +GETGO ROLLING W1 MI1; +METR-1 PO; -PRED20 PO; +THIA100 PO; +TRAM50 PO
[2017-04-30 17:11] VITALS: BP 108/85; PULSE 140; RESP 18; TEMP 98.5; O2SAT 98
[2017-04-30] MEDS ORDERED: SODIUM CHLOR 0.9% 1000 ML INJ 1,000 ML IV SCH (17:31)
[2017-04-30 17:33] VITALS: RESP 17; O2SAT 99
[2017-04-30] MEDS ORDERED: PANTOPRAZOLE SODIUM 40 MG VIAL IVP ONE (17:45)
[2017-04-30] MEDS ORDERED: SODIUM CHLORIDE 0.9% FLUSH 10 ML FLUSH IV FLUSH PRN (17:45)
[2017-04-30] MEDS ORDERED: ONDANSETRON HCL 4 MG/2 ML VIAL IVP ONE (17:45)
[2017-04-30] MEDS ORDERED: MORPHINE SULFATE 4 MG/ML INJ IV PUSH ONE (17:45)
--- NOTE | 2017-04-30 17:45 | PD ---
HPI Chief Complaint: General Weakness Time Seen by Provider: 17:30 Travel History International Travel<30 days: No Contact w/Intl Traveler<30days: No Traveled to known affect area: No History of Present Illness HPI Patient gives a 2 day history of worsening abdominal pain, epigastrium region becoming generalized, rates it a 8 out of 10, associated with nausea, and some vomiting but without diarrhea. This pain feels very much like her previous time when she was diagnosed with ulcers. No alleviating or aggravating factors. Patient denies any associated factors such as fever, rash, headache, chest pain, back pain, diarrhea, runny nose, sore throat, or cough. No known drug allergies Past medical history significant for hypercholesterolemia, migraine, Crohn's, hiatal hernia, ulcer, GERD, C. difficile, tubal ligation, anxiety, smoking, caffeine use, alcohol use. PFSH Past Medical History Hx Anticoagulant Therapy: No Arthritis: No Asthma: No Blood Disorders: No Anxiety: Yes Depression: No Heart Rhythm Problems: No Cancer: No Cardiac Catheterization: No Cardiovascular Problems: No High Cholesterol: Yes Chemotherapy: No Chest Pain: No Congestive Heart Failure: No COPD: No Cerebrovascular Accident: No Diabetes: No Diminished Hearing: No Endocrine: No Gastrointestinal Disorders: Yes (GASTRITIS, chrons) GERD: Yes Genitourinary: No Headaches: Yes Hiatal Hernia: Yes Hypertension: No Immune Disorder: No Implanted Vascular Access Dvce: Yes Kidney Stones: No Musculoskeletal: No Neurologic: No Psychiatric: Yes (anxiety) Respiratory: Yes Migraines: Yes Renal Failure: No Seizures: No Sleep Apnea: No Thyroid Disease: Yes (HYPO) Ulcer: Yes Tetanus Vaccination: < 5 Years Influenza Vaccination: Yes ?: Not Menopausal: Yes : 4 Para: 4 Tubal Ligation: Yes (2009) Past Surgical History Abdominal Surgery: No Body Medical Devices: jaw repair Cardiac Surgery: No Coronary Artery Bypass Graft: No Ear Surgery: No Endocrine Surgery: No Eye Surgery: No Genitourinary Surgery: No Gynecologic Surgery: No Hysterectomy: No Mastectomy: Yes (LT LUMPECTOMY NON-CANCER) Oral Surgery: Yes (MANDIBLE REPAIR) Thoracic Surgery: No Other Surgery: Yes (LT LUMPECTOMY NON-CANCER) Family History Family Myocardial Infarction: Yes (FATHER AND GRANDFATHER HAD GARCIA'S.) Social History Alcohol Use: No Tobacco Use: Yes (1 PPD) Substance Use: No Allergies-Medications (Allergen,Severity, Reaction): Coded Allergies: No Known Allergies (Verified Allergy, Unknown, 04/30/17) Reported Meds & Prescriptions Reported Meds & Active Scripts Active Alprazolam 0.5 Mg Tab 1 Mg PO BID PRN Reported Sucralfate 1 Gm Tab 1 Gm PO TIDACHS on empty stomach Pantoprazole (Pantoprazole Sodium) 40 Mg Tab 40 Mg PO DAILY Review of Systems General / Constitutional: No: Fever Eyes: No: Visual changes HENT: No: Headaches Cardiovascular: No: Chest Pain or Discomfort Respiratory: No: Shortness of Breath Gastrointestinal: Positive: Nausea, Abdominal Pain Genitourinary: No: Dysuria Musculoskeletal: No: Pain Skin: No Rash Neurologic: No: Weakness Psychiatric: No: Depression Endocrine: No: Polydipsia Hematologic/Lymphatic: No: Easy Bruising Physical Exam Narrative GENERAL: SKIN: Warm and dry. HEAD: Atraumatic. Normocephalic. EYES: Pupils equal and round. No scleral icterus. No injection or drainage. ENT: No nasal bleeding or discharge. Mucous membranes pink and moist. NECK: Trachea midline. No JVD. CARDIOVASCULAR: Regular rate and rhythm. RESPIRATORY: No accessory muscle use. Clear to auscultation. Breath sounds equal bilaterally. GASTROINTESTINAL: Abdomen soft, MILD TTP OVER EPIG, nondistended. MUSCULOSKELETAL: Extremities without clubbing, cyanosis, or edema. No obvious deformities. NEUROLOGICAL: Awake and alert. No obvious cranial nerve deficits. Motor grossly within normal limits. Five out of 5 muscle strength in the arms and legs. Normal speech. PSYCHIATRIC: Appropriate mood and affect; insight and judgment normal. Data Data Last Documented VS Vital Signs Date Time Temp Pulse Resp B/P (MAP) Pulse Ox O2 Delivery O2 Flow Rate FiO2 04/30/17 17:43 16 04/30/17 17:33 99 Room Air 04/30/17 17:31 118 04/30/17 17:11 98.5 108/85 (93) Orders Orders Complete Blood Count With Diff (04/30/17 17:15) Comprehensive Metabolic Panel (04/30/17 17:15) Lipase (04/30/17 17:15) Type And Screen (04/30/17 17:15) Iv Access Insert/Monitor (04/30/17 17:31) Ecg Monitoring (04/30/17 17:31) Oximetry (04/30/17 17:31) NPO (04/30/17 17:31) Morphine Inj (Morphine Inj) (04/30/17 17:45) Ondansetron Inj (Zofran Inj) (04/30/17 17:45) Pantoprazole Inj (Protonix Inj) (04/30/17 17:45) Sodium Chlor 0.9% 1000 Ml Inj (Ns 1000 M (04/30/17 17:31) Sodium Chloride 0.9% Flush (Ns Flush) (04/30/17 17:45) Abdomen, Flat & Upright (04/30/17 ) Labs Laboratory Tests Test 04/30/17 17:29 White Blood Count 12.0 TH/MM3 Red Blood Count 3.89 MIL/MM3 Hemoglobin 12.1 GM/DL Hematocrit 33.9 % Mean Corpuscular Volume 87.0 FL Mean Corpuscular Hemoglobin 31.0 PG Mean Corpuscular Hemoglobin Concent 35.6 % Red Cell Distribution Width 28.6 % Platelet Count 413 TH/MM3 Mean Platelet Volume 7.1 FL Neutrophils (%) (Auto) 68.0 % Lymphocytes (%) (Auto) 26.0 % Monocytes (%) (Auto) 5.4 % Eosinophils (%) (Auto) 0.3 % Basophils (%) (Auto) 0.3 % Neutrophils # (Auto) 8.2 TH/MM3 Lymphocytes # (Auto) 3.1 TH/MM3 Monocytes # (Auto) 0.6 TH/MM3 Eosinophils # (Auto) 0.0 TH/MM3 Basophils # (Auto) 0.0 TH/MM3 CBC Comment AUTO DIFF Blood Urea Nitrogen 14 MG/DL Creatinine 0.91 MG/DL Random Glucose 114 MG/DL Total Protein 7.0 GM/DL Albumin 3.1 GM/DL Calcium Level 8.1 MG/DL Alkaline Phosphatase 124 U/L Aspartate Amino Transf (AST/SGOT) 12 U/L Alanine Aminotransferase (ALT/SGPT) 10 U/L Total Bilirubin 0.2 MG/DL Sodium Level 135 MEQ/L Potassium Level 3.0 MEQ/L Chloride Level 99 MEQ/L Carbon Dioxide Level 27.6 MEQ/L Anion Gap 8 MEQ/L Estimat Glomerular Filtration Rate 66 ML/MIN Lipase 73 U/L MDM Medical Decision Making Medical Screen Exam Complete: Yes Emergency Medical Condition: Yes Medical Record Reviewed: Yes Differential Diagnosis Perforated ulcer versus bleeding ulcer versus anemia versus electrolyte abnormalities Narrative Course CBC shows reactive leukocytosis of 12,000, no anemia H&H is 12/34, platelet count is within normal limits. Chemistry profile shows mild hypokalemia at 3.0, normal kidney function, normal liver functions normal pancreatic function. Abdominal series do not show any free air, no evidence for obstruction. Diagnosis Primary Impression: Dyspeptic syndrome Additional Impression: Dehydration resolved Patient Instructions: Diet for Stomach Ulcers and Gastritis (ED), Full Liquid Diet (GEN), General Instructions, Peptic Ulcer (ED) Scripts Ondansetron Odt (Zofran Odt) 4 Mg Tab 4 MG SL Q8HR Y for Nausea/Vomiting, #15 TAB 0 Refills Prov: Soy Herr MD 04/30/17 Tramadol (Ultram) 50 Mg Tab 50 MG PO Q8H Y for PAIN, #14 TAB 0 Refills Prov: Soy Herr MD 04/30/17 Sucralfate (Carafate) 1 Gram Tab 1 GM PO TID for Ulcer Prevention, #90 TAB 0 Refills On empty stomach Prov: Soy Herr MD 04/30/17 Disposition: 01 DISCHARGE HOME Condition: Stable Soy Herr MD Apr 30, 2017 17:45
[2017-04-30 18:03] LABS: AUTOMATED NEUTROPHIL # 8.2 TH/MM3 (1.8-7.7); BASOPHIL % 0.3 % (0.0-2.0); EOSINOPHIL % 0.3 % (0.0-4.0); HEMATOCRIT 33.9 % (35.0-46.0); HEMOGLOBIN 12.1 GM/DL (11.6-15.3); LYMPHOCYTE # 3.1 TH/MM3 (1.0-4.8); MEAN CORPUSCULAR HGB CONC 35.6 % (32.0-36.0); MEAN PLATELET VOLUME 7.1 FL (7.0-11.0); MONO % 5.4 % (0.0-8.0); MONOCYTE # 0.6 TH/MM3 (0-0.9); PLATELET COUNT 413 TH/MM3 (150-450); RED BLOOD COUNT 3.89 MIL/MM3 (4.00-5.30); RED CELL DISTRIBUTION WIDTH 28.6 % (11.6-17.2)
--- NOTE | 2017-04-30 18:13 | RADRPT ---
EXAM DATE/TIME: 04/30/2017 17:56 [facility] COMPARISON: No previous studies available for comparison. INDICATIONS : Left upper quadrant pain, nausea, and vomiting for three days. MEDICAL HISTORY : Hiatal hernia. SURGICAL HISTORY : None. ENCOUNTER: Initial ACUITY: 3 days PAIN SCORE: 7/10 LOCATION: Left upper quadrant FINDINGS: Supine and upright views of the abdomen were performed. There is a focal ileus left upper quadrant wi th air-fluid level. No abnormal masses, calcifications, or organomegaly is seen. The visualized lowe r lungs are clear. No evidence of free intraperitoneal gas. The osseous structures are unremarkable . CONCLUSION: Small air-fluid level in left upper quadrant most characteristic of a focal ileus. No evidence for ob struction. Baron Hsu MD on April 30, 2017 at 18:11 Board Certified Radiologist. This report was verified electronically.
[2017-04-30 18:15] LABS: ALBUMIN 3.1 GM/DL (3.4-5.0); AST (GOT) 12 U/L (15-37); BICARBONATE 27.6 MEQ/L (21.0-32.0); BLOOD UREA NITROGEN 14 MG/DL (7-18); CALCIUM 8.1 MG/DL (8.5-10.1); CHLORIDE 99 MEQ/L (98-107); CREATININE 0.91 MG/DL (0.50-1.00); GLOMERULAR FILTRATION RATE 66 ML/MIN (>89); GLUCOSE,RANDOM 114 MG/DL (74-106); SODIUM (NA) 135 MEQ/L (136-145)
[2017-04-30 18:16] LABS: ALT (GPT) 10 U/L (10-53)
[2017-04-30 18:18] LABS: ALKALINE PHOSPHATASE 124 U/L (45-117); TOTAL BILIRUBIN ADULT 0.2 MG/DL (0.2-1.0)
[2017-04-30] MEDS ORDERED: ZOFR4TAB3 SL (18:32)
[2017-04-30] MEDS ORDERED: CARA1TAB6 PO (18:32)
[2017-04-30] MEDS ORDERED: TRAM50 PO (18:32)
[2017-04-30 18:34] VITALS: BP 128/70; PULSE 106; RESP 16; TEMP 97.9; O2SAT 100
[2017-04-30 18:50] LABS: STOMATOCYTES 1+ (NORMAL)
[2017-04-30 19:40] VITALS: BP 118/61; PULSE 122; RESP 16; O2SAT 100
[2017-04-30] MEDS ORDERED: ONDANSETRON HCL 4 MG/2 ML VIAL IV PUSH ONE (19:45)
[2017-04-30] MEDS ORDERED: SODIUM CHLOR 0.9% 1000 ML INJ 1,000 ML IV ONE (19:45)
--- NOTE | 2017-04-30 20:55 | PD ---
Physical Exam Narrative Patient was seen by previous team and was about to be discharge at change of shift when her nurse approach me and said pt is still nauseous and was tachycardic in the 110s to 120. 46yo F with ulcer here with nausea and vomiting for a few days. Labs reviewed, WBC 12. Lipase normal. Mild hypokalemia at 3.0, replaced orally. Pt given another dose of zofran and NS IVF and now feels better. Tolerating PO and heart rate improved. Pt has GI follow up and can follow up as outpatient. Return precautions given. Data Data Last Documented VS Vital Signs Date Time Temp Pulse Resp B/P (MAP) Pulse Ox O2 Delivery O2 Flow Rate FiO2 04/30/17 21:02 04/30/17 21:01 108 04/30/17 19:40 16 100 Room Air 04/30/17 18:34 97.9 Orders Orders Complete Blood Count With Diff (04/30/17 17:15) Comprehensive Metabolic Panel (04/30/17 17:15) Lipase (04/30/17 17:15) Type And Screen (04/30/17 17:15) Iv Access Insert/Monitor (04/30/17 17:31) Ecg Monitoring (04/30/17 17:31) Oximetry (04/30/17 17:31) NPO (04/30/17 17:31) Morphine Inj (Morphine Inj) (04/30/17 17:45) Ondansetron Inj (Zofran Inj) (04/30/17 17:45) Pantoprazole Inj (Protonix Inj) (04/30/17 17:45) Sodium Chlor 0.9% 1000 Ml Inj (Ns 1000 M (04/30/17 17:31) Sodium Chloride 0.9% Flush (Ns Flush) (04/30/17 17:45) Abdomen, Flat & Upright (04/30/17 ) Ed Discharge Order (04/30/17 19:18) Ondansetron Inj (Zofran Inj) (04/30/17 19:45) Sodium Chlor 0.9% 1000 Ml Inj (Ns 1000 M (04/30/17 19:45) Potassium Chloride (Kcl) (04/30/17 21:00) Labs Laboratory Tests Test 04/30/17 17:29 White Blood Count 12.0 TH/MM3 Red Blood Count 3.89 MIL/MM3 Hemoglobin 12.1 GM/DL Hematocrit 33.9 % Mean Corpuscular Volume 87.0 FL Mean Corpuscular Hemoglobin 31.0 PG Mean Corpuscular Hemoglobin Concent 35.6 % Red Cell Distribution Width 28.6 % Platelet Count 413 TH/MM3 Mean Platelet Volume 7.1 FL Neutrophils (%) (Auto) 68.0 % Lymphocytes (%) (Auto) 26.0 % Monocytes (%) (Auto) 5.4 % Eosinophils (%) (Auto) 0.3 % Basophils (%) (Auto) 0.3 % Neutrophils # (Auto) 8.2 TH/MM3 Lymphocytes # (Auto) 3.1 TH/MM3 Monocytes # (Auto) 0.6 TH/MM3 Eosinophils # (Auto) 0.0 TH/MM3 Basophils # (Auto) 0.0 TH/MM3 CBC Comment AUTO DIFF Differential Comment AUTO DIFF CONFIRMED Stomatocytes 1+ Blood Urea Nitrogen 14 MG/DL Creatinine 0.91 MG/DL Random Glucose 114 MG/DL Total Protein 7.0 GM/DL Albumin 3.1 GM/DL Calcium Level 8.1 MG/DL Alkaline Phosphatase 124 U/L Aspartate Amino Transf (AST/SGOT) 12 U/L Alanine Aminotransferase (ALT/SGPT) 10 U/L Total Bilirubin 0.2 MG/DL Sodium Level 135 MEQ/L Potassium Level 3.0 MEQ/L Chloride Level 99 MEQ/L Carbon Dioxide Level 27.6 MEQ/L Anion Gap 8 MEQ/L Estimat Glomerular Filtration Rate 66 ML/MIN Lipase 73 U/L MDM Supervised Visit with SELVIN: No Diagnosis Primary Impression: Dyspeptic syndrome Additional Impression: Dehydration resolved Patient Instructions: General Instructions, Peptic Ulcer (ED), Diet for Stomach Ulcers and Gastritis (ED), Full Liquid Diet (GEN) Departure Forms: Tests/Procedures Scripts Ondansetron Odt (Zofran Odt) 4 Mg Tab 4 MG SL Q8HR Y for Nausea/Vomiting, #15 TAB 0 Refills Prov: Soy Herr MD 04/30/17 Tramadol (Ultram) 50 Mg Tab 50 MG PO Q8H Y for PAIN, #14 TAB 0 Refills Prov: Soy Herr MD 04/30/17 Sucralfate (Carafate) 1 Gram Tab 1 GM PO TID for Ulcer Prevention, #90 TAB 0 Refills On empty stomach Prov: Soy Herr MD 04/30/17 Disposition: 01 DISCHARGE HOME Condition: Stable Yolanda Cha DO Apr 30, 2017 20:55
[2017-04-30] MEDS ORDERED: POTASSIUM CHLORIDE 20 MEQ CONTROLLED RELEASE TAB PO ONE (21:00)
[2017-04-30 21:01] VITALS: PULSE 108
== END 2017-04-30 21:09 | disposition home or self-care (01) ==
LOC: NEPC 17:04
DX: R10.13 Epigastric pain (principal); E86.0 Dehydration; R11.2 Nausea with vomiting, unspecified; R00.0 Tachycardia, unspecified; E87.6 Hypokalemia; D72.829 Elevated white blood cell count, unspecified; K21.9 Gastro-esophageal reflux disease without esophagitis; F17.200 Nicotine dependence, unspecified, uncomplicated; Z79.899 Other long term (current) drug therapy
CPT/HCPCS: 74019; 80053; 83690; 85025; 86850; 86900; 86901; 96361; 96374; 96375; 96376; 99284; C9113; J2270; J2405; J7030

== ENCOUNTER 2017-07-31 22:11 | Inpatient (IN) | payer OTHER ==
[~2017-07-31 22:11] MED LIST changes: -CALC500 PO; +CARA1TAB6 PO; -CHOL5000 PO; -FERR325T18 PO; -GETGO ROLLING W1 MI1; -MESA250 PO; -METR-1 PO; -THIA100 PO; +ZOFR4TAB3 SL
[2017-07-31] MEDS ORDERED: IOHEXOL 350 MG/ML 10 ML VIAL (for RAD DIAG) IVCONTRAST ONE (22:12)
[2017-07-31 22:45] VITALS: PULSE 99; RESP 20; TEMP 98; O2SAT 100
[2017-07-31] MEDS ORDERED: PANT40TA3 PO (22:54)
[2017-07-31] MEDS ORDERED: SODIUM CHLOR 0.9% 1000 ML INJ 1,000 ML IV ONE (23:15)
[2017-07-31 23:53] VITALS: RESP 20; O2SAT 96
[2017-08-01 00:04] LABS: AUTOMATED NEUTROPHIL # 13.8 TH/MM3 (1.8-7.7); BASOPHIL # 0.1 TH/MM3 (0-0.2); BASOPHIL % 0.5 % (0.0-2.0); EOSINOPHIL # 0.2 TH/MM3 (0-0.4); EOSINOPHIL % 1.2 % (0.0-4.0); HEMATOCRIT 26.6 % (35.0-46.0); HEMOGLOBIN 9.6 GM/DL (11.6-15.3); LYMPH % 15.6 % (9.0-44.0); LYMPHOCYTE # 2.8 TH/MM3 (1.0-4.8); MEAN CELL VOLUME 94.8 FL (80.0-100.0); MEAN CORPUSCULAR HEMOGLOBIN 34.2 PG (27.0-34.0); MEAN CORPUSCULAR HGB CONC 36.1 % (32.0-36.0); MONO % 4.5 % (0.0-8.0); MONOCYTE # 0.8 TH/MM3 (0-0.9); NEUT % 78.2 % (16.0-70.0); PLATELET COUNT 548 TH/MM3 (150-450); RED CELL DISTRIBUTION WIDTH 15.7 % (11.6-17.2); WHITE BLOOD COUNT 17.6 TH/MM3 (4.0-11.0)
[2017-08-01 00:04] LABS: BACTERIA, URINE MOD /hpf; BILIRUBIN, URINE NEG (NEG); BLOOD, URINE NEG (NEG); GLUCOSE,URINE NEG (NEG); KETONE, URINE NEG (NEG); NITRITE,URINE NEG (NEG); PH, URINE 5.5 (5.0-8.5); SQUAMOUS EPITHELIAL CELL URINE 16 /hpf (0-5); URINE COLOR LIGHT-YELLOW (YELLW/STRAW); URINE LEUKOCYTE ESTERASE SMALL (NEG)
--- NOTE | 2017-08-01 00:11 | PD ---
HPI Chief Complaint: Abdominal Pain Time Seen by Provider: 23:03 Travel History International Travel<30 days: No Contact w/Intl Traveler<30days: No Traveled to known affect area: No History of Present Illness HPI The patient is a 46 year old female who presents to the [facility] emergency department with a history of abdominal pain that she reports began 3 weeks ago. The patient reports that the pain has been coming and going in the beginning, however now it is more constant. She reports having of sharp burning sensation in the midepigastric area and a dull aching sensation in the left lower quadrant of the abdomen. The patient reports a past medical history of peptic ulcer disease, hiatal hernia, and Crohn's disease. She cannot recall when she last moved her bowels. She normally moves her bowels once every day to every other day. She reports that when she has a Crohn's exacerbation she usually has diarrhea, however recently she has been constipated. She reports that she saw her primary care physician regarding this and was given a refill of her tramadol, Xanax, and Protonix, however she has not had any improvement in her symptoms. Her primary care physician is . She reports having nausea and vomiting that began today. She reports that she did have brown colored emesis earlier today 1. On review of systems otherwise, she denies having any fevers, cough or congestion, neck pain, chest pain, shortness of breath, urinary symptoms, or neurologic symptoms. She reports that she has noticed that she is urinating less frequently. [facility] Past Medical History Narrative Medical The patient's past medical history is significant for hiatal hernia, peptic ulcer disease, Crohn's disease, anxiety disorder, acid reflux, headaches, hyperlipidemia, hypothyroid disorder, anemia with her last hemoglobin being 9.7 as an outpatient. Hx Anticoagulant Therapy: No Anemia: Yes Arthritis: No Asthma: No Blood Disorders: No Anxiety: Yes Depression: No Heart Rhythm Problems: No Cancer: No Cardiac Catheterization: No Cardiovascular Problems: No High Cholesterol: Yes Chemotherapy: No Chest Pain: No Congestive Heart Failure: No COPD: No Cerebrovascular Accident: No Diabetes: No Diminished Hearing: No Endocrine: No Gastrointestinal Disorders: Yes (GASTRITIS, CROHNS) GERD: Yes Genitourinary: No Headaches: Yes Hiatal Hernia: Yes Hypertension: No Immune Disorder: No Implanted Vascular Access Dvce: Yes Kidney Stones: No Musculoskeletal: No Neurologic: No Psychiatric: Yes (anxiety) Respiratory: Yes Migraines: Yes Renal Failure: No Seizures: No Sleep Apnea: No Thyroid Disease: Yes (HYPO) Ulcer: Yes ?: Not Menopausal: Yes : 4 Para: 4 Tubal Ligation: Yes (2009) Past Surgical History Narrative Surgical The patient's past surgical history is significant for bilateral tubal ligation , lumpectomy of the left breast that was benign, jaw ORIF. Abdominal Surgery: No Body Medical Devices: jaw repair Cardiac Surgery: No Coronary Artery Bypass Graft: No Ear Surgery: No Endocrine Surgery: No Eye Surgery: No Genitourinary Surgery: No Gynecologic Surgery: No Hysterectomy: No Mastectomy: Yes (LT LUMPECTOMY NON-CANCER) Oral Surgery: Yes (MANDIBLE REPAIR) Thoracic Surgery: No Other Surgery: Yes (BENIGN LUMPECTOMY LT BREAST) Family History Family Myocardial Infarction: Yes Social History Alcohol Use: No Tobacco Use: Yes (1 PPD) Substance Use: No Allergies-Medications (Allergen,Severity, Reaction): Coded Allergies: No Known Allergies (Verified Allergy, Unknown, 07/31/17) Reported Meds & Prescriptions Reported Meds & Active Scripts Active Carafate (Sucralfate) 1 Gram Tab 1 Gm PO TID On empty stomach Alprazolam 0.5 Mg Tab 1 Mg PO BID PRN Reported Pantoprazole (Pantoprazole Sodium) 40 Mg Tab 80 Mg PO DAILY Review of Systems Except as stated in HPI: all other systems reviewed are Neg General / Constitutional: No: Fever Eyes: No: Visual changes HENT: No: Headaches Cardiovascular: No: Chest Pain or Discomfort Respiratory: No: Shortness of Breath Gastrointestinal: Positive: Nausea, Vomiting, Abdominal Pain, Constipation, Changes in Bowel Habits, Indigestion, No: Diarrhea, Hematemesis, Hematochezia, Loss of Appetite Genitourinary: Positive: Decreased Urinary Output, No: Dysuria Musculoskeletal: No: Pain Skin: No Rash Neurologic: No: Weakness Psychiatric: No: Depression Endocrine: No: Polydipsia Hematologic/Lymphatic: No: Easy Bruising Physical Exam Narrative General: The patient is a well-developed well-nourished female in no acute distress. Head and Neck exam: Head is normocephalic atraumatic. Eyes: EOMI, pupils are equal round and reactive to light. Nose: Midline septum with pink mucous membranes Mouth: Dentition unremarkable. Moist mucus membranes. Posterior oropharynx is not erythematous. No tonsillar hypertrophy. Uvula midline. Airway patent. Neck: No palpable lymphadenopathy. No nuchal rigidity. No thyromegaly. Cardiovascular: Regular rate and rhythm without murmurs, gallops, or rubs. No pulse deficit to the extremities on simultaneous auscultation and palpation of her radial artery. Lungs: Clear to auscultation bilaterally. No wheezes, rhonchi, or rales. Abdomen: Soft, with tenderness on palpation reportedly in the midepigastric area and left upper quadrant of the abdomen as well as the left lower quadrant of the abdomen, no other tenderness on palpation of the other quadrants. No tenderness on palpation of McBurney's point. Normal bowel sounds are audible. No guarding, rebound, or rigidity. Negative Moya sign. Extremities: No clubbing, cyanosis, or edema. 2+ pulses in all 4 extremities. No calf tenderness on palpation Back: No spinous process tenderness to palpation. No costovertebral angle tenderness to palpation. Neurologic Exam: Grossly nonfocal. Skin Exam: No rash noted. Intact skin that is warm and dry. Data Data Last Documented VS Vital Signs Date Time Temp Pulse Resp B/P (MAP) Pulse Ox O2 Delivery O2 Flow Rate FiO2 08/01/17 00:30 18 07/31/17 23:53 96 Room Air 07/31/17 22:45 98.0 99 Orders Orders Electrocardiogram (07/31/17 23:09) Complete Blood Count With Diff (07/31/17 23:) Comprehensive Metabolic Panel (07/31/17 23:) Creatine Kinase (Cpk) (07/31/17 23:09) Ckmb (Isoenzyme) Profile (07/31/17 23:09) Troponin I (07/31/17 23:) B-Type Natriuretic Peptide (07/31/17 23:09) Prothrombin Time / Inr (Pt) (07/31/17 23:) Act Partial Throm Time (Ptt) (07/31/17 23:09) C-Reactive Protein (Crp) (07/31/17 23:09) Lipase (07/31/17 23:) Urinalysis - C+S If Indicated (07/31/17 23:) Magnesium (Mg) (6/10/18 23:09) Iv Access Insert/Monitor (07/31/17 23:09) Ecg Monitoring (07/31/17 23:09) Oximetry (07/31/17 23:09) Ed Urine Pregnancytest Poc (07/31/17 23:09) Lactic Acid (07/31/17 23:09) Sodium Chlor 0.9% 1000 Ml Inj (Ns 1000 M (07/31/17 23:15) Urine Culture (07/31/17 23:40) Morphine Inj (Morphine Inj) (08/01/17 00:15) Chest, Single Ap (08/01/17 ) Metoclopramide Inj (Reglan Inj) (08/01/17 00:15) Ct Abd/Pel W Iv Contrast(Rout) (08/01/17 00:43) Ceftriaxone Inj (Rocephin Inj) (08/01/17 00:45) Iohexol 350 Inj (Omnipaque 350 Inj) (07/31/17 22:12) Potassium Chloride (Kcl) (08/01/17 01:45) Azithromycin Inj (Zithromax Inj) (08/01/17 02:00) Pantoprazole Inj (Protonix Inj) (08/01/17 01:45) Blood Culture (08/01/17 01:45) Admit Order (Ed Use Only) (08/01/17 01:58) Labs Laboratory Tests Test 07/31/17 23:40 07/31/17 23:49 Urine Color LIGHT-YELLOW Urine Turbidity HAZY Urine pH 5.5 Urine Specific [place] 1.012 Urine Protein NEG mg/dL Urine Glucose (UA) NEG mg/dL Urine Ketones NEG mg/dL Urine Occult Blood NEG Urine Nitrite NEG Urine Bilirubin NEG Urine Urobilinogen LESS THAN 2.0 MG/DL Urine Leukocyte Esterase SMALL Urine RBC 1 /hpf Urine WBC 3 /hpf Urine Squamous Epithelial Cells 16 /hpf Urine Bacteria MOD /hpf Microscopic Urinalysis Comment CULTURE INDICATED Lactic Acid Level 0.6 mmol/L White Blood Count 17.6 TH/MM3 Red Blood Count 2.80 MIL/MM3 Hemoglobin 9.6 GM/DL Hematocrit 26.6 % Mean Corpuscular Volume 94.8 FL Mean Corpuscular Hemoglobin 34.2 PG Mean Corpuscular Hemoglobin Concent 36.1 % Red Cell Distribution Width 15.7 % Platelet Count 548 TH/MM3 Mean Platelet Volume 7.0 FL Neutrophils (%) (Auto) 78.2 % Lymphocytes (%) (Auto) 15.6 % Monocytes (%) (Auto) 4.5 % Eosinophils (%) (Auto) 1.2 % Basophils (%) (Auto) 0.5 % Neutrophils # (Auto) 13.8 TH/MM3 Lymphocytes # (Auto) 2.8 TH/MM3 Monocytes # (Auto) 0.8 TH/MM3 Eosinophils # (Auto) 0.2 TH/MM3 Basophils # (Auto) 0.1 TH/MM3 CBC Comment AUTO DIFF Differential Comment AUTO DIFF CONFIRMED Hypersegmented Polys 1+ Platelet Estimate HIGH Platelet Morphology Comment NORMAL Prothrombin Time 10.8 SEC Prothromb Time International Ratio 1.1 RATIO Activated Partial Thromboplast Time 29.5 SEC Blood Urea Nitrogen 10 MG/DL Creatinine 0.56 MG/DL Random Glucose 85 MG/DL Total Protein 6.9 GM/DL Albumin 3.0 GM/DL Calcium Level 8.8 MG/DL Magnesium Level 1.8 MG/DL Alkaline Phosphatase 86 U/L Aspartate Amino Transf (AST/SGOT) 8 U/L Alanine Aminotransferase (ALT/SGPT) 11 U/L Total Bilirubin 0.2 MG/DL Sodium Level 139 MEQ/L Potassium Level 3.0 MEQ/L Chloride Level 105 MEQ/L Carbon Dioxide Level 23.3 MEQ/L Anion Gap 11 MEQ/L Estimat Glomerular Filtration Rate 116 ML/MIN Total Creatine Kinase 20 U/L Troponin I LESS THAN 0.02 NG/ML C-Reactive Protein 1.18 MG/DL B-Type Natriuretic Peptide 7 PG/ML Lipase 81 U/L MDM Medical Decision Making Medical Screen Exam Complete: Yes Emergency Medical Condition: Yes Medical Record Reviewed: Yes Differential Diagnosis Exacerbation of Crohn's disease, versus peptic ulcer disease, versus constipation, versus diverticulitis, versus colitis Narrative Course During the course of the patient's emergency department visit, the patient's history, examination, and differential diagnosis were reviewed with the patient. The patient was placed on a retail pricing coordinator with oximetry and frequent blood pressure monitoring. The patient had IV access obtained and blood work sent for analysis. The patient had a EKG done on arrival. The patient's EKG reveals a sinus rhythm heart rate of 89, QRS duration is [address] segment elevation, T waves are inverted in V1, V2. The patient was initially provided normal saline 1 L IV fluid bolus, morphine 4 mg IV for pain, Zofran 4 mg IV for nausea. The patient's laboratory studies were reviewed and remarkable for 07/31/17 23:49 Total Protein 6.9, Albumin 3.0 L, Calcium Level 8.8, Magnesium Level 1.8, Alkaline Phosphatase 86, Aspartate Amino Transf (AST/SGOT) 8 L, Alanine Aminotransferase (ALT/SGPT) 11, Total Bilirubin 0.2. The patient's CBC is remarkable for an elevated white blood cell count at 17.6 with a left shift, chemistry remarkable for hypokalemia at 3.0 which was supplemented orally. Lipase was within normal limits, lactic acid within normal limits at 0.3, PT PTT within normal limits, urinalysis shows small leukocyte esterase, moderate bacteria, culture indicated. Given the patient's leukocytosis the patient had blood cultures x2 added to her workup. The patient was given Rocephin 1 g IV for a potential urinary tract infection. The patient's pain was controlled with morphine and Reglan. The patient was given Protonix 40 mg IV after the abnormality on her CT scan was noted involving her stomach. Radiology studies were reviewed and remarkable for Last Impressions Abdomen/Pelvis CT 08/01/17 0043 Signed Impressions: CONCLUSION: 1. Prominent distal gastric body wall thickening testing gastritis or peptic u lcer disease. No free air or free fluid. 2. Mild patchy parenchymal opacity in the right lung base. Chest X-Ray 08/01/17 0000 Signed Impressions: CONCLUSION: No acute cardiopulmonary disease identified. The patient will be admitted to the hospital for gastritis associated with a right lower lobe infiltrate and urinary tract infection. The patient is noted to meet Sirs criteria. The patient's results were discussed with the patient, including the plan of care. I explained that further testing and/ or monitoring is indicated based on the patient's history, examination, and/ or laboratory findings. Therefore, I recommended admission for additional evaluation. The patient expressed understanding and was agreeable with this plan. The patient was admitted to the hospital in stable condition and sent to a bed under the care of the [facility]. Sepsis Criteria SIRS Criteria (2 or more): Heart rate over 90, WBC > 41944, < 4000 or > 10% bands Sepsis Criteria (SIRS+source): Infect source susp/known Physician Communication Physician Communication The patient's case including history, pertinent physical examination findings, and laboratory studies were discussed with Dr. Sarabia. It was agreed that the patient would be admitted to the [facility]. Diagnosis Primary Impression: Abdominal pain Qualified Codes: R10.12 - Left upper quadrant pain Additional Impressions: Gastric wall thickening Lung infiltrate on CT Urinary tract infection Qualified Codes: N39.0 - Urinary tract infection, site not specified Admitting Information Admitting Physician Requests: Admit Sabrina Ashton MD Aug 01, 2017 00:11
[2017-08-01 00:14] LABS: INTERNATIONAL NORMALIZED RATIO 1.1 RATIO; PROTHROMBIN TIME - PATIENT 10.8 SEC (9.8-11.6)
[2017-08-01] MEDS ORDERED: METOCLOPRAMIDE HCL 10 MG/2 ML VIAL IV PUSH ONE (00:15)
[2017-08-01] MEDS ORDERED: MORPHINE SULFATE 4 MG/ML INJ IV PUSH ONE (00:15)
[2017-08-01 00:18] LABS: AST (GOT) 8 U/L (15-37); BICARBONATE 23.3 MEQ/L (21.0-32.0); BLOOD UREA NITROGEN 10 MG/DL (7-18); CALCIUM 8.8 MG/DL (8.5-10.1); CHLORIDE 105 MEQ/L (98-107); CREATININE 0.56 MG/DL (0.50-1.00); GLOMERULAR FILTRATION RATE 116 ML/MIN (>89); GLUCOSE,RANDOM 85 MG/DL (74-106); MAGNESIUM 1.8 MG/DL (1.5-2.5); SODIUM (NA) 139 MEQ/L (136-145)
[2017-08-01 00:21] LABS: ALKALINE PHOSPHATASE 86 U/L (45-117); ALT (GPT) 11 U/L (10-53); C-REACTIVE PROTEIN 1.18 MG/DL (0.00-0.30); TOTAL BILIRUBIN ADULT 0.2 MG/DL (0.2-1.0); TOTAL PROTEIN 6.9 GM/DL (6.4-8.2); TROPONIN I LESS THAN 0.02 NG/ML (0.02-0.05)
[2017-08-01 00:30] LABS: HYPERSEGMENTED POLYS 1+ (NORMAL)
[2017-08-01] MEDS ORDERED: cefTRIAXone INJ 1,000 MG in SODIUM CHLORIDE 0.9% INJ 100 ML IV ONE (00:45)
--- NOTE | 2017-08-01 00:47 | RADRPT ---
EXAM DATE: 08/01/2017 12:18 AM EDT AGE/SEX: 46 years / Female INDICATIONS: Shortness of breath. CLINICAL DATA: This is the patient's initial encounter. Patient reports that signs and symptoms have been present for 1 day and indicates a pain score of 0/10. MEDICAL/SURGICAL HISTORY: None. None. COMPARISON: No prior exams available for comparison. FINDINGS: Single AP view of the chest. The lungs are clear. Cardiomediastinal silhouette within norm al limits. No evidence of pleural effusion or pneumothorax. CONCLUSION: No acute cardiopulmonary disease identified. Electronically signed by: Miguel Turk MD 08/01/2017 12:45 AM EDT
--- NOTE | 2017-08-01 01:40 | RADRPT ---
EXAM DATE: 08/01/2017 1:27 AM EDT AGE/SEX: 46 years / Female INDICATIONS: Abdomen pain past 3 weeks. CLINICAL DATA: This is the patient's initial encounter. Patient reports that signs and symptoms have been present for 3 weeks and indicates a pain score of 10/10. MEDICAL/SURGICAL HISTORY: Gastroesophageal reflux disease. Hiatal hernia. Crohn?s disease. . Left lumpectomy ORAL CONTRAST: No oral contrast ingested. RADIATION DOSE: 6.61 CTDI (mGy) [place]PAR[place]: [facility] [place] 03/10/2017. . TECHNIQUE: Multiple contiguous axial images were obtained through the abdomen and pelvis following b olus infusion of 95 ml Omnipaque 350 (iohexol) nonionic water-soluble contrast as a single exam dos e. No oral contrast ingested. Using automated exposure control and adjustment of the mA and/or kV ac cording to patient size, the radiation dose was kept as low as reasonably achievable to obtain optima l diagnostic quality images. FINDINGS: Lower Lungs: Mild patchy opacity in the right lower lobe increased from the prior study. Liver: The liver has a homogeneous density without space-occupying lesion. There is no dilation of th e biliary tree. Spleen: Homogeneous density without enlargement. Pancreas: Unremarkable without mass or calcification. Kidneys: Normal in size and shape. No evidence of mass or hydronephrosis. Adrenal Glands: Unremarkable. Aorta: The aorta and proximal iliac vessels are grossly unremarkable without aneurysmal dilation. Bowel/Mesentery: Circumventive wall thickening and mucosal enhancement of the gastric body. No evide nce of bowel dilatation. No small bowel wall thickening identified. No colonic wall thickening identi fied. Appendix within normal limits. No free air or free fluid. Abdominal Wall: Intact. Retroperitoneum: No evidence of adenopathy in the retrocrural, para-aortic, or deep pelvic regions. Bladder: Contours are smooth. Reproductive Organs: No abnormal masses or calcifications seen. Inguinal: The inguinal region is unremarkable without evidence of adenopathy. Bony Structures: Unremarkable. CONCLUSION: 1. Prominent distal gastric body wall thickening testing gastritis or peptic ulcer disease. No free air or free fluid. 2. Mild patchy parenchymal opacity in the right lung base. Electronically signed by: Miguel Turk MD 08/01/2017 1:39 AM EDT
[2017-08-01] MEDS ORDERED: PANTOPRAZOLE SODIUM 40 MG VIAL IV PUSH ONE (01:45)
[2017-08-01] MEDS ORDERED: POTASSIUM CHLORIDE 20 MEQ CONTROLLED RELEASE TAB PO ONE (01:45)
[2017-08-01] MEDS ORDERED: SENNOSIDES 8.6 MG TAB PO PRN (02:00)
[2017-08-01] MEDS ORDERED: MAGNESIUM HYDROXIDE SUSP 30 ML CUP PO PRN (02:00)
[2017-08-01] MEDS ORDERED: SODIUM CHLORIDE 0.9% FLUSH 10 ML FLUSH IV FLUSH PRN (02:00)
[2017-08-01] MEDS ORDERED: BISACODYL 10 MG SUPP RECTAL PRN (02:00)
[2017-08-01] MEDS ORDERED: LACTULOSE SYRUP 20 GM/30 ML CUP PO PRN (02:00)
[2017-08-01] MEDS ORDERED: MORPHINE SULFATE 4 MG/ML INJ IV PUSH PRN (02:00)
[2017-08-01] MEDS ORDERED: AZITHROMYCIN INJ 500 MG in SODIUM CHLOR 0.9% 250 ML INJ 250 ML IV ONE (02:00)
[2017-08-01] MEDS: SODIUM CHLOR 0.9% 1000 ML INJ 1,000 ML IV SCH ×3 (02:06→21:49)
[2017-08-01] MEDS ORDERED: NICOTINE 21 MG/24 HR PATCH T-DERMAL PRN (02:15)
[2017-08-01 02:54] VITALS: BP 153/89; PULSE 94; RESP 18; O2SAT 100
[2017-08-01] MEDS: HYDROmorphone HCL PF 2 MG/ML VIAL IV PUSH PRN ×3 (02:55→19:45)
[2017-08-01] MEDS: METOCLOPRAMIDE HCL 10 MG/2 ML VIAL IV PUSH PRN ×2 (02:56→23:24)
--- NOTE | 2017-08-01 02:58 | HHI.HP ---
[facility] Unknown Admission Diagnosis Gastritits, UTI, Lung infiltrate Diagnoses: (1) SIRS (systemic inflammatory response syndrome) Diagnosis: Principal (2) Gastritis Diagnosis: Principal (3) UTI (urinary tract infection) Diagnosis: Principal (4) PNA (pneumonia) Diagnosis: Principal (5) Hypokalemia Diagnosis: Principal (6) Tobacco abuse Diagnosis: Principal Travel History International Travel<30 Days: No Contact w/Intl Traveler <30 Da: No Traveled to Known Affected Are: No History of Present Illness This is a 46-year-old female with a PMH of Crohn's Disease, Anxiety, GERD, Hypothyroidism, Anemia and Tobacco Abuse who presented to the ER with complaints of epigastric abdominal pain and LLQ abdominal pain x3 wks. States symptoms do not feel like Crohn's exacerbation, denies diarrhea which she normally gets w/ Crohn's flare. Does note decreased PO intake x3-4 days due to symptoms. Pain is severe, 8/10, constant, non-radiating, worse after eating. Denies fever or chills. On arrival, vitals stable, Afebrile. WBC 17.6. K+ 3.0. Troponin negative. Lipase normal. INR 1.1. UA positive for UTI. CXR with no acute findings. CT Abdomen/Pelvis with prominent gastric body wall thickening likely gastritis, mild patchy opacity right lung base. S/p Rocephin/ Zithro in ER. Review of Systems Except as stated in HPI: all other systems reviewed are Neg ROS: 14 point review of systems otherwise negative. Past Family Social History Past Medical History PMH: Crohn's Disease, Anxiety, GERD, Hypothyroidism, Anemia and Tobacco Abuse Past Surgical History PAST SURGICAL HISTORY: Left Breast Lumpectomy, Jaw ORIF Allergies: Coded Allergies: No Known Allergies (Verified Allergy, Unknown, 07/31/17) Family History PAST FAMILY HISTORY: Reviewed. No h/o DM or CAD Social History PAST SOCIAL HISTORY: Negative for alcohol or drugs. Smokes 1ppd. Physical Exam Vital Signs Vital Signs Date Time Temp Pulse Resp B/P (MAP) Pulse Ox O2 Delivery O2 Flow Rate FiO2 6/11/18 00:30 18 07/31/17 23:53 20 96 Room Air 07/31/17 22:45 98.0 99 20 100 Physical Exam PE: GENERAL: Middle-aged white female in no acute distress, appears much older than stated age. Smells of tobacco. HEENT: PERRLA, EOMI. No scleral icterus or conjunctival pallor. No lid lag or facial droop. CARDIOVASCULAR: Regular rate and rhythm. No obvious murmurs to auscultation. No chest tenderness to palpation. RESPIRATORY: No obvious rhonchi or wheezing. Clear to auscultation. Breath sounds equal bilaterally. GASTROINTESTINAL: Abdomen soft, epigastric and LLQ tenderness to palpation, nondistended. BS normal. MUSCULOSKELETAL: Extremities without clubbing, cyanosis, or edema. No obvious deformities. NEUROLOGICAL: Awake, alert and oriented x4. No focal neurologic deficits. Moving both upper and lower extremities spontaneously. Laboratory Laboratory Tests Test 07/31/17 23:40 07/31/17 23:49 Urine Color LIGHT-YELLOW Urine Turbidity HAZY Urine pH 5.5 Urine Specific [place] 1.012 Urine Protein NEG Urine Glucose (UA) NEG Urine Ketones NEG Urine Occult Blood NEG Urine Nitrite NEG Urine Bilirubin NEG Urine Urobilinogen LESS THAN 2.0 Urine Leukocyte Esterase SMALL Urine RBC 1 Urine WBC 3 Urine Squamous Epithelial Cells 16 Urine Bacteria MOD Microscopic Urinalysis Comment CULTURE INDICATED Lactic Acid Level 0.6 White Blood Count 17.6 Red Blood Count 2.80 Hemoglobin 9.6 Hematocrit 26.6 Mean Corpuscular Volume 94.8 Mean Corpuscular Hemoglobin 34.2 Mean Corpuscular Hemoglobin Concent 36.1 Red Cell Distribution Width 15.7 Platelet Count 548 Mean Platelet Volume 7.0 Neutrophils (%) (Auto) 78.2 Lymphocytes (%) (Auto) 15.6 Monocytes (%) (Auto) 4.5 Eosinophils (%) (Auto) 1.2 Basophils (%) (Auto) 0.5 Neutrophils # (Auto) 13.8 Lymphocytes # (Auto) 2.8 Monocytes # (Auto) 0.8 Eosinophils # (Auto) 0.2 Basophils # (Auto) 0.1 CBC Comment AUTO DIFF Differential Comment AUTO DIFF CONFIRMED Hypersegmented Polys 1+ Platelet Estimate HIGH Platelet Morphology Comment NORMAL Prothrombin Time 10.8 Prothromb Time International Ratio 1.1 Activated Partial Thromboplast Time 29.5 Blood Urea Nitrogen 10 Creatinine 0.56 Random Glucose 85 Total Protein 6.9 Albumin 3.0 Calcium Level 8.8 Magnesium Level 1.8 Alkaline Phosphatase 86 Aspartate Amino Transf (AST/SGOT) 8 Alanine Aminotransferase (ALT/SGPT) 11 Total Bilirubin 0.2 Sodium Level 139 Potassium Level 3.0 Chloride Level 105 Carbon Dioxide Level 23.3 Anion Gap 11 Estimat Glomerular Filtration Rate 116 Total Creatine Kinase 20 Troponin I LESS THAN 0.02 C-Reactive Protein 1.18 B-Type Natriuretic Peptide 7 Lipase 81 Date/Time Source Procedure Growth Status 08/01/17 02:17 Blood Peripheral Aerobic Blood Culture Pending Received 08/01/17 02:17 Blood Peripheral Anaerobic Blood Culture Pending Received 07/31/17 23:40 Urine Random Urine Urine Culture Pending Worksheet Result Diagram: 07/31/17 2349 07/31/17 2349 Jarettrini VTE Risk Assessment Caprini VTE Risk Assessment: No/Low Risk (score <= 1) Caprini Risk Assessment Model Point Value = 1 Point Value = 2 Point Value = 3 Point Value = 5 Age 41-60 Minor surgery BMI > 25 kg/m2 Swollen legs Varicose veins or History of unexplained or recurrent spontaneous Oral contraceptives or hormone replacement Sepsis (< 1 month) Serious lung disease, including pneumonia (< 1 month) Abnormal pulmonary function Acute myocardial infarction Congestive heart failure (< 1 month) History of inflammatory bowel disease Medical patient at bed rest Age 61-74 Arthroscopic surgery Major open surgery (> 45 min) Laparoscopic surgery (> 45 min) Malignancy Confined to bed (> 72 hours) Immobilizing plaster cast Central venous access Age >= 75 History of VTE Family history of VTE Factor V Leiden Prothrombin 11802I Lupus anticoagulant Anticardiolipin antibodies Elevated serum homocysteine Heparin-induced thrombocytopenia Other congenital or acquired thrombophilia Stroke (< 1 month) Elective arthroplasty Hip, pelvis, or leg fracture Acute spinal cord injury (< 1 month) Prophylaxis Regimen Total Risk Factor Score Risk Level Prophylaxis Regimen 0-1 Low Early ambulation 2 Moderate Order ONE of the following: *Sequential Compression Device (SCD) *Heparin 5000 units SQ BID 3-4 Higher Order ONE of the following medications: *Heparin 5000 units SQ TID *Enoxaparin/Lovenox 40 mg SQ daily (WT < 150 kg, CrCl > 30 mL/min) *Enoxaparin/Lovenox 30 mg SQ daily (WT < 150 kg, CrCl > 10-29 mL/min) *Enoxaparin/Lovenox 30 mg SQ BID (WT < 150 kg, CrCl > 30 mL/min) AND/OR *Sequential Compression Device (SCD) 5 or more Highest Order ONE of the following medications: *Heparin 5000 units SQ TID (Preferred with Epidurals) *Enoxaparin/Lovenox 40 mg SQ daily (WT < 150 kg, CrCl > 30 mL/min) *Enoxaparin/Lovenox 30 mg SQ daily (WT < 150 kg, CrCl > 10-29 mL/min) *Enoxaparin/Lovenox 30 mg SQ BID (WT < 150 kg, CrCl > 30 mL/min) AND *Sequential Compression Device (SCD) Assessment and Plan Problem List: (1) SIRS (systemic inflammatory response syndrome) ICD Code: R65.10 - Systemic inflammatory response syndrome (SIRS) of non- infectious origin without acute organ dysfunction (2) UTI (urinary tract infection) ICD Code: N39.0 - Urinary tract infection, site not specified (3) Gastritis ICD Code: K29.70 - Gastritis, unspecified, without bleeding (4) PNA (pneumonia) ICD Code: J18.9 - Pneumonia, unspecified organism (5) Hypokalemia ICD Code: E87.6 - Hypokalemia (6) Tobacco abuse ICD Code: Z72.0 - Tobacco use Assessment and Plan A/P: 1. SIRS: HR 99, WBC 17, Source-UTI/PNA/Gastritis. S/p Blood Cultures, Rocephin/Zithro in ER. Follow up cultures, continue IV Levaquin to cover UTI, PNA and gastritis 2. UTI: U/a w/ UTI, follow up urine cultures, IVF, monitor I/O, continue w/ IV Levaquin. 3. PNA: CT Abd/Pelvis w/ RLL infiltrate, images reviewed by me, s/p Rocephin/ Zithro, will continue w/ IV Abx as above, DuoNeb prn as needed. 4. Gastritis: c/o abdominal pain w/ associated nausea/vomiting, CT Abd/Pelvis w/ likely gastritis/peptic ulcer disease. Protonix IV, diet as tolerated, IVF, analgesics/antiemetics as needed, IV Abx 5. Tobacco Abuse: Pt counselled. Requesting NicoDerm. 6. DVT Prophylaxis: SCD/Teds 7. Social work for d/c planning as needed 8. Case discussed w/ ER physician at length, labs/records/imaging reviewed by [place] Physician Certification 2 Midnight Certification Type: Admission for Inpatient Services Order for Inpatient Services The services are ordered in accordance with Medicare regulations or non- Medicare payer requirements, as applicable. In the case of services not specified as inpatient-only, they are appropriately provided as inpatient services in accordance with the 2-midnight benchmark. Estimated LOS (days): 2 days is the estimated time the patient will need to remain in the hospital, assuming treatment plan goals are met and no additional complications. Post-Hospital Plan: Not yet determined Nani Sarabia MD Aug 01, 2017 02:58
[2017-08-01 03:57] VITALS: BP 115/69; PULSE 87; RESP 18; TEMP 97.9; O2SAT 96
[2017-08-01 08:11] VITALS: BP 110/57; PULSE 82; RESP 19; TEMP 97.9; O2SAT 57
[2017-08-01] MEDS: SUCRALFATE 1 GM TAB PO SCH ×3 (08:19→18:37)
[2017-08-01] MEDS: SODIUM CHLORIDE 0.9% FLUSH 10 ML FLUSH IV FLUSH SCH ×2 (08:20→21:00)
[2017-08-01] MEDS: DOCUSATE SODIUM 50 MG/SENNA 8.6 MG TAB PO SCH ×2 (08:20→21:07)
[2017-08-01] MEDS: ACETAMINOPHEN/HYDROcodone 325 MG/5 MG TAB PO PRN ×2 (08:25→23:01)
--- NOTE | 2017-08-01 11:16 | HHI.PR ---
Subjective Remarks Patient reports continued postprandial epigastric pain. Reports history of gastric ulcer. Denies any chest pain or shortness of breath. Asking for pain medication. Objective Vital Signs Date Time Temp Pulse Resp B/P (MAP) Pulse Ox O2 Delivery O2 Flow Rate FiO2 08/01/17 08:11 97.9 82 19 110/57 (74) 57 08/01/17 03:57 97.9 87 18 115/69 (84) 96 08/01/17 03:29 08/01/17 02:54 94 18 153/89 (110) 100 Room Air 08/01/17 00:30 18 07/31/17 23:53 20 96 Room Air 07/31/17 22:45 98.0 99 20 100 I/O 07/31/17 07/31/17 07/31/17 08/01/17 08/01/17 08/01/17 07:00 15:00 23:00 07:00 15:00 23:00 Intake Total 1350 ml Balance 1350 ml Intake IV Total 1350 ml # Voids 1 Result Diagram: 07/31/17 2349 07/31/17 234 Objective Remarks GENERAL: Patient lying in bed. Appears uncomfortable. SKIN: Warm and dry. HEAD: Normocephalic. EYES: No scleral icterus. No injection or drainage. NECK: Supple, trachea midline. No JVD. CARDIOVASCULAR: Regular rate and rhythm without murmurs, gallops, or rubs. RESPIRATORY: Breath sounds equal bilaterally. No accessory muscle use. GASTROINTESTINAL: Abdomen soft, on nondistended. Mild epigastric tenderness. MUSCULOSKELETAL: No cyanosis, or edema. BACK: Nontender without obvious deformity. No CVA tenderness. A/P Assessment and Plan //suspected Sepsis //Likely gastric ulcer with gastritis on imaging. = HR 99, WBC 17, Source-UTI/PNA/Gastritis. S/p Blood Cultures, Rocephin/ Zithro in ER. Follow up cultures, continue IV Levaquin to cover UTI, PNA and gastritis // UTI: U/a w/ UTI, follow up urine cultures, IVF, monitor I/O, continue w/ IV Levaquin. = Follow-up cultures. Continues on Levaquin. // PNA: CT Abd/Pelvis w/ RLL infiltrate, images reviewed by me, s/p Rocephin/ Zithro, will continue w/ IV Abx as above, DuoNeb prn as needed. // Gastritis: c/o abdominal pain w/ associated nausea/vomiting, CT Abd/Pelvis w / likely gastritis/peptic ulcer disease. Protonix IV, diet as tolerated, IVF, analgesics/antiemetics as needed, IV Abx = Add IV metronidazole in addition to Levaquin to cover for anaerobic infection. Consult GI // Tobacco Abuse: Pt counselled. Requesting NicoDerm. //Hypokalemia. 3.0 yesterday. Continue to monitor. // DVT Prophylaxis: SCD/Teds Discharge Planning GI consult pending. Continue treatment for sepsis. Sohan El MD Aug 01, 2017 11:16
[2017-08-01] MEDS: metroNIDAZOLE 500 MG INJ 100 ML IV SCH ×2 (11:31→18:38)
[2017-08-01] MEDS: ALPRAZolam 1 MG TAB PO PRN ×2 (11:31→21:07)
[2017-08-01 12:07] VITALS: BP 118/71; PULSE 92; RESP 20; TEMP 98.2; O2SAT 99
--- NOTE | 2017-08-01 12:20 | PD.CONS ---
HPI History of Present Illness This is a 46 year old F with PMH significant for Crohns disease, history of C. Diff, GERD, duodenal ulcers, hypothyroidism, anemia, and tobacco use who presented to the ER with complaints of abdominal pain for the past three weeks. Pt states pain is located in her epigastric area and LLQ for the past three weeks, pain has been increasing in intensity, states is constant, described as a stabbing sensation. Reports one episode of nausea with emesis yesterday, denies hematemesis. Denies unintentional weight loss. States last BM was a week ago, denies blood in stool, stools are normally loose. Pt reports known history of Crohns, last EGD and colonoscopy done by our service in August 2016 -- > Normal esophagus. Gastritis, biopsy taken. Two ulcer in the duodenum, one in the duodenal bulb and the other one in a distal bulb, no visible vessel, no bleeding. Few ulcers in the terminal ileum consistent with Crohn's disease, biopsy taken. In the cecum and ascending colon there was colitis. Rest of the colon was involved with mild diffuse colitis. Pathology (gastric antrum) antral mucosa with regenerative epithelial changes and mild active chronic gastritis (terminal ileum) acute and chronically inflamed granulation tissue with attached acute inflammatory exudate, consistent with acute ulceration ( ascending colon) acute colitis- inflammation alone is not sufficient for a diagnosis of IBD however, there is deep submucosal chronic inflammation, suggesting the possibility of Crohns disease. Pt was unable to follow up with our service in the office because her insurance was not covered, she states she followed up with Dr. Burgos in [place]. Pt is not on any medication for her Crohns, states has been on steroids in the past. Pt does report having and EGD in March and states ulcers were seen and her doctor also removed precancerous cells from her distal esophagus. Denies ETOH and illicit drugs. Smokes 1 PPD. (Jessica Nicholson) PFSH Past Medical History PMH: Crohn's Disease, Anxiety, GERD, Hypothyroidism, Anemia and Tobacco Abuse Past Surgical History PAST SURGICAL HISTORY: Left Breast Lumpectomy, Jaw ORIF, Colonoscopy, EGD (Jessica Nicholson) Coded Allergies: No Known Allergies (Verified Allergy, Unknown, 07/31/17) Family History PAST FAMILY HISTORY: Reviewed. No h/o DM or CAD Social History PAST SOCIAL HISTORY: Negative for alcohol or drugs. Smokes 1ppd. 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) Review of Systems Gastrointestinal: COMPLAINS OF: Abdominal pain, Constipation, Nausea, Vomiting , DENIES: Black stools, Bloody stools, Diarrhea, Difficulty Swallowing, Odynophagia, Swelling of Abdomen, Heartburn, Hematemesis (Jessica NicholsonP) GI Exam Vitals I&O Vital Signs Date Time Temp Pulse Resp B/P (MAP) Pulse Ox O2 Delivery O2 Flow Rate FiO2 08/01/17 08:11 97.9 82 19 110/57 (74) 57 08/01/17 03:57 97.9 87 18 115/69 (84) 96 08/01/17 03:29 08/01/17 02:54 94 18 153/89 (110) 100 Room Air 08/01/17 00:30 18 07/31/17 23:53 20 96 Room Air 07/31/17 22:45 98.0 99 20 100 I/O 07/31/17 07/31/17 07/31/17 08/01/17 08/01/17 08/01/17 07:00 15:00 23:00 07:00 15:00 23:00 Intake Total 1350 ml Balance 1350 ml Intake IV Total 1350 ml # Voids 1 Imaging Last Impressions Abdomen/Pelvis CT 08/01/17 0043 Signed Impressions: CONCLUSION: 1. Prominent distal gastric body wall thickening testing gastritis or peptic u lcer disease. No free air or free fluid. 2. Mild patchy parenchymal opacity in the right lung base. Chest X-Ray 08/01/17 0000 Signed Impressions: CONCLUSION: No acute cardiopulmonary disease identified. Laboratory Test 07/31/17 23:40 07/31/17 23:49 Urine Color LIGHT-YELLOW Urine Turbidity HAZY Urine pH 5.5 Urine Specific [place] 1.012 Urine Protein NEG mg/dL Urine Glucose (UA) NEG mg/dL Urine Ketones NEG mg/dL Urine Occult Blood NEG Urine Nitrite NEG Urine Bilirubin NEG Urine Urobilinogen LESS THAN 2.0 MG/DL Urine Leukocyte Esterase SMALL Urine RBC 1 /hpf Urine WBC 3 /hpf Urine Squamous Epithelial Cells 16 /hpf Urine Bacteria MOD /hpf Microscopic Urinalysis Comment CULTURE INDICATED Lactic Acid Level 0.6 mmol/L White Blood Count 17.6 TH/MM3 Red Blood Count 2.80 MIL/MM3 Hemoglobin 9.6 GM/DL Hematocrit 26.6 % Mean Corpuscular Volume 94.8 FL Mean Corpuscular Hemoglobin 34.2 PG Mean Corpuscular Hemoglobin Concent 36.1 % Red Cell Distribution Width 15.7 % Platelet Count 548 TH/MM3 Mean Platelet Volume 7.0 FL Neutrophils (%) (Auto) 78.2 % Lymphocytes (%) (Auto) 15.6 % Monocytes (%) (Auto) 4.5 % Eosinophils (%) (Auto) 1.2 % Basophils (%) (Auto) 0.5 % Neutrophils # (Auto) 13.8 TH/MM3 Lymphocytes # (Auto) 2.8 TH/MM3 Monocytes # (Auto) 0.8 TH/MM3 Eosinophils # (Auto) 0.2 TH/MM3 Basophils # (Auto) 0.1 TH/MM3 CBC Comment AUTO DIFF Differential Comment AUTO DIFF CONFIRMED Hypersegmented Polys 1+ Platelet Estimate HIGH Platelet Morphology Comment NORMAL Prothrombin Time 10.8 SEC Prothromb Time International Ratio 1.1 RATIO Activated Partial Thromboplast Time 29.5 SEC Blood Urea Nitrogen 10 MG/DL Creatinine 0.56 MG/DL Random Glucose 85 MG/DL Total Protein 6.9 GM/DL Albumin 3.0 GM/DL Calcium Level 8.8 MG/DL Magnesium Level 1.8 MG/DL Alkaline Phosphatase 86 U/L Aspartate Amino Transf (AST/SGOT) 8 U/L Alanine Aminotransferase (ALT/SGPT) 11 U/L Total Bilirubin 0.2 MG/DL Sodium Level 139 MEQ/L Potassium Level 3.0 MEQ/L Chloride Level 105 MEQ/L Carbon Dioxide Level 23.3 MEQ/L Anion Gap 11 MEQ/L Estimat Glomerular Filtration Rate 116 ML/MIN Total Creatine Kinase 20 U/L Troponin I LESS THAN 0.02 NG/ML C-Reactive Protein 1.18 MG/DL B-Type Natriuretic Peptide 7 PG/ML Lipase 81 U/L Date/Time Source Procedure Growth Status 08/01/17 02:17 Blood Peripheral Aerobic Blood Culture Pending Received 08/01/17 02:17 Blood Peripheral Anaerobic Blood Culture Pending Received 07/31/17 23:40 Urine Random Urine Urine Culture Pending Worksheet Physical Examination HEENT: Normocephalic; atraumatic CHEST: Even/unlabored CARDIAC: RRR ABDOMEN: Soft, nondistended, epigastric and left sided tenderness, bowel sounds active EXTREMITIES: No clubbing, cyanosis, or edema. SKIN: Normal; no rash; no jaundice. CAN PATCHER: Alert and oriented times three. (Jessica Nicholson) Assessment and Plan Plan Assessment: - Abdominal pain x 3 weeks- increasing in intensity, states constant, described as a stabbing pain- located in epigastric area and left sided abdomen. One episode of nausea with emesis yesterday, denies hematemesis. Last BM was one week ago, states BMs are normally loose due to history of Crohns. Denies hematochezia and melena. Crohns disease Last EGD and colonoscopy done by our service in August 2016 --> Normal esophagus. Gastritis, biopsy taken. Two ulcer in the duodenum, one in the duodenal bulb and the other one in a distal bulb, no visible vessel, no bleeding. Few ulcers in the terminal ileum consistent with Crohn's disease, biopsy taken. In the cecum and ascending colon there was colitis. Rest of the colon was involved with mild diffuse colitis. Pathology (gastric antrum) antral mucosa with regenerative epithelial changes and mild active chronic gastritis (terminal ileum) acute and chronically inflamed granulation tissue with attached acute inflammatory exudate, consistent with acute ulceration (ascending colon) acute colitis- inflammation alone is not sufficient for a diagnosis of IBD however, there is deep submucosal chronic inflammation, suggesting the possibility of Crohns disease. Followed up with Dr. Burgos in [place]. Pt is not on any medication for her Crohns, states has been on steroids in the past. Pt does report having and EGD in March and ulcers were seen and her doctor also removed precancerous cells from her distal esophagus. Denies ETOH and illicit drugs. Smokes [address] abdomen and pelvis W IV contrast (08/01) Prominent distal gastric body wall thickening testing gastritis or peptic ulcer disease. No free air or free fluid. Plan: EGD/colonoscopy tomorrow Indication (colonoscopy: L sided pain and no BM EGD: CT findings and epigastric pain) Obtain consent Clear liquids today Golytely prep NPO after MN Protonix Reglan Further recommendations based on findings of above Pt has been seen and examined by myself and Dr. Aguilera and this note is written on his behalf (Jessica Nicholson) Physician Comments Seen with Jessica. Plan as above, will proceed with EGD and Colonoscopy in Am Further recommendations to follow. Thank you for the consult. (Julio Cesar Aguilera MD) Jessica Nicholson Aug 01, 2017 12:20 Julio Cesar Aguilera MD Aug 01, 2017 13:01
[2017-08-01 14:16] LABS: AUTOMATED NEUTROPHIL # 8.6 TH/MM3 (1.8-7.7); BASOPHIL % 0.3 % (0.0-2.0); EOSINOPHIL # 0.1 TH/MM3 (0-0.4); EOSINOPHIL % 1.1 % (0.0-4.0); HEMATOCRIT 28.4 % (35.0-46.0); HEMOGLOBIN 9.2 GM/DL (11.6-15.3); LYMPH % 13.5 % (9.0-44.0); LYMPHOCYTE # 1.4 TH/MM3 (1.0-4.8); MEAN CELL VOLUME 96.2 FL (80.0-100.0); MEAN CORPUSCULAR HEMOGLOBIN 31.3 PG (27.0-34.0); MEAN CORPUSCULAR HGB CONC 32.5 % (32.0-36.0); MEAN PLATELET VOLUME 6.9 FL (7.0-11.0); MONOCYTE # 0.4 TH/MM3 (0-0.9); NEUT % 81.1 % (16.0-70.0); PLATELET COUNT 566 TH/MM3 (150-450); RED BLOOD COUNT 2.96 MIL/MM3 (4.00-5.30); WHITE BLOOD COUNT 10.6 TH/MM3 (4.0-11.0)
[2017-08-01 14:17] LABS: ALBUMIN 2.8 GM/DL (3.4-5.0); ALT (GPT) 8 U/L (10-53); AST (GOT) 7 U/L (15-37); BICARBONATE 25.4 MEQ/L (21.0-32.0); BLOOD UREA NITROGEN 6 MG/DL (7-18); CALCIUM 8.3 MG/DL (8.5-10.1); CHLORIDE 111 MEQ/L (98-107); GLOMERULAR FILTRATION RATE 171 ML/MIN (>89); GLUCOSE,RANDOM 86 MG/DL (74-106); SODIUM (NA) 145 MEQ/L (136-145)
[2017-08-01 14:20] LABS: ALKALINE PHOSPHATASE 88 U/L (45-117); TOTAL BILIRUBIN ADULT 0.2 MG/DL (0.2-1.0); TOTAL PROTEIN 6.5 GM/DL (6.4-8.2)
--- NOTE | 2017-08-01 14:44 | EKG ---
Date Performed: 07/31/2017 Time Performed: 23:41:30 PTAGE: 46 years EKG: Sinus rhythm NORMAL ECG Since the PREVIOUS TRACING , no significant change noted PREVIOUS TRACIN03/09/2017 16.38 DOCTOR: Phuc Metz Interpretating Date/Time 08/01/2017 14:43:00
[2017-08-01 15:44] VITALS: BP 110/66; PULSE 91; RESP 18; TEMP 98.1; O2SAT 98
[2017-08-01] MEDS ORDERED: PEG (High)/E-LYTE SOLN 4000 ML BTL PO ONE (16:00)
[2017-08-01 20:19] VITALS: BP 120/70; PULSE 99; RESP 16; TEMP 97.6; O2SAT 100
[2017-08-01] MEDS: PANTOPRAZOLE SODIUM 40 MG VIAL IV PUSH SCH (21:07)
[2017-08-01] MEDS ORDERED: LEVOFLOXACIN 750 MG PREMIX INJ 150 ML IV SCH (23:00)
[2017-08-02] MEDS: HYDROmorphone HCL PF 2 MG/ML VIAL IV PUSH PRN ×4 (00:37→16:12)
[2017-08-02 01:30] VITALS: BP 115/70; PULSE 88; RESP 16; TEMP 97.2; O2SAT 99
[2017-08-02] MEDS: ACETAMINOPHEN/HYDROcodone 325 MG/5 MG TAB PO PRN (03:36)
[2017-08-02] MEDS: metroNIDAZOLE 500 MG INJ 100 ML IV SCH ×2 (03:36→11:45)
[2017-08-02 05:08] VITALS: BP 122/66; PULSE 91; RESP 18; TEMP 98.2; O2SAT 97
[2017-08-02] MEDS: ALPRAZolam 1 MG TAB PO PRN (05:34)
[2017-08-02] MEDS: METOCLOPRAMIDE HCL 10 MG/2 ML VIAL IV PUSH PRN (05:35)
[2017-08-02 06:59] LABS: AUTOMATED NEUTROPHIL # 4.2 TH/MM3 (1.8-7.7); BASOPHIL # 0.1 TH/MM3 (0-0.2); BASOPHIL % 0.8 % (0.0-2.0); EOSINOPHIL # 0.2 TH/MM3 (0-0.4); EOSINOPHIL % 2.7 % (0.0-4.0); HEMATOCRIT 25.3 % (35.0-46.0); HEMOGLOBIN 8.2 GM/DL (11.6-15.3); LYMPH % 30.6 % (9.0-44.0); LYMPHOCYTE # 2.1 TH/MM3 (1.0-4.8); MEAN CELL VOLUME 96.2 FL (80.0-100.0); MEAN CORPUSCULAR HEMOGLOBIN 31.3 PG (27.0-34.0); MEAN CORPUSCULAR HGB CONC 32.5 % (32.0-36.0); MEAN PLATELET VOLUME 6.9 FL (7.0-11.0); MONO % 5.6 % (0.0-8.0); MONOCYTE # 0.4 TH/MM3 (0-0.9); NEUT % 60.3 % (16.0-70.0); PLATELET COUNT 484 TH/MM3 (150-450); RED BLOOD COUNT 2.63 MIL/MM3 (4.00-5.30)
[2017-08-02 07:04] LABS: ALBUMIN 2.5 GM/DL (3.4-5.0); ALT (GPT) 9 U/L (10-53); AST (GOT) 10 U/L (15-37); BICARBONATE 24.4 MEQ/L (21.0-32.0); BLOOD UREA NITROGEN 2 MG/DL (7-18); CALCIUM 8.1 MG/DL (8.5-10.1); CHLORIDE 112 MEQ/L (98-107); CREATININE 0.37 MG/DL (0.50-1.00); GLOMERULAR FILTRATION RATE 187 ML/MIN (>89); GLUCOSE,RANDOM 79 MG/DL (74-106); SODIUM (NA) 146 MEQ/L (136-145)
[2017-08-02 07:07] LABS: ALKALINE PHOSPHATASE 76 U/L (45-117); TOTAL BILIRUBIN ADULT 0.2 MG/DL (0.2-1.0); TOTAL PROTEIN 5.7 GM/DL (6.4-8.2)
[2017-08-02 08:00] VITALS: BP 110/66; PULSE 83; RESP 16; TEMP 98.1; O2SAT 97
[2017-08-02] MEDS: SODIUM CHLOR 0.9% 1000 ML INJ 1,000 ML IV SCH (08:16)
[2017-08-02] MEDS: PANTOPRAZOLE SODIUM 40 MG VIAL IV PUSH SCH (08:17)
[2017-08-02] MEDS: SODIUM CHLORIDE 0.9% FLUSH 10 ML FLUSH IV FLUSH SCH (08:17)
[2017-08-02] MEDS: DOCUSATE SODIUM 50 MG/SENNA 8.6 MG TAB PO SCH (08:17)
[2017-08-02] MEDS: SUCRALFATE 1 GM TAB PO SCH ×3 (08:17→16:13)
[2017-08-02 12:00] VITALS: BP 129/76; PULSE 96; RESP 16; TEMP 98.6; O2SAT 98
[2017-08-02] MEDS ORDERED: LIDOCAINE HCL 1% PF 5 ML SYRINGE OTHER ONE (12:00)
[2017-08-02] MEDS ORDERED: PROPOFOL 200 MG/20 ML AMP IV ONE (12:00)
--- NOTE | 2017-08-02 13:25 | GIPROC ---
[facility] [address] [facility]. [facility], [id number] EGD PROCEDURE REPORT EXAM DATE: 08/02/2017 PATIENT NAME: Asha Wall MR #: [id number] BIRTHDATE: 1970 ATTENDING: Julio Cesar Aguilera MD ORDER #: [id number] SENIOR QUALITY TECHNICIAN: Sofía Turk and Rita Berumen STATUS: inpatient INDICATIONS: The patient is a 46 yr old female here for an EGD due to abdominal pain PROCEDURE PERFORMED: EGD w/ biopsy MEDICATIONS: None and Per Anesthesia. TOPICAL ANESTHETIC: none CONSENT: The patient understands the risks and benefits of the procedure and understands that these risks include, but are not limited to: sedation, allergic reaction, infection, perforation and/or bleeding. Alternative means of evaluation and treatment include, among others: physical exam, x-rays, and/or surgical intervention. The patient elects to proceed with this endoscopic procedure. medical equipment was checked for proper function. Hand hygiene and appropriate measures for infection prevention was taken. After the risks, benefits and alternatives of the procedure were thoroughly explained, Informed consent was verified, confirmed and timeout was successfully executed by the treatment team. The patient was anesthetized with topical anesthesia and the [id number] (Pedi C) endoscope was introduced through the mouth and advanced to the third portion of the duodenum. Retroflexion was performed and was normal The gastroscope was then slowly withdrawn and removed. ESOPHAGUS: There was LA Class B esophagitis noted. STOMACH: There was mild gastritis in the gastric antrum. Multiple biopsies were performed using cold forceps. Sample sent for histology. DUODENUM: A large non-bleeding non-bleeding, round, deep and clean-based ulcer with surrounding edema was found in the 1st part of the duodenum. ADVERSE EVENTS: There were no complications. IMPRESSIONS: 1. There was LA Class B esophagitis noted 2. There was mild gastritis in the gastric antrum; multiple biopsies were performed 3. Large non-bleeding ulcer was found in the 1st part of the duodenum RECOMMENDATIONS: 1. Await biopsy results. Biopsy results will not be ready for 7-10 days. If you don't hear from us in two weeks, call our office for biopsy results. 2. Continue PPI PATIENT CONDITION: stable DISPOSITION: Observation REPEAT EXAM: NONE Julio Cesar Aguilera MD eSigned: Julio Cesar Aguilera MD 08/02/2017 1:24 PM cc: PATIENT NAME: Asha Wall MR#: [id number]
--- NOTE | 2017-08-02 13:26 | GIPROC ---
[facility] [address] [facility]. [facility], [id number] COLONOSCOPY PROCEDURE REPORT EXAM DATE: 08/02/2017 PATIENT NAME: Asha Wall MR #: [id number] BIRTHDATE: 1970 ENDOSCOPIST: Julio Cesar Aguilera MD ORDER #: [id number] OIL SPREADER OPERATOR: Sofía Turk and Rita Berumen STATUS: inpatient INDICATIONS: The patient is a 46 yr old female here for a colonoscopy due to abdominal pain PROCEDURE PERFORMED: Colonoscopy, diagnostic MEDICATIONS: None and Per Anesthesia. PREP QUALITY: good PREP TYPE:GoLytely ESTIMATED BLOOD LOSS: None CONSENT: The patient understands the risks and benefits of the procedure and understands that these risks include, but are not limited to: sedation, allergic reaction, infection, perforation and/or bleeding. Alternative means of evaluation and treatment include, among others: physical exam, x-rays, and/or surgical intervention. The patient elects to proceed with this endoscopic procedure. medical equipment was checked for proper function. Hand hygiene and appropriate measures for infection prevention was taken. After the risks, benefits and alternatives of the procedure were thoroughly explained, Informed consent was verified, confirmed and timeout was successfully executed by the treatment team. A digital exam revealed no abnormalities of the rectum The Pentax [id number] endoscope was introduced through the anus and advanced to the cecum, which was identified by both the appendix and ileocecal valve. The instrument was then slowly withdrawn as the colon was fully examined. COLON FINDINGS: The colonic mucosa appeared normal throughout the entire examined colon and in the terminal ileum. Retroflexed views revealed no abnormalities The scope was then completely withdrawn from the patient and the procedure terminated. PROCEDURE WITHDRAWAL TIME:9minutes ADVERSE EVENTS: There were no complications. IMPRESSIONS: 1. The colonic mucosa appeared normal throughout the entire examined colon and in the terminal ileum 2. Retroflexed views revealed no abnormalitie RECOMMENDATIONS: No treatment RECALL: NONE Julio Cesar Aguilera MD eSigned: Julio Cesar Aguilera MD 08/02/2017 1:26 PM cc:
[2017-08-02] MEDS ORDERED: DO NOT ADM ANY ANTICOAGULANT DRUGS PRN (13:32)
--- NOTE | 2017-08-02 15:30 | HHI.PR ---
Subjective Remarks She says that epigastric pain somewhat better today. Denies any chest pain or shortness of breath. Denies any nausea or vomiting. Says she feels like going home. Objective Vital Signs Date Time Temp Pulse Resp B/P (MAP) Pulse Ox O2 Delivery O2 Flow Rate FiO2 08/02/17 13:45 97.7 98 16 114/59 (77) 96 08/02/17 13:32 97.9 94 16 102/58 (73) 98 08/02/17 12:00 98.6 96 16 129/76 (93) 98 08/02/17 08:00 98.1 83 16 110/66 (81) 97 08/02/17 06:49 18 08/02/17 05:31 18 08/02/17 05:08 98.2 91 18 122/66 (84) 97 08/02/17 01:30 97.2 88 16 115/70 (85) 99 08/01/17 20:19 97.6 99 16 120/70 (87) 100 08/01/17 15:44 98.1 91 18 110/66 (81) 98 I/O 08/01/17 08/01/17 08/01/17 08/02/17 08/02/17 08/02/17 07:00 15:00 23:00 07:00 15:00 23:00 Intake Total 1350 ml 780 ml 100 ml Output Total 1800 ml Balance 1350 ml -1020 ml 100 ml Intake Oral 780 ml IV Total 1350 ml 100 ml Output Urine Total 1800 ml # Voids 1 2 1 Result Diagram: 08/02/17 0545 08/02/17 0545 Objective Remarks GENERAL: Patient lying in bed. Appears uncomfortable. Exam unchanged. SKIN: Warm and dry. HEAD: Normocephalic. EYES: No scleral icterus. No injection or drainage. NECK: Supple, trachea midline. No JVD. CARDIOVASCULAR: Regular rate and rhythm without murmurs, gallops, or rubs. RESPIRATORY: Breath sounds equal bilaterally. No accessory muscle use. GASTROINTESTINAL: Abdomen soft, on nondistended. Mild epigastric tenderness. MUSCULOSKELETAL: No cyanosis, or edema. BACK: Nontender without obvious deformity. No CVA tenderness. A/P Assessment and Plan //suspected Sepsis //Likely gastric ulcer with gastritis on imaging. = HR 99, WBC 17, Source-UTI/PNA/Gastritis. S/p Blood Cultures, Rocephin/ Zithro in ER. Follow up cultures, continue IV Levaquin to cover UTI, PNA and gastritis = EGD with duodenal ulcer with inflammation, no bleeding. Will discharge home on p.o. antibiotics, PPI. // UTI: U/a w/ UTI, follow up urine cultures, IVF, monitor I/O, continue w/ IV Levaquin. = Mixed gram positives and negatives on culture. // PNA: CT Abd/Pelvis w/ RLL infiltrate, images reviewed by me, s/p Rocephin/ Zithro, will continue w/ IV Abx as above, DuoNeb prn as needed. // Gastritis: c/o abdominal pain w/ associated nausea/vomiting, CT Abd/Pelvis w / likely gastritis/peptic ulcer disease. Protonix IV, diet as tolerated, IVF, analgesics/antiemetics as needed, IV Abx = Add IV metronidazole in addition to Levaquin to cover for anaerobic infection. Consult GI. = Continue antibiotics at discharge. Follow-up with GI as outpatient. // Tobacco Abuse: Pt counselled. Requesting NicoDerm. //Hypokalemia. 3.0 yesterday. Continue to monitor. = suspect lab error. Recheck. //Hypernatremia. Expect lab error. Recheck. // DVT Prophylaxis: SCD/Teds Discharge Planning Discharge home on antibiotics to complete treatment course, PPI. Follow-up with GI as outpatient. Sohan El MD Aug 02, 2017 15:30
[2017-08-02] MEDS ORDERED: PANT40TA3 PO (15:35)
[2017-08-02] MEDS ORDERED: HYDR-3516 PO (15:35)
[2017-08-02] MEDS ORDERED: METR1TAB76 PO (15:35)
[2017-08-02] MEDS ORDERED: LEVO750T3 PO (15:35)
--- NOTE | 2017-08-02 15:40 | HHI.DS ---
Discharge Summary Admission Date Aug 01, 2017 at 02:00 Discharge Date: Aug 02, 2017 Admitting Diagnosis Gastritits, UTI, Lung infiltrate (1) SIRS (systemic inflammatory response syndrome) ICD Code: R65.10 - Systemic inflammatory response syndrome (SIRS) of non- infectious origin without acute organ dysfunction (2) UTI (urinary tract infection) ICD Code: N39.0 - Urinary tract infection, site not specified (3) Gastritis ICD Code: K29.70 - Gastritis, unspecified, without bleeding (4) PNA (pneumonia) ICD Code: J18.9 - Pneumonia, unspecified organism (5) Hypokalemia ICD Code: E87.6 - Hypokalemia (6) Tobacco abuse ICD Code: Z72.0 - Tobacco use Procedures EGD and colonoscopy. Please see report. Brief History - From Admission This is a 46-year-old female with a PMH of Crohn's Disease, Anxiety, GERD, Hypothyroidism, Anemia and Tobacco Abuse who presented to the ER with complaints of epigastric abdominal pain and LLQ abdominal pain x3 wks. States symptoms do not feel like Crohn's exacerbation, denies diarrhea which she normally gets w/ Crohn's flare. Does note decreased PO intake x3-4 days due to symptoms. Pain is severe, 8/10, constant, non-radiating, worse after eating. Denies fever or chills. On arrival, vitals stable, Afebrile. WBC 17.6. K+ 3.0. Troponin negative. Lipase normal. INR 1.1. UA positive for UTI. CXR with no acute findings. CT Abdomen/Pelvis with prominent gastric body wall thickening likely gastritis, mild patchy opacity right lung base. S/p Rocephin/ Zithro in ER. CBC/BMP: 08/02/17 0545 08/02/17 0545 Significant Findings Laboratory Tests Test 07/31/17 23:40 07/31/17 23:49 08/01/17 13:05 08/02/17 05:45 Urine Turbidity HAZY (CLEAR) Urine Leukocyte Esterase SMALL (NEG) Urine Bacteria MOD /hpf (NONE) White Blood Count 17.6 TH/MM3 (4.0-11.0) Red Blood Count 2.80 MIL/MM3 (4.00-5.30) 2.96 MIL/MM3 (4.00-5.30) 2.63 MIL/MM3 (4.00-5.30) Hemoglobin 9.6 GM/DL (11.6-15.3) 9.2 GM/DL (11.6-15.3) 8.2 GM/DL (11.6-15.3) Hematocrit 26.6 % (35.0-46.0) 28.4 % (35.0-46.0) 25.3 % (35.0-46.0) Mean Corpuscular Hemoglobin 34.2 PG (27.0-34.0) Mean Corpuscular Hemoglobin Concent 36.1 % (32.0-36.0) Platelet Count 548 TH/MM3 (150-450) 566 TH/MM3 (150-450) 484 TH/MM3 (150-450) Neutrophils (%) (Auto) 78.2 % (16.0-70.0) 81.1 % (16.0-70.0) Neutrophils # (Auto) 13.8 TH/MM3 (1.8-7.7) 8.6 TH/MM3 (1.8-7.7) Hypersegmented Polys 1+ (NORMAL) Platelet Estimate HIGH (NORMAL) Albumin 3.0 GM/DL (3.4-5.0) 2.8 GM/DL (3.4-5.0) 2.5 GM/DL (3.4-5.0) Aspartate Amino Transf (AST/SGOT) 8 U/L (15-37) 7 U/L (15-37) 10 U/L (15-37) Potassium Level 3.0 MEQ/L (3.5-5.1) 3.1 MEQ/L (3.5-5.1) Total Creatine Kinase 20 U/L (26-192) Troponin I LESS THAN 0.02 NG/ML C-Reactive Protein 1.18 MG/DL (0.00-0.30) Mean Platelet Volume 6.9 FL (7.0-11.0) 6.9 FL (7.0-11.0) Blood Urea Nitrogen 6 MG/DL (7-18) 2 MG/DL (7-18) Creatinine 0.40 MG/DL (0.50-1.00) 0.37 MG/DL (0.50-1.00) Calcium Level 8.3 MG/DL (8.5-10.1) 8.1 MG/DL (8.5-10.1) Alanine Aminotransferase (ALT/SGPT) 8 U/L (10-53) 9 U/L (10-53) Chloride Level 111 MEQ/L (98-107) 112 MEQ/L (98-107) Total Protein 5.7 GM/DL (6.4-8.2) Sodium Level 146 MEQ/L (136-145) Test 08/02/17 15:15 Imaging Last Impressions Abdomen/Pelvis CT 08/01/17 0043 Signed Impressions: CONCLUSION: 1. Prominent distal gastric body wall thickening testing gastritis or peptic u lcer disease. No free air or free fluid. 2. Mild patchy parenchymal opacity in the right lung base. Chest X-Ray 08/01/17 0000 Signed Impressions: CONCLUSION: No acute cardiopulmonary disease identified. Hospital Course CT abdomen as above with duodenal inflammation. Patient was found to have sepsis likely secondary to small bowel infection/inflammation secondary to ulcer. Patient was started on IV antibiotics with improvement. EGD was consulted, performed EGD which shows duodenal ulcer with surrounding inflammation. Patient will be continued on PPI, discharged home on IV antibiotics. Follow with GI as outpatient to go over biopsy results. Patient was also found to have hypokalemia with potassium of 3.1. This was replaced and will need be followed. Follow-up with primary care as outpatient For problem-based summary from most recent progress note, please see below. //suspected Sepsis //Likely gastric ulcer with gastritis on imaging. = HR 99, WBC 17, Source-UTI/PNA/Gastritis. S/p Blood Cultures, Rocephin/ Zithro in ER. Follow up cultures, continue IV Levaquin to cover UTI, PNA and gastritis = EGD with duodenal ulcer with inflammation, no bleeding. Will discharge home on p.o. antibiotics, PPI. // UTI: U/a w/ UTI, follow up urine cultures, IVF, monitor I/O, continue w/ IV Levaquin. = Mixed gram positives and negatives on culture. // PNA: CT Abd/Pelvis w/ RLL infiltrate, images reviewed by me, s/p Ad/ Nancy, will continue w/ IV Abx as above, DuoNeb prn as needed. // Gastritis: c/o abdominal pain w/ associated nausea/vomiting, CT Abd/Pelvis w / likely gastritis/peptic ulcer disease. Protonix IV, diet as tolerated, IVF, analgesics/antiemetics as needed, IV Abx = Add IV metronidazole in addition to Levaquin to cover for anaerobic infection. Consult GI. = Continue antibiotics at discharge. Follow-up with GI as outpatient. // Tobacco Abuse: Pt counselled. Requesting NicoDerm. //Hypokalemia. 3.0 yesterday. Continue to monitor. = suspect lab error. Recheck. //Hypernatremia. Expect lab error. Recheck. // DVT Prophylaxis: SCD/Teds Discharge Planning Discharge home on antibiotics to complete treatment course, PPI. Follow-up with GI as outpatient. Pt Condition on Discharge: Good Discharge Disposition: Discharge Home Discharge Time: > 30 minutes Discharge Instructions DIET: Follow Instructions for: As Tolerated, No Restrictions Activities you can perform: Regular-No Restrictions Follow up Referrals: Gastroenterology - 1 Week with Julio Cesar Aguilera MD PCP Follow-up - 1 Week with Jasmyne Meño New Medications: Levofloxacin (Levofloxacin) 750 Mg Tablet 750 MG PO DAILY for Infection for 10 Days, #10 TAB 0 Refills Metronidazole (Metronidazole) 500 Mg Tab 500 MG PO TID for Infection for 10 Days, TAB 0 Refills Hydrocodone/Acetaminophen (Hydrocodone-Acetamin 5-325 mg) 5 Mg-325 Mg Tablet 1 TAB PO Q4H PRN for PAIN GREATER THAN 5, #20 TAB Changed Medications: Pantoprazole (Pantoprazole) 40 Mg Tab 40 MG PO BID for ulcer, #30 TAB 0 Refills (Changed from: 80 MG; DAILY) Take 30 minutes before meals. Continued Medications: Alprazolam (Alprazolam) 0.5 Mg Tab 1 MG PO BID PRN for ANXIETY, #10 TAB 0 Refills Sucralfate (Carafate) 1 Gram Tab 1 GM PO TID for Ulcer Prevention, #90 TAB 0 Refills On empty stomach Sohan El MD Aug 02, 2017 15:40
[2017-08-02 16:00] VITALS: BP 132/76; PULSE 102; RESP 16; TEMP 99; O2SAT 99
[2017-08-02] MEDS ORDERED: POTASSIUM CHLORIDE 10 MEQ CONTROLLED RELEASE TAB PO ONE (16:00)
[2017-08-02 16:22] LABS: BICARBONATE 25.6 MEQ/L (21.0-32.0); BLOOD UREA NITROGEN LESS THAN 1 MG/DL (7-18); CALCIUM 8.4 MG/DL (8.5-10.1); CHLORIDE 108 MEQ/L (98-107); CREATININE 0.38 MG/DL (0.50-1.00); GLOMERULAR FILTRATION RATE 182 ML/MIN (>89); GLUCOSE,RANDOM 99 MG/DL (74-106); SODIUM (NA) 144 MEQ/L (136-145)
== END 2017-08-02 16:59 | disposition home or self-care (01) | DRG 871 ==
LOC: NEPC 22:11 → NEDA 08-01 02:00 → NEPHCDU 08-01 03:29
PROVIDERS: ADMIT Internal Medicine; ATTEND Internal Medicine
PROC: 0DB78ZX Excision of Stomach, Pylorus, Via Natural or Artificial Opening Endoscopic, Diagnostic (ICD-10-PCS; principal; 2017-08-02 12:51)
PROC: 0DJD8ZZ Inspection of Lower Intestinal Tract, Via Natural or Artificial Opening Endoscopic (ICD-10-PCS; 2017-08-02 12:51)
DX: A41.9 Sepsis, unspecified organism (principal); J18.9 Pneumonia, unspecified organism; N39.0 Urinary tract infection, site not specified; K50.90 Crohn's disease, unspecified, without complications; K26.9 Duodenal ulcer, unspecified as acute or chronic, without hemorrhage or perforation; E87.6 Hypokalemia; K29.50 Unspecified chronic gastritis without bleeding; E78.5 Hyperlipidemia, unspecified; E03.9 Hypothyroidism, unspecified; F17.210 Nicotine dependence, cigarettes, uncomplicated; D64.9 Anemia, unspecified; F41.9 Anxiety disorder, unspecified; K21.0 Gastro-esophageal reflux disease with esophagitis; Z87.11 Personal history of peptic ulcer disease
CPT/HCPCS: 71045; 74177; 80048; 80053; 81001; 82550; 83605; 83690; 83735; 83880; 84484; 84703; 85025; 85610; 85730; 86140; 87040; 87086; 88305; 88312; 93005; 96361; 96365; 96375; C9113; J0456; J0696; J1170; J1956; J2270; J2765; J7030; J7050; Q9967